=== PATIENT | female | born 1935 | race Asian ===

== ENCOUNTER 2020-03-12 16:49 | Inpatient (IN) | payer MEDICARE ==
[~2020-03-12] VITALS: Ht 152.4 cm; Wt 51.5 kg
--- NOTE | 2020-03-12 17:25 | Emergency Room Report ---
History of Present Illness General Chief Complaint: Flu Like Symptoms Source: Patient, EMS Present Illness HPI Disclaimer: Please note that this report is being documented using DRAGON technology. This can lead to erroneous entry secondary to incorrect interpretation by the dictating instrument. HPI: 84-year-old primarily Romanian speaking female presents for evaluation of myalgias, fevers and shortness of breath. EMS acting as financial officer. Patient reports yesterday she began to feel diffuse aches and pains in her joints and muscles, fatigue, decreased appetite, nonproductive cough and low-grade fevers. She felt more short of breath today called EMS. is hospitalized with COVID-19 pneumonia at [facility]. She tested negative by outpatient testing 2 days ago but then became symptomatic. Did not take any medication prior to arrival. EMS found her saturating 90% on room air but improved with supplemen kasey oxygen. PMH: Hypertension PSH: Reviewed Allergies: NKDA Social Hx: Reviewed Allergies: Coded Allergies: No Known Allergies (Unverified , 03/12/20) COVID-19 Screening Contact w/high risk pt: No Experienced COVID-19 symptoms?: Yes COVID-19 Testing performed [employer]: Yes COVID-19 Screening: Negative COVID-19 COVID-19 Testing Source: 3 days ago Nursing Documentation-PMH Past Medical History: No History, Except For Hx Hypertension: Yes Review of Systems All Other Systems: negative except mentioned in HPI Physical Exam Vital Signs Date Time Temp Pulse Resp B/P (MAP) Pulse Ox O2 Delivery O2 Flow Rate FiO2 03/12/20 16:45 99.3 108 16 143/80 (101) 99 Nasal Cannula 4.0 General: Awake and alert, appears fatigued HEENT: NC/AT. EOMI. Cardiovascular: Tachycardic Resp: Nasal cannula. Normal work of breathing. Occasional cough. No wheezing. Abdomen: Abdomen is soft, nondistended. Nontender Skin: Intact. No abrasions, laceration or rash over the exposed skin MSK: Normal tone and bulk. Moving all extremities. No obvious deformity. Neuro: Awake and alert. Mentating appropriately. Procedures Critical Care Time Critical Care Time Total critical care time: Approximately 45 minutes Due to a high probability of clinically significant, life threatening deterioration, the patient required the highest level of preparedness to int ervene emergently and I personally spent this critical care time directly and personally managing the patient. This critical care time included obtaining a history, examining the patient, pulse oximetry, ordering and reviewing studies, ordering treatments, evaluating response to treatment and updating management plan as needed, frequent reassessment and discussion with other providers as well as arranging for ultimate disposition. This critical to care time was performed to assess and manage the high probability of life-threatening deterioration that could result in multiorgan failure. This critical care time is separate from the separately billable procedures and treating other patients. Medical Decision Making Diagnostic Impression: Primary Impression: Pneumonia Additional Impressions: Hypoxia Elevated troponin COVID-19 Leukopenia Elevated d-dimer ER Course 84-year-old female presents for evaluation of flulike symptoms 2 days duration. Differential includes not limited to influenza, COVID-19 infection, pneumonia, bronchitis, electrolyte abnormality, dehydration, sepsis among others. Labs show leukopenia with a white cell count of 2.3. There is a neutrophil predominance. Lymphocytes are also low. Patient tested positive for COVID-19 and has bilateral patchy infiltrates consistent with Covid pneumonia. Treated with ceftriaxone and azithromycin. Received Decadron. Will admit for further treatment. Admitted to panel physician, Dr. Bruce. Laboratory Tests Test 03/12/20 18:25 White Blood Count 2.3 K/UL (4.8-10.8) L Red Blood Count 4.06 M/UL (4.20-5.40) L Hemoglobin 13.1 G/DL (12.0-16.0) Hematocrit 36.9 % (37.0-47.0) L Mean Corpuscular Volume 91 FL (80-99) Mean Corpuscular Hemoglobin 32.2 PG (27.0-31.0) H Mean Corpuscular Hemoglobin Concent 35.5 G/DL (32.0-36.0) Red Cell Distribution Width 13.4 % (11.6-14.8) Platelet Count 85 K/UL (150-450) L Mean Platelet Volume 9.1 FL (6.5-10.1) Neutrophils (%) (Auto) % (45.0-75.0) Lymphocytes (%) (Auto) % (20.0-45.0) Monocytes (%) (Auto) % (1.0-10.0) Eosinophils (%) (Auto) % (0.0-3.0) Basophils (%) (Auto) % (0.0-2.0) Differential Total Cells Counted 100 Neutrophils % (Manual) 79 % (45-75) H Lymphocytes % (Manual) 13 % (20-45) L Monocytes % (Manual) 3 % (1-10) Eosinophils % (Manual) 0 % (0-3) Basophils % (Manual) 0 % (0-2) Band Neutrophils 5 % (0-8) Platelet Estimate Decreased L Platelet Morphology Normal Red Blood Cell Morphology Normal Prothrombin Time 10.7 SEC (9.30-11.50) Prothrombin Time INR 1.0 (0.9-1.1) Activated Partial Thromboplast Time 34 SEC (23-33) H D-Dimer 1.01 mg/L FEU (0.00-0.49) H Urine Color Pale yellow Urine Appearance Slightly cloudy Urine pH 6 (4.5-8.0) Urine Specific [place] 1.015 (1.005-1.035) Urine Protein 3+ (NEGATIVE) H Urine Glucose (UA) Negative (NEGATIVE) Urine Ketones 3+ (NEGATIVE) H Urine Blood 5+ (NEGATIVE) H Urine Nitrite Negative (NEGATIVE) Urine Bilirubin Negative (NEGATIVE) Urine Urobilinogen Normal MG/DL (0.0-1.0) Urine Leukocyte Esterase Negative (NEGATIVE) Urine RBC 30-40 /HPF (0 - 2) H Urine WBC 0 /HPF (0 - 2) Urine Squamous Epithelial Cells Moderate /LPF (NONE/OCC) H Urine Bacteria Few /HPF (NONE) Arterial Blood pH 7.487 (7.350-7.450) Arterial Blood Partial Pressure CO2 30.0 mmHg (35.0-45.0) L Arterial Blood Partial Pressure O2 205.6 mmHg (75.0-100.0) H Arterial Blood HCO3 22.2 mmol/L (22.0-26.0) Arterial Blood Oxygen Saturation 99.1 % (95-100) Arterial Blood Base Excess -0.2 (-2-2) Richie Test Positive Sodium Level 134 MMOL/L (136-145) L Potassium Level 3.4 MMOL/L (3.5-5.1) L Chloride Level 101 MMOL/L (98-107) Carbon Dioxide Level 24 MMOL/L (21-32) Anion Gap 9 mmol/L (5-15) Blood Urea Nitrogen 21 mg/dL (7-18) H Creatinine 1.0 MG/DL (0.55-1.30) Estimated Glomerular Filtration Rate 52.8 mL/min (>60) Glucose Level 97 MG/DL (74-106) Lactic Acid Level 1.00 mmol/L (0.4-2.0) Calcium Level 7.8 MG/DL (8.5-10.1) L Phosphorus Level 1.8 MG/DL (2.5-4.9) L Magnesium Level 1.9 MG/DL (1.8-2.4) Ferritin 765 NG/ML (8-388) H Total Bilirubin 0.4 MG/DL (0.2-1.0) Aspartate Amino Transferase (AST) 70 U/L (15-37) H Alanine Aminotransferase (ALT) 33 U/L (12-78) Alkaline Phosphatase 51 U/L (46-116) Lactate Dehydrogenase 432 U/L (81-234) H Total Creatine Kinase 232 U/L (26-308) Creatine Kinase MB 1.1 NG/ML (0.0-3.6) Creatine Kinase MB Relative Index 0.4 Troponin I 0.073 ng/mL (0.000-0.056) C-Reactive Protein, Quantitative 6.5 mg/dL (0.00-0.90) H Pro-B-Type Natriuretic Peptide Pending Total Protein 6.5 G/DL (6.4-8.2) Albumin 3.0 G/DL (3.4-5.0) L Globulin 3.5 g/dL Albumin/Globulin Ratio 0.9 (1.0-2.7) L Lipase 631 U/L (73-393) H Microbiology Date/Time Source Procedure Growth Status 03/12/20 18:25 Nasal Nares - Final Complete 03/12/20 18:25 Nasal Nares - Final Complete 03/12/20 18:25 Nasopharynx SARS-CoV-2 RdRp Gene Assay - Final Complete EKG Diagnostic Results When was troponin ordered?: Mar 12, 2020 EKG Time: 18:35 Rate: normal Rhythm: NSR ST Segments: no acute changes Other Impression Sinus rhythm, right axis deviation, QTC 426 ms, no obvious ST segment elevation. Low voltage EKG Rhythm Strip Diag. Results Rhythm Strip Time: 18:35 EP Interpretation: yes Rate: 70s Rhythm: NSR, no PVC's, no ectopy Chest X-Ray Diagnostic Results Chest X-Ray Diagnostic Results : Chest X-Ray Ordered: Yes # of Views/Limited/Complete: 1 View Indication: Shortness of Breath EP Interpretation: Yes Interpretation: no effusion, no pneumothorax, other - Bilateral hazy opacities consistent with pneumonia Impression: Other - Bilateral pneumonia Electronically Signed by: Electronically signed by Dr. Juarez Uriarte MD Last Vital Signs Date Time Temp Pulse Resp B/P (MAP) Pulse Ox O2 Delivery O2 Flow Rate FiO2 03/12/20 16:45 99.3 108 16 143/80 (101) 99 Nasal Cannula 4.0 Disposition: ADMITTED INPATIENT Condition: Serious Juarez Uriarte MD Mar 12, 2020 17:25
[2020-03-12] MEDS ORDERED: Azithromycin 500 MG in NS 275 ML IVPB ONE (17:30)
[2020-03-12] MEDS ORDERED: dexAMETHasone 10mg/ml Inj IV ONE (17:30)
[2020-03-12] MEDS ORDERED: cefTRIAXone 1 GM in NS 55 ML IV ONE (17:30)
[2020-03-12 19:02] VITALS: BP 124/81
--- NOTE | 2020-03-12 19:15 | Diagnostic Imaging Report ---
ADDENDUM - Added by Kashmir Sherwood MD on 03/12/2020 7:15 PM (-08:00) EXAM: XR Chest, 1 View CLINICAL HISTORY: SOB TECHNIQUE: Frontal view of the chest. COMPARISON: No relevant prior studies available. FINDINGS: Lungs: Patchy left lower lobe opacity. Slightly increased opacity in the right upper lobe. Pleural space: No acute findings Heart: Mild cardiomegaly. Bones/joints: No acute findings. IMPRESSION: Bilateral lung opacities, correlate with infectious process. EXAM: XR Chest, 1 View CLINICAL HISTORY: SOB TECHNIQUE: Frontal view of the chest. COMPARISON: No relevant prior studies available. FINDINGS: Lungs: Patchy left lower lobe opacity. Slightly increased opacity in the right upper lobe. Pleural space: No acute findings Heart: No cardiomegaly. Bones/joints: No acute findings.
[2020-03-12 19:32] LABS: APPEARANCE,URINE SLIGHTLY CLOUDY; BILIRUBIN, URINE NEGATIVE (NEGATIVE); COLOR,URINE PALE YELLOW; GLUCOSE, URINE (UA) NEGATIVE (NEGATIVE); KETONES,URINE 3+ (NEGATIVE); LEUKOCYTE ESTERASE ,URINE NEGATIVE (NEGATIVE); NITRITE,URINE NEGATIVE (NEGATIVE); PH,URINE 6 (4.5-8.0); PROTEIN,URINE 3+ (NEGATIVE); UROBILINOGEN,URINE NORMAL MG/DL (0.0-1.0)
[2020-03-12 19:40] LABS: HEMATOCRIT 36.9 % (37.0-47.0); HEMOGLOBIN 13.1 G/DL (12.0-16.0); MEAN CORPUSCULAR VOLUME 91 FL (80-99); PLATELET COUNT 85 K/UL (150-450); RED BLOOD COUNT 4.06 M/UL (4.20-5.40); RED CELL DISTRIBUTION WIDTH 13.4 % (11.6-14.8); WHITE BLOOD COUNT 2.3 K/UL (4.8-10.8)
[2020-03-12 19:41] LABS: CALCIUM 7.8 MG/DL (8.5-10.1); POTASSIUM 3.4 MMOL/L (3.5-5.1)
[2020-03-12 19:56] LABS: ALBUMIN/GLOBULIN RATIO 0.9 (1.0-2.7); BILIRUBIN,TOTAL 0.4 MG/DL (0.2-1.0); CKMB 1.1 NG/ML (0.0-3.6); PHOSPHORUS 1.8 MG/DL (2.5-4.9)
[2020-03-12 21:05] VITALS: BP 124/76
--- NOTE | 2020-03-12 21:39 | Infectious Diseases Prog Note ---
Assessment/Plan Problems: (1) Suspected COVID-19 virus infection Assessment & Plan: Withe positive rapid test and high inflammatory markers , will send PCR test to confirm, start Remdisvir iv for 5 days and decadrone for 10 days , keep in enhanced droplets isolation . monitor inflammatory markers, check D dimer (2) Exposure to COVID-19 virus Assessment & Plan: most leikey from her , keep in isolation, obtain PCR test to confirm , highly likely infected with COVID 19 (3) Pneumonia due to COVID-19 virus Assessment & Plan: Will start Remdisvir with decadron , droplets isolation, aspiration precaution , sputum culture if she produces any (4) Acute respiratory failure due to COVID-19 Assessment & Plan: with hypoxemia , sating 90% on room air , continue high flow oxygen , attempt prone position if needed , remdisvir with decadron for now . monitor CXR and ABG Subjective Allergies: Coded Allergies: No Known Allergies (Unverified , 03/12/20) Objective Last 24 Hour Vital Signs Date Time Temp Pulse Resp B/P (MAP) Pulse Ox O2 Delivery O2 Flow Rate FiO2 03/12/20 21:05 99.3 67 29 124/76 96 Nasal Cannula 4.0 03/12/20 19:02 86 31 Nasal Cannula 4.0 03/12/20 19:02 99.3 86 16 124/81 100 Nasal Cannula 4.0 03/12/20 16:45 99.3 108 16 143/80 (101) 99 Nasal Cannula 4.0 Height (Feet): 5 Weight (Pounds): 105 Microbiology Date/Time Source Procedure Growth Status 03/12/20 18:25 Nasal Nares - Final Complete 03/12/20 18:25 Nasal Nares - Final Complete 03/12/20 18:25 Nasopharynx SARS-CoV-2 RdRp Gene Assay - Final Complete Laboratory Tests Test 03/12/20 18:25 White Blood Count 2.3 K/UL (4.8-10.8) L Red Blood Count 4.06 M/UL (4.20-5.40) L Hemoglobin 13.1 G/DL (12.0-16.0) Hematocrit 36.9 % (37.0-47.0) L Mean Corpuscular Volume 91 FL (80-99) Mean Corpuscular Hemoglobin 32.2 PG (27.0-31.0) H Mean Corpuscular Hemoglobin Concent 35.5 G/DL (32.0-36.0) Red Cell Distribution Width 13.4 % (11.6-14.8) Platelet Count 85 K/UL (150-450) L Mean Platelet Volume 9.1 FL (6.5-10.1) Neutrophils (%) (Auto) % (45.0-75.0) Lymphocytes (%) (Auto) % (20.0-45.0) Monocytes (%) (Auto) % (1.0-10.0) Eosinophils (%) (Auto) % (0.0-3.0) Basophils (%) (Auto) % (0.0-2.0) Differential Total Cells Counted 100 Neutrophils % (Manual) 79 % (45-75) H Lymphocytes % (Manual) 13 % (20-45) L Monocytes % (Manual) 3 % (1-10) Eosinophils % (Manual) 0 % (0-3) Basophils % (Manual) 0 % (0-2) Band Neutrophils 5 % (0-8) Platelet Estimate Decreased L Platelet Morphology Normal Red Blood Cell Morphology Normal Prothrombin Time 10.7 SEC (9.30-11.50) Prothromb Time International Ratio 1.0 (0.9-1.1) Activated Partial Thromboplast Time 34 SEC (23-33) H D-Dimer 1.01 mg/L FEU (0.00-0.49) H Urine Color Pale yellow Urine Appearance Slightly cloudy Urine pH 6 (4.5-8.0) Urine Specific [place] 1.015 (1.005-1.035) Urine Protein 3+ (NEGATIVE) H Urine Glucose (UA) Negative (NEGATIVE) Urine Ketones 3+ (NEGATIVE) H Urine Blood 5+ (NEGATIVE) H Urine Nitrite Negative (NEGATIVE) Urine Bilirubin Negative (NEGATIVE) Urine Urobilinogen Normal MG/DL (0.0-1.0) Urine Leukocyte Esterase Negative (NEGATIVE) Urine RBC 30-40 /HPF (0 - 2) H Urine WBC 0 /HPF (0 - 2) Urine Squamous Epithelial Cells Moderate /LPF (NONE/OCC) H Urine Bacteria Few /HPF (NONE) Arterial Blood pH 7.487 (7.350-7.450) Arterial Blood Partial Pressure CO2 30.0 mmHg (35.0-45.0) L Arterial Blood Partial Pressure O2 205.6 mmHg (75.0-100.0) H Arterial Blood HCO3 22.2 mmol/L (22.0-26.0) Arterial Blood Oxygen Saturation 99.1 % (95-100) Arterial Blood Base Excess -0.2 (-2-2) Richie Test Positive Sodium Level 134 MMOL/L (136-145) L Potassium Level 3.4 MMOL/L (3.5-5.1) L Chloride Level 101 MMOL/L (98-107) Carbon Dioxide Level 24 MMOL/L (21-32) Anion Gap 9 mmol/L (5-15) Blood Urea Nitrogen 21 mg/dL (7-18) H Creatinine 1.0 MG/DL (0.55-1.30) Estimat Glomerular Filtration Rate 52.8 mL/min (>60) Glucose Level 97 MG/DL (74-106) Lactic Acid Level 1.00 mmol/L (0.4-2.0) Calcium Level 7.8 MG/DL (8.5-10.1) L Phosphorus Level 1.8 MG/DL (2.5-4.9) L Magnesium Level 1.9 MG/DL (1.8-2.4) Ferritin 765 NG/ML (8-388) H Total Bilirubin 0.4 MG/DL (0.2-1.0) Aspartate Amino Transf (AST/SGOT) 70 U/L (15-37) H Alanine Aminotransferase (ALT/SGPT) 33 U/L (12-78) Alkaline Phosphatase 51 U/L (46-116) Lactate Dehydrogenase 432 U/L (81-234) H Total Creatine Kinase 232 U/L (26-308) Creatine Kinase MB 1.1 NG/ML (0.0-3.6) Creatine Kinase MB Relative Index 0.4 Troponin I 0.073 ng/mL (0.000-0.056) C-Reactive Protein, Quantitative 6.5 mg/dL (0.00-0.90) H Pro-B-Type Natriuretic Peptide Pending Total Protein 6.5 G/DL (6.4-8.2) Albumin 3.0 G/DL (3.4-5.0) L Globulin 3.5 g/dL Albumin/Globulin Ratio 0.9 (1.0-2.7) L Lipase 631 U/L (73-393) H Juice Moreno M.D. Mar 12, 2020 21:39
[2020-03-12 23:00] VITALS: BP 119/72
[2020-03-12] MEDS ORDERED: Enoxaparin 40mg Inj SUBQ ONE (23:00)
[2020-03-12] MEDS ORDERED: LORazepam Inj 2mg/ml 1ml IV PRN (23:45)
[2020-03-12] MEDS ORDERED: Zolpidem 5mg tab ORAL PRN (23:45)
[2020-03-12] MEDS ORDERED: Miralax 17gm pkt ORAL PRN (23:45)
[2020-03-13] VITALS (8 sets, daily range): BP systolic 112–137; BP diastolic 61–76
[2020-03-13] MEDS ORDERED: NS w/KCl 20mEq 1000ml 1,000 ML IV SCH (00:45)
[2020-03-13] MEDS ORDERED: Enoxaparin 40mg Inj SUBQ ONE (03:35)
[2020-03-13 06:41] LABS: HEMATOCRIT 39.7 % (37.0-47.0); HEMOGLOBIN 13.7 G/DL (12.0-16.0); MEAN CORPUSCULAR VOLUME 94 FL (80-99); PLATELET COUNT 91 K/UL (150-450); RED BLOOD COUNT 4.21 M/UL (4.20-5.40); RED CELL DISTRIBUTION WIDTH 12.6 % (11.6-14.8)
[2020-03-13 06:46] LABS: WHITE BLOOD COUNT 1.4 K/UL (4.8-10.8)
[2020-03-13 07:53] LABS: ALBUMIN 2.4 G/DL (3.4-5.0); ALBUMIN/GLOBULIN RATIO 0.7 (1.0-2.7); BILIRUBIN,TOTAL 0.3 MG/DL (0.2-1.0); CALCIUM 7.1 MG/DL (8.5-10.1); CREATININE 0.9 MG/DL (0.55-1.30); POTASSIUM 5.2 MMOL/L (3.5-5.1)
--- NOTE | 2020-03-13 07:55 | History & Physical ---
History and Physical History & Physicial Patient is seen and examined in the ER. Full Dictation completed Alison Bruce MD Mar 13, 2020 07:55
--- NOTE | 2020-03-13 07:58 | General Progress Note ---
Subjective Allergies: Coded Allergies: No Known Allergies (Unverified , 03/12/20) Objective Last 24 Hour Vital Signs Date Time Temp Pulse Resp B/P (MAP) Pulse Ox O2 Delivery O2 Flow Rate FiO2 03/13/20 06:21 98.8 56 20 126/76 100 Nasal Cannula 3.0 03/13/20 03:49 98.8 64 20 112/76 100 Nasal Cannula 3.0 03/13/20 02:09 99.0 67 24 116/70 100 Nasal Cannula 3.0 03/12/20 23:00 99.0 69 26 119/72 100 Nasal Cannula 3.0 03/12/20 21:05 99.3 67 29 124/76 96 Nasal Cannula 4.0 03/12/20 19:02 86 31 Nasal Cannula 4.0 03/12/20 19:02 99.3 86 16 124/81 100 Nasal Cannula 4.0 03/12/20 16:45 99.3 108 16 143/80 (101) 99 Nasal Cannula 4.0 Laboratory Tests 03/12/20 18:25: White Blood Count 2.3L, Red Blood Count 4.06L, Hemoglobin 13.1, Hematocrit 36.9L , Mean Corpuscular Volume 91, Mean Corpuscular Hemoglobin 32.2H, Mean Corpuscular Hemoglobin Concent 35.5, Red Cell Distribution Width 13.4, Platelet Count 85L, Mean Platelet Volume 9.1, Neutrophils (%) (Auto) , Lymphocytes (%) (Auto) , Monocytes (%) (Auto) , Eosinophils (%) (Auto) , Basophils (%) (Auto) , Differential Total Cells Counted 100, Neutrophils % (Manual) 79H, Lymphocytes % (Manual) 13L, Monocytes % (Manual) 3, Eosinophils % (Manual) 0, Basophils % (Manual) 0, Band Neutrophils 5, Platelet Estimate DecreasedL, Platelet Morphology Normal, Red Blood Cell Morphology Normal, Prothrombin Time 10.7, Prothromb Time International Ratio 1.0, Activated Partial Thromboplast Time 34H, D-Dimer 1.01H, Urine Color Pale yellow, Urine Appearance Slightly cloudy, Urine pH 6, Urine Specific [place] 1.015, Urine Protein 3+H, Urine Glucose (UA) Negative, Urine Ketones 3+H, Urine Blood 5+H, Urine Nitrite Negative, Urine Bilirubin Negative, Urine Urobilinogen Normal, Urine Leukocyte Esterase Negative, Urine RBC 30-40H, Urine WBC 0, Urine Squamous Epithelial Cells ModerateH, Urine Bacteria Few, Arterial Blood pH 7.487H, Arterial Blood Partial Pressure CO2 30.0L, Arterial Blood Partial Pressure O2 205.6H, Arterial Blood HCO3 22.2, Arterial Blood Oxygen Saturation 99.1, Arterial Blood Base Excess - 0.2, Richie Test Positive, Sodium Level 134L, Potassium Level 3.4L, Chloride Level 101, Carbon Dioxide Level 24, Anion Gap 9, Blood Urea Nitrogen 21H, Creatinine 1.0, Estimat Glomerular Filtration Rate 52.8, Glucose Level 97, Lactic Acid Level 1.00, Calcium Level 7.8L, Phosphorus Level 1.8L, Magnesium Level 1.9, Ferritin 765H, Total Bilirubin 0.4, Aspartate Amino Transf (AST/SGOT) 70H, Alanine Aminotransferase (ALT/SGPT) 33, Alkaline Phosphatase 51, Lactate Dehydrogenase 432H, Total Creatine Kinase 232, Creatine Kinase MB 1.1, Creatine Kinase MB Relative Index 0.4, Troponin I 0.073H, C-Reactive Protein, Quantitative 6.5H, Pro-B-Type Natriuretic Peptide [Pending], Total Protein 6.5, Albumin 3.0L, Globulin 3.5, Albumin/Globulin Ratio 0.9L, Lipase 631H 03/13/20 05:35: White Blood Count 1.4*L, Red Blood Count 4.21, Hemoglobin 13.7, Hematocrit 39.7, Mean Corpuscular Volume 94, Mean Corpuscular Hemoglobin 32.5H, Mean Corpuscular Hemoglobin Concent 34.5, Red Cell Distribution Width 12.6, Platelet Count 91L, Mean Platelet Volume 8.3, Neutrophils (%) (Auto) , Lymphocytes (%) (Auto) , Monocytes (%) (Auto) , Eosinophils (%) (Auto) , Basophils (%) (Auto) , Neutrophils % (Manual) [Pending], Lymphocytes % (Manual) [Pending], Platelet Estimate [Pending], Platelet Morphology [Pending], D-Dimer 0.75H 03/13/20 07:17: Sodium Level [Pending], Potassium Level [Pending], Chloride Level [Pending], Carbon Dioxide Level [Pending], Blood Urea Nitrogen [Pending], Creatinine [Pendi ng], Estimat Glomerular Filtration Rate [Pending], Glucose Level [Pending], Calcium Level [Pending], Total Bilirubin [Pending], Aspartate Amino Transf (AST/SGOT) [Pending], Alanine Aminotransferase (ALT/SGPT) [Pending], Alkaline Phosphatase [Pending], Total Protein [Pending], Albumin [Pending], Globulin [Pending] Height (Feet): 5 Weight (Pounds): 105 Assessment/Plan Assessment/Plan: Full Dictation completed. A/p: 1- Sepsis 2- COVID - Pneumonia 3- ARF 4- Acute Leukopenia Plan: current antibiotic Hem consulted pending cultures Alison Bruce MD Mar 13, 2020 07:58
[2020-03-13] MEDS ORDERED: Loading Dose:Remdesivir 200mg/NS 210ml IV SCH ×2 (11:00)
--- NOTE | 2020-03-13 15:30 | History and Physical Report ---
DATE OF ADMISSION: 03/12/2020 SOURCE OF INFORMATION: Patient and EMR. HISTORY OF PRESENT ILLNESS: Patient is an 84-year-old female who presented with diffuse weakness and cough and shortness of breath. Patient has been exposed to the family who reportedly most of them have been diagnosed with COVID. At the time of evaluation of patient in the ER, patient is in mild shortness of breath. Denies any chest pain. Denies any nausea or vomitus. Denies any blood in the stool. FAMILY HISTORY: Reviewed noncontributory. ALLERGIES: NKDA. REVIEW OF SYSTEMS: All 12 elements of review of systems reviewed. Pertinent positive and negative as above. MEDICATIONS: Current hospital medications including azithromycin, ceftriaxone, dexamethasone. PAST MEDICAL AND SURGICAL HISTORY: Unknown. SOCIAL HISTORY: Patient denies history of illicit drug abuse, smoking, or alcohol abuse. Remainder cannot be obtained. PHYSICAL EXAMINATION: VITAL SIGNS: Blood pressure of 140/80, temperature 98.2, pulse ox of 99% on 4 liters of oxygen, pulse rate of 110, respiratory rate 20. HEAD AND NECK: Atraumatic and normocephalic. CHEST: Diffuse bronchial breathing sounds. HEART: S1, S2. Regular rate and rhythm. ABDOMEN: Soft. No organomegaly. MUSCULOSKELETAL: No gross lateralized motor deficit. NEUROLOGY: Patient is awake, alert, oriented x3. Chest x-ray dated 03/12/2020 shows bilateral lung opacities. LABORATORY DATA: Labs dated 03/12/2020 shows WBC 2.3, hemoglobin of 13.1, platelet count of 85. Sodium 134, potassium 3.4, BUN 21, creatinine 1. AST of 70. Troponin of 0.07. BNP and C-reactive protein of 6.5. Lipase of 631. ASSESSMENT AND PLAN: 1. COVID positive pneumonia. 2. Acute renal failure. 3. Leukopenia. 4. Thrombocytopenia. 5. Abnormal LFT. 6. Abnormal troponin levels. 7. GI and DVT prophylaxes. PLAN OF CARE: Continue with isolation. Start empiric antibiotic treatment pending cultures. Infectious Disease, Pulmonary Critical Care, Nephrology have been consulted as well as hospital receptionist. The time of this dictation does not reflect the actual encounter on 03/12/2020. Alison Bruce M.D. DR: NHUNG JOB#: [id number] CC:
[2020-03-13] MEDS: cefTRIAXone 1 GM in D5W 55 ML IVPB SCH (17:36)
[2020-03-13] MEDS: Azithromycin 500 MG in D5W 275 ML IV SCH (18:50)
--- NOTE | 2020-03-13 19:15 | Consultation ---
DATE OF ADMISSION: 03/12/2020 CONSULTING PHYSICIAN: SULLY Gordon ATTENDING PHYSICIAN: Alison Bruce MD REASON FOR CONSULTATION: Flu-like symptoms, COVID-19 pneumonia. HISTORY OF PRESENT ILLNESS: This is an 84-year-old primarily Thai-speaking female with history of hypertension, who presented to the ED for evaluation of myalgias, fevers, and shortness of breath. Patient reported 1-day history of diffuse aches and pains in her joints and muscles, fatigue, decreased appetite, nonproductive cough, and low-grade fevers. Her is hospitalized with COVID-19 pneumonia at [facility]. Patient tested positive for COVID-19 test. Patient was saturating 90% on room air, but improved with supplemental oxygen. Chest x-ray showed bilateral lung opacities. Initial laboratory tests showed leukopenia, troponin 0.073, CRP 6.5, albumin 3.0. ABG showed respiratory alkalosis. Patient was seen in the ER, awaiting placement for admission for further treatment. Patient received ceftriaxone and azithromycin and Decadron in the ER. PAST MEDICAL HISTORY: Hypertension. MEDICATIONS: No home medications reported. ALLERGIES: No known allergies. FAMILY HISTORY: Noncontributory. PERSONAL AND SOCIAL HISTORY: Lives at home with . REVIEW OF SYSTEMS: HEENT: Reports headache. CHEST AND LUNGS: Denies any chest discomfort or hemoptysis. CARDIOVASCULAR: Denies any exertional chest pain, pressure, palpitation, orthopnea. GASTROINTESTINAL: Denies vomiting, abdominal pain, or oily or foul-smelling stools. No constipation or hematochezia. GENITOURINARY: Denies any frequency, urgency, dysuria, hematuria, flank pain. NEUROLOGICAL: Denies seizure activity, dizziness, or fainting episodes. PHYSICAL EXAMINATION: VITAL SIGNS: Blood pressure 126/76, heart rate 56, respiratory rate 20, weight 47 kg, height 152 cm. GENERAL: Appears fatigued, anxious. HEENT: Head exam reveals that the head is normocephalic, atraumatic without deformity or unusual swelling. Pupils are PERRLA. There is no nystagmus, lid lag, or exophthalmos. Vision is normal. CHEST AND LUNGS: On nasal cannula. Normal work of breathing. Occasional cough. No wheezing. CARDIOVASCULAR: Reveals normal S1, S2 without murmurs, rubs, or clicks. ABDOMEN: Soft with no tenderness or organomegaly. RECTAL: Deferred. MUSCULOSKELETAL: There is no tenderness to palpation. Range of motion is normal. NEUROLOGICAL: Cranial nerves II through XII are intact. LABORATORY DATA: Laboratory testing shows WBC 1.4, platelets 91. Chemistries show potassium 5.2, BUN 21, calcium 7.1, AST 67, total protein 5.9, albumin 2.4. ABG shows pH 7.487, pCO2 30.0, pO2 205.6. Urinalysis shows 3+ protein, 3+ ketones, 5+ blood. IMPRESSION: 1. COVID-19 pneumonia with hypoxia. - On remdesivir and Decadron per Dr. Moreno. - On ceftriaxone and azithromycin per Dr. Bruce. - Currently saturating well on low-flow oxygen. - Continue supplemental oxygen. - Monitor chest x-ray. 2. Leukopenia. 3. Elevated D-dimer. 4. Respiratory alkalosis. We will follow carefully. The care for this patient was discussed with my supervising physician. Time spent for this case was approximately 31 minutes. Agustín Marin M.D. SULLY [place] DR: ARTIE JOB#: [id number] CC: USMAN
--- NOTE | 2020-03-13 19:58 | Infectious Diseases Prog Note ---
Assessment/Plan Problems: (1) Suspected COVID-19 virus infection Assessment & Plan: Withe positive rapid test and high inflammatory markers , await PCR test to confirm, continue Remdisvir iv for 5 days and decadrone for 10 days , keep in enhanced droplets isolation . monitor inflammatory markers, check D dimer (2) Exposure to COVID-19 virus Assessment & Plan: most likely from her , keep in isolation, monitor PCR test to confirm , highly likely infected with COVID 19 (3) Pneumonia due to COVID-19 virus Assessment & Plan: continue Remdisvir with decadron , droplets isolation, aspiration precaution , sputum culture if she produces any (4) Acute respiratory failure due to COVID-19 Assessment & Plan: with hypoxemia , sating 90% on room air , continue high flow oxygen , attempt prone position if needed , remdisvir with decadron for now . monitor CXR and ABG Subjective ROS Limited/Unobtainable: Yes Allergies: Coded Allergies: No Known Allergies (Unverified , 03/12/20) she is lethargic , minimally responsive, on low flow oxygen, afebrile Objective Last 24 Hour Vital Signs Date Time Temp Pulse Resp B/P (MAP) Pulse Ox O2 Delivery O2 Flow Rate FiO2 03/13/20 19:27 98.8 68 20 137/61 97 Nasal Cannula 3.0 03/13/20 17:15 98.8 60 19 136/66 99 Nasal Cannula 3.0 03/13/20 13:42 98.8 64 17 130/61 97 Nasal Cannula 3.0 03/13/20 11:10 98.8 57 18 119/70 99 Nasal Cannula 3.0 03/13/20 09:20 98.8 58 21 121/74 97 Nasal Cannula 3.0 03/13/20 06:21 98.8 56 20 126/76 100 Nasal Cannula 3.0 03/13/20 03:49 98.8 64 20 112/76 100 Nasal Cannula 3.0 03/13/20 02:09 99.0 67 24 116/70 100 Nasal Cannula 3.0 03/12/20 23:00 99.0 69 26 119/72 100 Nasal Cannula 3.0 03/12/20 21:05 99.3 67 29 124/76 96 Nasal Cannula 4.0 Height (Feet): 5 Weight (Pounds): 105 General Appearance: WD/WN, no acute distress HEENT: normocephalic, atraumatic, anicteric, mucous membranes moist, PERRL Respiratory/Chest: chest wall non-tender, no respiratory distress, no accessory muscle use, decreased breath sounds, crackles/rales Cardiovascular: normal peripheral pulses, normal rate, regular rhythm, no gallop/murmur, no JVD Abdomen: normal bowel sounds, soft, non tender, no organomegaly, non distended, no mass, no scars Genitourinary: normal external genitalia Extremities: no cyanosis, no clubbing Skin: no rash, no lesions 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, alert, responsive Lymphatic: no neck adenopathy, no groin adenopathy Musculoskeletal: normal muscle bulk, no effusion Microbiology Date/Time Source Procedure Growth Status 03/12/20 18:25 Nasal Nares - Final Complete 03/12/20 18:25 Nasal Nares - Final Complete 03/12/20 18:25 Nasopharynx SARS-CoV-2 RdRp Gene Assay - Final Complete Laboratory Tests Test 03/13/20 05:35 03/13/20 07:17 White Blood Count 1.4 K/UL (4.8-10.8) *L Red Blood Count 4.21 M/UL (4.20-5.40) Hemoglobin 13.7 G/DL (12.0-16.0) Hematocrit 39.7 % (37.0-47.0) Mean Corpuscular Volume 94 FL (80-99) Mean Corpuscular Hemoglobin 32.5 PG (27.0-31.0) H Mean Corpuscular Hemoglobin Concent 34.5 G/DL (32.0-36.0) Red Cell Distribution Width 12.6 % (11.6-14.8) Platelet Count 91 K/UL (150-450) L Mean Platelet Volume 8.3 FL (6.5-10.1) Neutrophils (%) (Auto) % (45.0-75.0) Lymphocytes (%) (Auto) % (20.0-45.0) Monocytes (%) (Auto) % (1.0-10.0) Eosinophils (%) (Auto) % (0.0-3.0) Basophils (%) (Auto) % (0.0-2.0) Differential Total Cells Counted 100 Neutrophils % (Manual) 67 % (45-75) Lymphocytes % (Manual) 28 % (20-45) Monocytes % (Manual) 5 % (1-10) Eosinophils % (Manual) 0 % (0-3) Basophils % (Manual) 0 % (0-2) Band Neutrophils 0 % (0-8) Platelet Estimate Decreased L Platelet Morphology Normal Red Blood Cell Morphology Normal D-Dimer 0.75 mg/L FEU (0.00-0.49) H Sodium Level 137 MMOL/L (136-145) Potassium Level 5.2 MMOL/L (3.5-5.1) #H Chloride Level 106 MMOL/L (98-107) Carbon Dioxide Level 26 MMOL/L (21-32) Anion Gap 5 mmol/L (5-15) Blood Urea Nitrogen 21 mg/dL (7-18) H Creatinine 0.9 MG/DL (0.55-1.30) Estimat Glomerular Filtration Rate 59.7 mL/min (>60) Glucose Level 117 MG/DL (74-106) H Calcium Level 7.1 MG/DL (8.5-10.1) L Total Bilirubin 0.3 MG/DL (0.2-1.0) Aspartate Amino Transf (AST/SGOT) 67 U/L (15-37) H Alanine Aminotransferase (ALT/SGPT) 35 U/L (12-78) Alkaline Phosphatase 49 U/L (46-116) Total Protein 5.9 G/DL (6.4-8.2) L Albumin 2.4 G/DL (3.4-5.0) L Globulin 3.5 g/dL Albumin/Globulin Ratio 0.7 (1.0-2.7) L Current Medications Medications (Trade) Dose Ordered Sig/Marcello Route PRN Reason Start Time Stop Time Status Last Admin Dose Admin Azithromycin 500 mg/Dextrose 275 ml @ 275 mls/hr Q24H IV 03/13/20 17:30 03/18/20 17:29 03/13/20 18:50 Ceftriaxone Sodium 1 gm/ Dextrose 55 ml @ 110 mls/hr Q24H IVPB 03/13/20 17:30 03/20/20 17:29 03/13/20 17:36 Dexamethasone Sodium Phosphate (Decadron 4mg/ml vial) 6 mg DAILY IVP 03/13/20 09:00 03/17/20 23:23 03/13/20 09:02 Famotidine (Pepcid) 20 mg DAILY ORAL 03/13/20 09:00 06/11/20 08:59 03/13/20 09:03 Lorazepam (Ativan 2mg/ml 1ml) 0.5 mg Q4H PRN IV For Anxiety 03/12/20 23:45 03/19/20 23:44 Ondansetron HCl (Zofran) 4 mg Q6H PRN IVP Nausea & Vomiting 03/12/20 23:45 04/11/20 23:44 Polyethylene Glycol (Miralax) 17 gm DAILYPRN PRN ORAL Constipation 03/12/20 23:45 04/11/20 23:44 Potassium Chloride/Sodium Chloride 1,000 ml @ 50 mls/hr Q20H IV 03/13/20 00:45 04/12/20 00:44 03/13/20 03:39 Remdesivir 100 mg/ Sodium Chloride 250 ml @ 250 mls/hr Q24H IV 03/14/20 11:00 03/17/20 10:59 Remdesivir 200 mg/ Sodium Chloride 250 ml @ 125 mls/hr ONCE IV 03/13/20 11:00 03/14/20 10:59 03/13/20 11:14 Zolpidem Tartrate (Ambien) 5 mg HSPRN PRN ORAL Insomnia 03/12/20 23:45 03/19/20 23:44 Juice Moreno M.D. Mar 13, 2020 19:58
--- NOTE | 2020-03-13 20:15 | Consultation ---
DATE OF CONSULTATION: 03/12/2020 INFECTIOUS DISEASE CONSULTATION CONSULTING PHYSICIAN: Juice Moreno MD. REFERRING PHYSICIAN: Alison Bruce MD. REASON FOR CONSULTATION: Suspected COVID-19 infection due to exposure with pneumonia and acute respiratory failure. Recommendation for antimicrobial treatment. HISTORY OF PRESENT ILLNESS: The patient is an 84-year-old [place]ian female with past medical history of hypertension, presented to [facility] emergency room with fever, shortness of breath and generalized body ache for the last couple of days. The patient reported generalized body ache and pains in her joint and muscles with fatigue and decreased appetite for the last couple of days. She also developed cough with low-grade fever. Her shortness of breath has been progressive today, so she was brought into the emergency room via paramedics. Since her recently tested positive for COVID-19 with pneumonia and he was hospitalized at [facility]. The patient's saturation was found to be low 90% on room air when paramedics arrived, but improved later with oxygen supplement. Her vitals in the ER showed low-grade fever of 99.3 with pulse of 108 and saturation of 99% on 4 liters. The patient had extensive workup in the ED revealed neutropenia with white count of 2.3, hemoglobin of 13.1, and elevated lymphocyte ratio. Her D-dimer was mildly elevated. Chest x-ray in the emergency room showed patchy infiltration on both sides concerning for pneumonia. Her rapid test screening for COVID-19 came back positive, so Infectious Disease consultation was requested for further evaluation and antimicrobial treatment. REVIEW OF SYSTEMS: Unable to obtain, the patient is a poor historian and cannot provide good history at this time. Most details were obtained from medical records. PAST MEDICAL HISTORY: Significant for hypertension. SOCIAL HISTORY: The patient is retired, lives with at home. Denied using any drugs, tobacco, or alcohol. PAST SURGICAL HISTORY: Not on record. ALLERGIES: She has no known drug allergies. MEDICATIONS: The patient was given Zithromax with ceftriaxone and one dose of dexamethasone in the ER. PHYSICAL EXAMINATION: VITAL SIGNS: Temperature 99.3, pulse 86, respirations 16, blood pressure 124/81. Saturation 100% on 4 L nasal cannula. GENERAL: An elderly female, lying in bed, lethargic, awake and alert, Lithuanian speaker mainly. HEENT: Normocephalic and atraumatic. Pupils are reactive to light equally. Dry oral mucosa. No exudate or thrush. NECK: Supple. No lymphadenopathy. CARDIOVASCULAR: She is tachycardic. S1 and S2 normal. No murmur LUNGS: She had mild rhonchi. Normal breathing efforts. No wheezing. ABDOMEN: Soft, nontender, nondistended. Normal bowel sounds. No hepatosplenomegaly or ascites. EXTREMITIES: No edema or cyanosis. No clubbing. SKIN: No rash. No hives. No ulceration. NEUROLOGIC: Awake and alert with no focal deficits. LABORATORY DATA: Showed white count of 2.3, hemoglobin of 13.1, platelet count of 85,000. BUN of 21, creatinine of 1. Lactic acid of 1. Ferritin of 765. ALT of 53. LDH of 432 and C-reactive protein of 6.5 with lipase of 631. Urinalysis was negative for UTI. Microbiology - screening for COVID-19 with rapid test came back positive. IMAGING: Chest x-ray in ED showed bilateral lung opacities suspicious for infectious process. ASSESSMENT AND RECOMMENDATION: 1. Suspected COVID-19 virus infection with positive rapid test and high inflammatory markers. We will send PCR test to confirm, start remdesivir IV for five days and Decadron IV for 10 days. Keep in enhanced droplet isolation. Monitor inflammatory markers including D-dimer. 2. Exposure to COVID-19 virus, most likely from her . Keep in isolation. Obtain PCR to confirm. Highly likely infected with COVID-19. 3. Pneumonia suspect due to COVID-19 viral infection. We will start the patient on remdesivir with Decadron. Keep droplet and enhanced isolation with aspiration precautions. Sputum culture if she produces any. 4. Acute respiratory failure with hypoxemia due to COVID-19. Continue high-flow oxygen. Attempt prone position if needed. We will start remdesivir with Decadron for now. Monitor chest x-ray and ABG. Thank you for the consult. ID will continue to follow. Juice Moreno M.D. DR: PATEL JOB#: [id number] CC:
[2020-03-14] VITALS: BP 124/76
[2020-03-14 04:00] VITALS: BP 125/68
[2020-03-14 07:16] LABS: ANION GAP 9 mmol/L (5-15); BLOOD UREA NITROGEN 29 mg/dL (7-18); CALCIUM 7.9 MG/DL (8.5-10.1); CARBON DIOXIDE 23 MMOL/L (21-32); CHLORIDE 106 MMOL/L (98-107); CREATININE 0.8 MG/DL (0.55-1.30); POTASSIUM 4.1 MMOL/L (3.5-5.1); SODIUM 138 MMOL/L (136-145)
[2020-03-14 07:20] LABS: ALANINE AMINOTRANSFERASE 46 U/L (12-78); ALBUMIN 2.7 G/DL (3.4-5.0); ALBUMIN/GLOBULIN RATIO 0.7 (1.0-2.7); ALKALINE PHOSPHATASE 51 U/L (46-116); ASPARTATE AMINO TRANSFERASE 81 U/L (15-37); BILIRUBIN,TOTAL 0.3 MG/DL (0.2-1.0)
[2020-03-14 08:00] VITALS: BP 118/83
[2020-03-14 08:03] LABS: BASOPHILS % (AUTO) 0.2 % (0.0-2.0); EOSINOPHILS % (AUTO) 0.1 % (0.0-3.0); HEMATOCRIT 43.7 % (37.0-47.0); HEMOGLOBIN 14.6 G/DL (12.0-16.0); LYMPHOCYTES % (AUTO) 12.6 % (20.0-45.0); MEAN CORPUSCULAR VOLUME 97 FL (80-99); MONOCYTES % (AUTO) 5.3 % (1.0-10.0); NEUTROPHILS % (AUTO) 81.8 % (45.0-75.0); PLATELET COUNT 108 K/UL (150-450); RED BLOOD COUNT 4.53 M/UL (4.20-5.40); RED CELL DISTRIBUTION WIDTH 12.9 % (11.6-14.8); WHITE BLOOD COUNT 4.3 K/UL (4.8-10.8)
--- NOTE | 2020-03-14 09:36 | General Progress Note ---
Subjective Allergies: Coded Allergies: No Known Allergies (Unverified , 03/12/20) Objective Last 24 Hour Vital Signs Date Time Temp Pulse Resp B/P (MAP) Pulse Ox O2 Delivery O2 Flow Rate FiO2 03/14/20 04:00 96.9 54 18 125/68 (87) 100 03/14/20 04:00 43 03/14/20 00:00 97.6 74 18 124/76 (92) 95 03/14/20 00:00 74 03/13/20 22:41 Nasal Cannula 3.0 03/13/20 21:00 98.2 95 20 132/69 98 Nasal Cannula 3.0 03/13/20 19:27 98.8 68 20 137/61 97 Nasal Cannula 3.0 03/13/20 17:15 98.8 60 19 136/66 99 Nasal Cannula 3.0 03/13/20 13:42 98.8 64 17 130/61 97 Nasal Cannula 3.0 03/13/20 11:10 98.8 57 18 119/70 99 Nasal Cannula 3.0 Laboratory Tests 03/14/20 04:00: White Blood Count 4.3#L, Red Blood Count 4.53, Hemoglobin 14.6, Hematocrit 43.7, Mean Corpuscular Volume 97, Mean Corpuscular Hemoglobin 32.3H, Mean Corpuscular Hemoglobin Concent 33.4, Red Cell Distribution Width 12.9, Platelet Count 108L, Mean Platelet Volume 8.3, Neutrophils (%) (Auto) 81.8H, Lymphocytes (%) (Auto) 12.6L, Monocytes (%) (Auto) 5.3, Eosinophils (%) (Auto) 0.1, Basophils (%) (Auto) 0.2, Sodium Level 138, Potassium Level 4.1, Chloride Level 106, Carbon Dioxide Level 23, Anion Gap 9, Blood Urea Nitrogen 29H, Creatinine 0.8, Estimat Glomerular Filtration Rate > 60, Glucose Level 116H, Calcium Level 7.9L, Total Bilirubin 0.3, Direct Bilirubin < 0.1, Aspartate Amino Transf (AST/SGOT) 81H, Alanine Aminotransferase (ALT/SGPT) 46, Alkaline Phosphatase 51, Total Protein 6.4, Albumin 2.7L, Globulin 3.7, Albumin/Globulin Ratio 0.7L Height (Feet): 5 Height (Inches): 0.00 Weight (Pounds): 105 Assessment/Plan Assessment/Plan: S, O: seems comfortable, PHYSICAL EXAMINATION:HEAD AND NECK: Atraumatic and normocephalic. CHEST: Diffuse bronchial breathing sounds. HEART: S1, S2. Regular rate and rhythm. ABDOMEN: Soft. No organomegaly. MUSCULOSKELETAL: No gross lateralized motor deficit. NEUROLOGY: Patient is awake, alert, oriented x3. Meds: reviewed and reconciled ASSESSMENT AND PLAN: 1. COVID positive pneumonia. 2. Acute renal failure. 3. Leukopenia. 4. Thrombocytopenia. 5. Abnormal LFT. 6. Abnormal troponin levels. 7. GI and DVT prophylaxes. PLAN OF CARE: Current management. interval improvement in PLt and wbc counts Alison Bruce MD Mar 14, 2020 09:36
[2020-03-14] MEDS ORDERED: dexAMETHasone 10mg/ml Inj IV SCH (11:00)
[2020-03-14] MEDS: Maintenance Dose:Remdesivir 100mg/NS 230ml x 4 Doses IV SCH ×2 (11:10)
[2020-03-14 12:00] VITALS: BP 128/88
--- NOTE | 2020-03-14 14:39 | Infectious Diseases Prog Note ---
Assessment/Plan Problems: (1) Suspected COVID-19 virus infection Assessment & Plan: With positive rapid test and high inflammatory markers , await PCR test to confirm, continue Remdisvir iv for 5 days and decadrone for 10 days , keep in enhanced droplets isolation . monitor inflammatory markers (2) Exposure to COVID-19 virus Assessment & Plan: most likely from her , keep in isolation, monitor PCR test to confirm , highly likely infected with COVID 19 (3) Pneumonia due to COVID-19 virus Assessment & Plan: continue Remdisvir with decadron , droplets isolation, aspiration precaution , sputum culture if she produces any (4) Acute respiratory failure due to COVID-19 Assessment & Plan: with hypoxemia , sating 90% on room air , continue high flow oxygen , attempt prone position if needed , remdisvir with decadron for now . monitor CXR and ABG Subjective ROS Limited/Unobtainable: Yes Allergies: Coded Allergies: No Known Allergies (Unverified , 03/12/20) she is more awake and responsive, satting well on low flow oxygen, afebrile, no shortness of breath and no diarrhea Objective Last 24 Hour Vital Signs Date Time Temp Pulse Resp B/P (MAP) Pulse Ox O2 Delivery O2 Flow Rate FiO2 03/14/20 12:00 69 03/14/20 12:00 97.6 77 18 128/88 (101) 97 03/14/20 09:00 Nasal Cannula 3.0 03/14/20 08:00 59 03/14/20 08:00 98.4 71 18 118/83 (95) 100 03/14/20 04:00 96.9 54 18 125/68 (87) 100 03/14/20 04:00 43 03/14/20 00:00 97.6 74 18 124/76 (92) 95 03/14/20 00:00 74 03/13/20 22:41 Nasal Cannula 3.0 03/13/20 21:00 98.2 95 20 132/69 98 Nasal Cannula 3.0 03/13/20 19:27 98.8 68 20 137/61 97 Nasal Cannula 3.0 03/13/20 17:15 98.8 60 19 136/66 99 Nasal Cannula 3.0 Height (Feet): 5 Height (Inches): 0.00 Weight (Pounds): 105 General Appearance: WD/WN, no acute distress HEENT: normocephalic, atraumatic, anicteric, mucous membranes moist, PERRL Respiratory/Chest: chest wall non-tender, no respiratory distress, no accessory muscle use, decreased breath sounds, crackles/rales Cardiovascular: normal peripheral pulses, normal rate, regular rhythm, no gallop/murmur, no JVD Abdomen: normal bowel sounds, soft, non tender, no organomegaly, non distended, no mass, no scars Genitourinary: normal external genitalia Extremities: no cyanosis, no clubbing Skin: no rash, no lesions, no ulcers 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, 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, responsive Lymphatic: no neck adenopathy, no groin adenopathy Musculoskeletal: normal muscle bulk, no effusion Microbiology Date/Time Source Procedure Growth Status 03/12/20 18:25 Nasal Nares - Final Complete 03/12/20 18:25 Nasal Nares - Final Complete 03/12/20 18:25 Nasopharynx SARS-CoV-2 RdRp Gene Assay - Final Complete 03/12/20 18:25 Blood Blood Culture - Preliminary NO GROWTH AFTER 24 HOURS Resulted 03/12/20 18:10 Blood Blood Culture - Preliminary NO GROWTH AFTER 24 HOURS Resulted Laboratory Tests Test 03/14/20 04:00 White Blood Count 4.3 K/UL (4.8-10.8) #L Red Blood Count 4.53 M/UL (4.20-5.40) Hemoglobin 14.6 G/DL (12.0-16.0) Hematocrit 43.7 % (37.0-47.0) Mean Corpuscular Volume 97 FL (80-99) Mean Corpuscular Hemoglobin 32.3 PG (27.0-31.0) H Mean Corpuscular Hemoglobin Concent 33.4 G/DL (32.0-36.0) Red Cell Distribution Width 12.9 % (11.6-14.8) Platelet Count 108 K/UL (150-450) L Mean Platelet Volume 8.3 FL (6.5-10.1) Neutrophils (%) (Auto) 81.8 % (45.0-75.0) H Lymphocytes (%) (Auto) 12.6 % (20.0-45.0) L Monocytes (%) (Auto) 5.3 % (1.0-10.0) Eosinophils (%) (Auto) 0.1 % (0.0-3.0) Basophils (%) (Auto) 0.2 % (0.0-2.0) Sodium Level 138 MMOL/L (136-145) Potassium Level 4.1 MMOL/L (3.5-5.1) Chloride Level 106 MMOL/L (98-107) Carbon Dioxide Level 23 MMOL/L (21-32) Anion Gap 9 mmol/L (5-15) Blood Urea Nitrogen 29 mg/dL (7-18) H Creatinine 0.8 MG/DL (0.55-1.30) Estimat Glomerular Filtration Rate > 60 mL/min (>60) Glucose Level 116 MG/DL (74-106) H Calcium Level 7.9 MG/DL (8.5-10.1) L Total Bilirubin 0.3 MG/DL (0.2-1.0) Direct Bilirubin < 0.1 MG/DL (0.0-0.3) Aspartate Amino Transf (AST/SGOT) 81 U/L (15-37) H Alanine Aminotransferase (ALT/SGPT) 46 U/L (12-78) Alkaline Phosphatase 51 U/L (46-116) Total Protein 6.4 G/DL (6.4-8.2) Albumin 2.7 G/DL (3.4-5.0) L Globulin 3.7 g/dL Albumin/Globulin Ratio 0.7 (1.0-2.7) L Hepatitis A IgM Antibody Pending Hepatitis B Surface Antigen Pending Hepatitis B Core IgM Antibody Pending Hepatitis C Antibody Pending Current Medications Medications (Trade) Dose Ordered Sig/Marcello Route PRN Reason Start Time Stop Time Status Last Admin Dose Admin Azithromycin 500 mg/Dextrose 275 ml @ 275 mls/hr Q24H IV 03/13/20 17:30 03/18/20 17:29 03/13/20 18:50 Ceftriaxone Sodium 1 gm/ Dextrose 55 ml @ 110 mls/hr Q24H IVPB 03/13/20 17:30 03/20/20 17:29 03/13/20 17:36 Dexamethasone Sodium Phosphate (Decadron 4mg/ml vial) 6 mg DAILY IVP 03/13/20 09:00 03/21/20 23:59 03/14/20 09:16 Famotidine (Pepcid) 20 mg DAILY ORAL 03/13/20 09:00 06/11/20 08:59 03/14/20 09:16 Lorazepam (Ativan 2mg/ml 1ml) 0.5 mg Q4H PRN IV For Anxiety 03/12/20 23:45 03/19/20 23:44 Ondansetron HCl (Zofran) 4 mg Q6H PRN IVP Nausea & Vomiting 03/12/20 23:45 04/11/20 23:44 Polyethylene Glycol (Miralax) 17 gm DAILYPRN PRN ORAL Constipation 03/12/20 23:45 04/11/20 23:44 Remdesivir 100 mg/ Sodium Chloride 250 ml @ 250 mls/hr Q24H IV 03/14/20 11:00 03/17/20 10:59 03/14/20 11:10 Sodium Chloride 1,000 ml @ 50 mls/hr Q20H IV 03/13/20 22:45 04/12/20 22:44 03/13/20 22:51 Zolpidem Tartrate (Ambien) 5 mg HSPRN PRN ORAL Insomnia 03/12/20 23:45 03/19/20 23:44 Juice Moreno M.D. Mar 14, 2020 14:39
[2020-03-14 16:00] VITALS: BP 123/72
--- NOTE | 2020-03-14 17:30 | Pulmonology Progress Note ---
Subjective ROS Limited/Unobtainable: Yes Interval Events: None new Allergies: Coded Allergies: No Known Allergies (Unverified , 03/12/20) Objective Last 24 Hour Vital Signs Date Time Temp Pulse Resp B/P (MAP) Pulse Ox O2 Delivery O2 Flow Rate FiO2 03/14/20 12:00 69 03/14/20 12:00 97.6 77 18 128/88 (101) 97 03/14/20 09:00 Nasal Cannula 3.0 03/14/20 08:00 59 03/14/20 08:00 98.4 71 18 118/83 (95) 100 03/14/20 04:00 96.9 54 18 125/68 (87) 100 03/14/20 04:00 43 03/14/20 00:00 97.6 74 18 124/76 (92) 95 03/14/20 00:00 74 03/13/20 22:41 Nasal Cannula 3.0 03/13/20 21:00 98.2 95 20 132/69 98 Nasal Cannula 3.0 03/13/20 19:27 98.8 68 20 137/61 97 Nasal Cannula 3.0 General Appearance: no acute distress HEENT: normocephalic Respiratory: chest wall non-tender, lungs clear Cardiovascular: normal peripheral pulses Abdomen: normal bowel sounds Extremities: no cyanosis Microbiology Date/Time Source Procedure Growth Status 03/12/20 18:25 Nasal Nares - Final Complete 03/12/20 18:25 Nasal Nares - Final Complete 03/12/20 18:25 Nasopharynx SARS-CoV-2 RdRp Gene Assay - Final Complete 03/12/20 18:25 Blood Blood Culture - Preliminary NO GROWTH AFTER 24 HOURS Resulted 03/12/20 18:10 Blood Blood Culture - Preliminary NO GROWTH AFTER 24 HOURS Resulted Laboratory Tests 03/14/20 04:00: White Blood Count 4.3#L, Red Blood Count 4.53, Hemoglobin 14.6, Hematocrit 43.7, Mean Corpuscular Volume 97, Mean Corpuscular Hemoglobin 32.3H, Mean Corpuscular Hemoglobin Concent 33.4, Red Cell Distribution Width 12.9, Platelet Count 108L, Mean Platelet Volume 8.3, Neutrophils (%) (Auto) 81.8H, Lymphocytes (%) (Auto) 12.6L, Monocytes (%) (Auto) 5.3, Eosinophils (%) (Auto) 0.1, Basophils (%) (Auto) 0.2, Sodium Level 138, Potassium Level 4.1, Chloride Level 106, Carbon Dioxide Level 23, Anion Gap 9, Blood Urea Nitrogen 29H, Creatinine 0.8, Estimat Glomerular Filtration Rate > 60, Glucose Level 116H, Calcium Level 7.9L, Total Bilirubin 0.3, Direct Bilirubin < 0.1, Aspartate Amino Transf (AST/SGOT) 81H, Alanine Aminotransferase (ALT/SGPT) 46, Alkaline Phosphatase 51, Total Protein 6.4, Albumin 2.7L, Globulin 3.7, Albumin/Globulin Ratio 0.7L, Hepatitis A IgM Antibody [Pending], Hepatitis B Surface Antigen [Pending], Hepatitis B Core IgM Antibody [Pending], Hepatitis C Antibody [Pending], HIV (1&2) Antibody Rapid Negative Current Medications Medications (Trade) Dose Ordered Sig/Marcello Route PRN Reason Start Time Stop Time Status Last Admin Dose Admin Azithromycin 500 mg/Dextrose 275 ml @ 275 mls/hr Q24H IV 03/13/20 17:30 03/18/20 17:29 03/13/20 18:50 Ceftriaxone Sodium 1 gm/ Dextrose 55 ml @ 110 mls/hr Q24H IVPB 03/13/20 17:30 03/20/20 17:29 03/13/20 17:36 Dexamethasone Sodium Phosphate (Decadron 4mg/ml vial) 6 mg DAILY IVP 03/13/20 09:00 03/21/20 23:59 03/14/20 09:16 Famotidine (Pepcid) 20 mg DAILY ORAL 03/13/20 09:00 06/11/20 08:59 03/14/20 09:16 Lorazepam (Ativan 2mg/ml 1ml) 0.5 mg Q4H PRN IV For Anxiety 03/12/20 23:45 03/19/20 23:44 Ondansetron HCl (Zofran) 4 mg Q6H PRN IVP Nausea & Vomiting 03/12/20 23:45 04/11/20 23:44 Polyethylene Glycol (Miralax) 17 gm DAILYPRN PRN ORAL Constipation 03/12/20 23:45 04/11/20 23:44 Remdesivir 100 mg/ Sodium Chloride 250 ml @ 250 mls/hr Q24H IV 03/14/20 11:00 03/17/20 10:59 03/14/20 11:10 Sodium Chloride 1,000 ml @ 50 mls/hr Q20H IV 03/13/20 22:45 04/12/20 22:44 03/13/20 22:51 Zolpidem Tartrate (Ambien) 5 mg HSPRN PRN ORAL Insomnia 03/12/20 23:45 03/19/20 23:44 Assessment/Plan Assessment/Plan IMPRESSION: 1. COVID-19 pneumonia with hypoxia. - On remdesivir and Decadron per ID - continue ceftriaxone and azithromycin - Currently saturating well on low-flow oxygen. - Continue supplemental oxygen. 2. Leukopenia. 3. Elevated D-dimer. 4. Respiratory alkalosis. Agustín Marin MD Mar 14, 2020 17:30
[2020-03-14] MEDS: Azithromycin 500 MG in D5W 275 ML IV SCH (17:39)
--- NOTE | 2020-03-14 18:29 | Diagnostic Imaging Report ---
Indication: Abdominal pain Technique: Pillai-scale and duplex images of the upper abdomen were obtained Comparison: none Findings: Gallbladder is unremarkable, without stones, wall thickening, nor pericholecystic fluid. Sonographic Cruz's sign is negative. Common bile duct measures 6 mm in diameter. No intrahepatic biliary ductal dilatation. Liver demonstrates diffusely increased echogenicity, consistent with diffuse hepatocellular disease, most likely fatty change. Portal vein and hepatic veins are patent. Pancreas is unremarkable except for slight ectasia of the main pancreatic duct. Spleen is unremarkable. Left kidney measures 8.7 cm in length. Right kidney measures 8.4 cm length. Both kidneys demonstrate normal echogenicity. There is no hydronephrosis. Right kidney demonstrates a parapelvic cyst. Left kidney demonstrates a small cortical cyst . Non-aneurysmal abdominal aorta . 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 Nonspecific mild ectasia of the pancreatic duct Incidental finding bilateral renal cysts
--- NOTE | 2020-03-14 18:32 | Diagnostic Imaging Report ---
Indication: Bilateral leg pain Technique: Grayscale and duplex images of the bilateral lower extremity veins Comparison: None Findings: Bilaterally, grayscale and duplex images demonstrate no evidence of intraluminal thrombus. Normal phasic Doppler waveforms, demonstrating normal augmentation response and no evidence of valvular insufficiency. Greater saphenous vein(s) and tibial veins are patent. Normal compressibility. Impression: Negative for evidence of lower extremity deep venous thrombosis bilaterally
[2020-03-14] MEDS: cefTRIAXone 1 GM in D5W 55 ML IVPB SCH (18:38)
--- NOTE | 2020-03-14 19:05 | Consultation ---
History of Present Illness General Chief Complaint: Flu Like Symptoms Referring physician: Dr. Bruce Reason for Consultation: Bradycardia, CHF Present Illness HPI 84-year-old French female with history of hypertension, admitted through the ER with respiratory distress, myalgias, fever, and shortness of breath. Patient reported 1-day history of diffuse aches and pains in her joints and muscles, fatigue, decreased appetite, nonproductive cough, and fever. Found to be COVID-19 positive, her is currently hospitalized with COVID-19 pneumonia at [facility]. No prior CA or PCI. Pt has been bradycardic. Chest x-ray showed bilateral lung opacities. Allergies: Coded Allergies: No Known Allergies (Unverified , 03/12/20) Patient History Limited by: language barrier History Provided By: Patient, Medical Record Healthcare decision maker Resuscitation status Advanced Directive on File Review of Systems Constitutional: Reports: weakness Eye: Reports: no symptoms Respiratory: Reports: shortness of breath Cardiovascular: Reports: no symptoms Skin: Reports: no symptoms All Other Systems: negative except mentioned in HPI Physical Exam Last 24 Hour Vital Signs Date Time Temp Pulse Resp B/P (MAP) Pulse Ox O2 Delivery O2 Flow Rate FiO2 03/14/20 16:00 64 03/14/20 16:00 97.2 54 18 123/72 (89) 100 03/14/20 12:00 69 03/14/20 12:00 97.6 77 18 128/88 (101) 97 03/14/20 09:00 Nasal Cannula 3.0 03/14/20 08:00 59 03/14/20 08:00 98.4 71 18 118/83 (95) 100 03/14/20 04:00 96.9 54 18 125/68 (87) 100 03/14/20 04:00 43 03/14/20 00:00 97.6 74 18 124/76 (92) 95 03/14/20 00:00 74 03/13/20 22:41 Nasal Cannula 3.0 03/13/20 21:00 98.2 95 20 132/69 98 Nasal Cannula 3.0 03/13/20 19:27 98.8 68 20 137/61 97 Nasal Cannula 3.0 Laboratory Tests Test 03/14/20 04:00 White Blood Count 4.3 K/UL (4.8-10.8) #L Red Blood Count 4.53 M/UL (4.20-5.40) Hemoglobin 14.6 G/DL (12.0-16.0) Hematocrit 43.7 % (37.0-47.0) Mean Corpuscular Volume 97 FL (80-99) Mean Corpuscular Hemoglobin 32.3 PG (27.0-31.0) H Mean Corpuscular Hemoglobin Concent 33.4 G/DL (32.0-36.0) Red Cell Distribution Width 12.9 % (11.6-14.8) Platelet Count 108 K/UL (150-450) L Mean Platelet Volume 8.3 FL (6.5-10.1) Neutrophils (%) (Auto) 81.8 % (45.0-75.0) H Lymphocytes (%) (Auto) 12.6 % (20.0-45.0) L Monocytes (%) (Auto) 5.3 % (1.0-10.0) Eosinophils (%) (Auto) 0.1 % (0.0-3.0) Basophils (%) (Auto) 0.2 % (0.0-2.0) Sodium Level 138 MMOL/L (136-145) Potassium Level 4.1 MMOL/L (3.5-5.1) Chloride Level 106 MMOL/L (98-107) Carbon Dioxide Level 23 MMOL/L (21-32) Anion Gap 9 mmol/L (5-15) Blood Urea Nitrogen 29 mg/dL (7-18) H Creatinine 0.8 MG/DL (0.55-1.30) Estimat Glomerular Filtration Rate > 60 mL/min (>60) Glucose Level 116 MG/DL (74-106) H Calcium Level 7.9 MG/DL (8.5-10.1) L Total Bilirubin 0.3 MG/DL (0.2-1.0) Direct Bilirubin < 0.1 MG/DL (0.0-0.3) Aspartate Amino Transf (AST/SGOT) 81 U/L (15-37) H Alanine Aminotransferase (ALT/SGPT) 46 U/L (12-78) Alkaline Phosphatase 51 U/L (46-116) Total Protein 6.4 G/DL (6.4-8.2) Albumin 2.7 G/DL (3.4-5.0) L Globulin 3.7 g/dL Albumin/Globulin Ratio 0.7 (1.0-2.7) L Hepatitis A IgM Antibody Pending Hepatitis B Surface Antigen Pending Hepatitis B Core IgM Antibody Pending Hepatitis C Antibody Pending HIV (1&2) Antibody Rapid Negative (NEGATIVE) Height (Feet): 5 Height (Inches): 0.00 Weight (Pounds): 105 Medications Current Medications Medications (Trade) Dose Ordered Sig/Marcello Route PRN Reason Start Time Stop Time Status Last Admin Dose Admin Azithromycin 500 mg/Dextrose 275 ml @ 275 mls/hr Q24H IV 03/13/20 17:30 03/18/20 17:29 03/14/20 17:39 Ceftriaxone Sodium 1 gm/ Dextrose 55 ml @ 110 mls/hr Q24H IVPB 03/13/20 17:30 03/20/20 17:29 03/14/20 18:38 Dexamethasone Sodium Phosphate (Decadron 4mg/ml vial) 6 mg DAILY IVP 03/13/20 09:00 03/21/20 23:59 03/14/20 09:16 Famotidine (Pepcid) 20 mg DAILY ORAL 03/13/20 09:00 06/11/20 08:59 03/14/20 09:16 Lorazepam (Ativan 2mg/ml 1ml) 0.5 mg Q4H PRN IV For Anxiety 03/12/20 23:45 03/19/20 23:44 Ondansetron HCl (Zofran) 4 mg Q6H PRN IVP Nausea & Vomiting 03/12/20 23:45 04/11/20 23:44 Polyethylene Glycol (Miralax) 17 gm DAILYPRN PRN ORAL Constipation 03/12/20 23:45 04/11/20 23:44 Remdesivir 100 mg/ Sodium Chloride 250 ml @ 250 mls/hr Q24H IV 03/14/20 11:00 03/17/20 10:59 03/14/20 11:10 Sodium Chloride 1,000 ml @ 50 mls/hr Q20H IV 03/13/20 22:45 04/12/20 22:44 03/14/20 18:39 Zolpidem Tartrate (Ambien) 5 mg HSPRN PRN ORAL Insomnia 03/12/20 23:45 03/19/20 23:44 Assessment/Plan Assessment/Plan: 1. COVID-19 viral PNA antiviral tx per ID 2. Respiratory failure, on supplemental O2 3. HTN 4. Bradycardia Bradycardic with rate in low 50's, hold Bb or Ca channel raj. SBP in normal territory. Echo pending. Further recs to follow. Radha Guzman PA-C Mar 14, 2020 19:05
[2020-03-14 20:00] VITALS: BP 119/72
[2020-03-15] VITALS: BP 103/63
[2020-03-15 04:00] VITALS: BP 114/54
[2020-03-15 05:21] LABS: HEMOGLOBIN 14.5 G/DL (12.0-16.0); MEAN CORPUSCULAR VOLUME 94 FL (80-99); PLATELET COUNT 144 K/UL (150-450); RED BLOOD COUNT 4.46 M/UL (4.20-5.40); RED CELL DISTRIBUTION WIDTH 12.8 % (11.6-14.8); WHITE BLOOD COUNT 2.5 K/UL (4.8-10.8)
[2020-03-15 06:06] LABS: ALANINE AMINOTRANSFERASE 48 U/L (12-78); ALBUMIN 2.7 G/DL (3.4-5.0); ALBUMIN/GLOBULIN RATIO 0.7 (1.0-2.7); ALKALINE PHOSPHATASE 51 U/L (46-116); ANION GAP 8 mmol/L (5-15); ASPARTATE AMINO TRANSFERASE 66 U/L (15-37); BILIRUBIN,DIRECT < 0.1 MG/DL (0.0-0.3); BILIRUBIN,TOTAL 0.4 MG/DL (0.2-1.0); BLOOD UREA NITROGEN 26 mg/dL (7-18); CALCIUM 7.7 MG/DL (8.5-10.1); CARBON DIOXIDE 24 MMOL/L (21-32); CHLORIDE 108 MMOL/L (98-107); CREATININE 0.9 MG/DL (0.55-1.30); POTASSIUM 3.9 MMOL/L (3.5-5.1); SODIUM 140 MMOL/L (136-145)
--- NOTE | 2020-03-15 06:31 | Consultation ---
History of Present Illness General Chief Complaint: Flu Like Symptoms Referring physician: Dr. Bruce Reason for Consultation: Bradycardia, CHF Present Illness Allergies: Coded Allergies: No Known Allergies (Unverified , 03/12/20) Patient History Healthcare decision maker Resuscitation status Advanced Directive on File Physical Exam Last 24 Hour Vital Signs Date Time Temp Pulse Resp B/P (MAP) Pulse Ox O2 Delivery O2 Flow Rate FiO2 03/15/20 00:00 57 03/15/20 00:00 64 03/15/20 00:00 97.1 59 19 103/63 (76) 100 03/14/20 21:00 Nasal Cannula 3.0 03/14/20 20:13 98 Nasal Cannula 3.0 32 03/14/20 20:00 97.3 64 18 119/72 (88) 100 03/14/20 20:00 64 03/14/20 16:00 64 03/14/20 16:00 97.2 54 18 123/72 (89) 100 03/14/20 12:00 69 03/14/20 12:00 97.6 77 18 128/88 (101) 97 03/14/20 09:00 Nasal Cannula 3.0 03/14/20 08:00 59 03/14/20 08:00 98.4 71 18 118/83 (95) 100 Intake and Output 03/14/20 03/15/20 18:59 06:59 Intake Total 800 ml 50 ml Balance 800 ml 50 ml Intake Oral 150 ml IV Total 650 ml 50 ml # Voids 3 Laboratory Tests Test 03/15/20 04:00 White Blood Count 2.5 K/UL (4.8-10.8) L Red Blood Count 4.46 M/UL (4.20-5.40) Hemoglobin 14.5 G/DL (12.0-16.0) Hematocrit 42.0 % (37.0-47.0) Mean Corpuscular Volume 94 FL (80-99) Mean Corpuscular Hemoglobin 32.6 PG (27.0-31.0) H Mean Corpuscular Hemoglobin Concent 34.6 G/DL (32.0-36.0) Red Cell Distribution Width 12.8 % (11.6-14.8) Platelet Count 144 K/UL (150-450) L Mean Platelet Volume 9.3 FL (6.5-10.1) Neutrophils (%) (Auto) % (45.0-75.0) Lymphocytes (%) (Auto) % (20.0-45.0) Monocytes (%) (Auto) % (1.0-10.0) Eosinophils (%) (Auto) % (0.0-3.0) Basophils (%) (Auto) % (0.0-2.0) Neutrophils % (Manual) Pending Lymphocytes % (Manual) Pending Platelet Estimate Pending Platelet Morphology Pending Sodium Level 140 MMOL/L (136-145) Potassium Level 3.9 MMOL/L (3.5-5.1) Chloride Level 108 MMOL/L (98-107) H Carbon Dioxide Level 24 MMOL/L (21-32) Anion Gap 8 mmol/L (5-15) Blood Urea Nitrogen 26 mg/dL (7-18) H Creatinine 0.9 MG/DL (0.55-1.30) Estimat Glomerular Filtration Rate 59.7 mL/min (>60) Glucose Level 111 MG/DL (74-106) H Calcium Level 7.7 MG/DL (8.5-10.1) L Total Bilirubin 0.4 MG/DL (0.2-1.0) Direct Bilirubin < 0.1 MG/DL (0.0-0.3) Aspartate Amino Transf (AST/SGOT) 66 U/L (15-37) H Alanine Aminotransferase (ALT/SGPT) 48 U/L (12-78) Alkaline Phosphatase 51 U/L (46-116) Total Protein 6.4 G/DL (6.4-8.2) Albumin 2.7 G/DL (3.4-5.0) L Globulin 3.7 g/dL Albumin/Globulin Ratio 0.7 (1.0-2.7) L Height (Feet): 5 Height (Inches): 0.00 Weight (Pounds): 105 Medications Current Medications Medications (Trade) Dose Ordered Sig/Marcello Route PRN Reason Start Time Stop Time Status Last Admin Dose Admin Azithromycin 500 mg/Dextrose 275 ml @ 275 mls/hr Q24H IV 03/13/20 17:30 03/18/20 17:29 03/14/20 17:39 Ceftriaxone Sodium 1 gm/ Dextrose 55 ml @ 110 mls/hr Q24H IVPB 03/13/20 17:30 03/20/20 17:29 03/14/20 18:38 Dexamethasone Sodium Phosphate (Decadron 4mg/ml vial) 6 mg DAILY IVP 03/13/20 09:00 03/21/20 23:59 03/14/20 09:16 Famotidine (Pepcid) 20 mg DAILY ORAL 03/13/20 09:00 06/11/20 08:59 03/14/20 09:16 Lorazepam (Ativan 2mg/ml 1ml) 0.5 mg Q4H PRN IV For Anxiety 03/12/20 23:45 03/19/20 23:44 Ondansetron HCl (Zofran) 4 mg Q6H PRN IVP Nausea & Vomiting 03/12/20 23:45 04/11/20 23:44 Polyethylene Glycol (Miralax) 17 gm DAILYPRN PRN ORAL Constipation 03/12/20 23:45 04/11/20 23:44 Remdesivir 100 mg/ Sodium Chloride 250 ml @ 250 mls/hr Q24H IV 03/14/20 11:00 03/17/20 10:59 03/14/20 11:10 Sodium Chloride 1,000 ml @ 50 mls/hr Q20H IV 03/13/20 22:45 04/12/20 22:44 03/14/20 18:39 Zolpidem Tartrate (Ambien) 5 mg HSPRN PRN ORAL Insomnia 03/12/20 23:45 03/19/20 23:44 Assessment/Plan Assessment/Plan: Hematology consultation STEFANO MD: Oral Bruce DOS: 03/15/2020 RFC: Leukopenia, anemia. HPI 84-year-old Yak[place] female with history of hypertension, admitted through the ER with respiratory distress, myalgias, fever, and shortness of breath. Patient reported 1-day history of diffuse aches and pains in her joints and muscles, fatigue, decreased appetite, nonproductive cough, and fever. Found to be COVID- 19 positive, her is currently hospitalized with COVID-19 pneumonia at [facility]. No prior [place] or PCI. Pt has been bradycardic. Chest x-ray showed bilateral lung opacities. Counts are low and heme consulted. Coded Allergies: No Known Allergies (Unverified , 03/12/20) Patient History Limited by: language barrier History Provided By: Patient, Medical Record Healthcare decision maker PMH: Hypertension PSH: Reviewed Allergies: NKDA Social Hx: Reviewed Allergies: Coded Allergies: No Known Allergies (Unverified , 03/12/20) COVID-19 Screening Contact w/high risk pt: No Experienced COVID-19 symptoms?: Yes COVID-19 Testing performed [employer]OR PNEUMATIC: Yes COVID-19 Screening: Negative COVID-19 COVID-19 Testing Source: 3 days ago Nursing Documentation-PMH Past Medical History: No History, Except For Hx Hypertension: Yes Review of Systems Constitutional: Reports: weakness Eye: Reports: no symptoms Respiratory: Reports: shortness of breath Cardiovascular: Reports: no symptoms Skin: Reports: no symptoms All Other Systems: negative except mentioned in HPI Physical Exam Gen: Nad Pulm: ctab, no cwr CV: rrr, no mgr Abd: soft, nt, nd Ext: no cce Labs: Ua Urinalysis shows 3+ protein, 3+ ketones, 5+ blood. Imaging: reviewed IMPRESSION: 1. Thrombocytopenia is very likely related to COVID-19 pneumonia++++++. --> On remdesivir and Decadron per Dr. Moreno. --> On ceftriaxone and azithromycin per Dr. Bruce. --> Currently saturating well on low-flow oxygen. --> per pulm and id recs --> hep and hiv is neg --> us abd shows fatty liver disease] 2. Leukopenia. --> smear is noted 3. Elevated D-dimer. --> duplex lower legs neg 4. Respiratory alkalosis. --> per pulm 5. Dvt ppx lovenox sq Appreciate consultation and Omar Hoskins RN, MD Mar 15, 2020 06:31
[2020-03-15 08:00] VITALS: BP 115/69
[2020-03-15] MEDS: Enoxaparin 30mg Inj SUBQ SCH (09:00)
--- NOTE | 2020-03-15 10:56 | Pulmonology Progress Note ---
Subjective ROS Limited/Unobtainable: Yes Interval Events: None new Constitutional: Reports: no symptoms HEENT: Repors: no symptoms Respiratory: Reports: no symptoms Cardiovascular: Reports: no symptoms Gastrointestinal/Abdominal: Reports: no symptoms Allergies: Coded Allergies: No Known Allergies (Unverified , 03/12/20) Objective Last 24 Hour Vital Signs Date Time Temp Pulse Resp B/P (MAP) Pulse Ox O2 Delivery O2 Flow Rate FiO2 03/15/20 09:33 97 Nasal Cannula 3.0 32 03/15/20 08:00 98.6 68 20 115/69 (84) 95 03/15/20 04:00 97.1 58 19 114/54 (74) 97 03/15/20 04:00 51 03/15/20 00:00 57 03/15/20 00:00 64 03/15/20 00:00 97.1 59 19 103/63 (76) 100 03/14/20 21:00 Nasal Cannula 3.0 03/14/20 20:13 98 Nasal Cannula 3.0 32 03/14/20 20:00 97.3 64 18 119/72 (88) 100 03/14/20 20:00 64 03/14/20 16:00 64 03/14/20 16:00 97.2 54 18 123/72 (89) 100 03/14/20 12:00 69 03/14/20 12:00 97.6 77 18 128/88 (101) 97 Intake and Output 03/14/20 03/15/20 19:00 07:00 Intake Total 800 ml Balance 800 ml Intake Oral 150 ml IV Total 650 ml # Voids 3 3 Objective 03/15 PT eval at the time of exam General Appearance: no acute distress HEENT: normocephalic Respiratory: chest wall non-tender, lungs clear Cardiovascular: normal peripheral pulses Abdomen: normal bowel sounds Extremities: no cyanosis Microbiology Date/Time Source Procedure Growth Status 03/12/20 18:25 Nasal Nares - Final Complete 03/12/20 18:25 Nasal Nares - Final Complete 03/12/20 18:25 Nasopharynx SARS-CoV-2 RdRp Gene Assay - Final Complete 03/12/20 18:25 Blood Blood Culture - Preliminary NO GROWTH AFTER 48 HOURS Resulted 03/12/20 18:10 Blood Blood Culture - Preliminary NO GROWTH AFTER 48 HOURS Resulted Laboratory Tests 03/15/20 04:00: White Blood Count 2.5L, Red Blood Count 4.46, Hemoglobin 14.5, Hematocrit 42.0, Mean Corpuscular Volume 94, Mean Corpuscular Hemoglobin 32.6H, Mean Corpuscular Hemoglobin Concent 34.6, Red Cell Distribution Width 12.8, Platelet Count 144L, Mean Platelet Volume 9.3, Neutrophils (%) (Auto) , Lymphocytes (%) (Auto) , Monocytes (%) (Auto) , Eosinophils (%) (Auto) , Basophils (%) (Auto) , Differential Total Cells Counted 100, Neutrophils % (Manual) 69, Lymphocytes % (Manual) 25, Monocytes % (Manual) 6, Eosinophils % (Manual) 0, Basophils % (Manual) 0, Band Neutrophils 0, Platelet Estimate DecreasedL, Platelet Morphology Normal, Red Blood Cell Morphology Normal, Sodium Level 140, Potassium Level 3.9, Chloride Level 108H, Carbon Dioxide Level 24, Anion Gap 8, Blood Urea Nitrogen 26H, Creatinine 0.9, Estimat Glomerular Filtration Rate 59.7, Glucose Level 111H, Calcium Level 7.7L, Total Bilirubin 0.4, Direct Bilirubin < 0.1, Aspartate Amino Transf (AST/SGOT) 66H, Alanine Aminotransferase (ALT/SGPT) 48, Alkaline Phosphatase 51, Total Protein 6.4, Albumin 2.7L, Globulin 3.7, Albumin/Globulin Ratio 0.7L Current Medications Medications (Trade) Dose Ordered Sig/Marcello Route PRN Reason Start Time Stop Time Status Last Admin Dose Admin Azithromycin 500 mg/Dextrose 275 ml @ 275 mls/hr Q24H IV 03/13/20 17:30 03/18/20 17:29 03/14/20 17:39 Ceftriaxone Sodium 1 gm/ Dextrose 55 ml @ 110 mls/hr Q24H IVPB 03/13/20 17:30 03/20/20 17:29 03/14/20 18:38 Dexamethasone Sodium Phosphate (Decadron 4mg/ml vial) 6 mg DAILY IVP 03/13/20 09:00 03/21/20 23:59 03/15/20 09:45 Enoxaparin Sodium (Lovenox) 30 mg DAILY SUBQ 03/15/20 09:00 06/13/20 08:59 Famotidine (Pepcid) 20 mg DAILY ORAL 03/13/20 09:00 06/11/20 08:59 03/15/20 09:45 Lorazepam (Ativan 2mg/ml 1ml) 0.5 mg Q4H PRN IV For Anxiety 03/12/20 23:45 03/19/20 23:44 Ondansetron HCl (Zofran) 4 mg Q6H PRN IVP Nausea & Vomiting 03/12/20 23:45 04/11/20 23:44 Polyethylene Glycol (Miralax) 17 gm DAILYPRN PRN ORAL Constipation 03/12/20 23:45 04/11/20 23:44 Remdesivir 100 mg/ Sodium Chloride 250 ml @ 250 mls/hr Q24H IV 03/14/20 11:00 03/17/20 10:59 03/14/20 11:10 Sodium Chloride 1,000 ml @ 50 mls/hr Q20H IV 03/13/20 22:45 04/12/20 22:44 03/14/20 18:39 Zolpidem Tartrate (Ambien) 5 mg HSPRN PRN ORAL Insomnia 03/12/20 23:45 03/19/20 23:44 Assessment/Plan Assessment/Plan 1. COVID-19 pneumonia with hypoxia. - On remdesivir and Decadron per ID - continue ceftriaxone and azithromycin - Currently saturating well on low-flow oxygen. (3L/min) - Continue supplemental oxygen. 2. Leukopenia. 3. Elevated D-dimer. - venous duplex US LE- neg - on Lovenox 4. Respiratory alkalosis. - monitor ABG The care of this patient was discussed with my supervising physician Time spent for this encounter was approximately 31 minutes Tan Garcia Mar 15, 2020 10:56 Agustín Marin MD Mar 15, 2020 15:06
[2020-03-15] MEDS ORDERED: Maintenance Dose:Remdesivir 100mg/NS 230ml x 4 Doses IV SCH ×2 (11:00)
[2020-03-15] MEDS: Maintenance Dose:Remdesivir 100mg/NS 230ml x 4 Doses IV SCH ×2 (11:00)
--- NOTE | 2020-03-15 11:03 | General Progress Note ---
Subjective Allergies: Coded Allergies: No Known Allergies (Unverified , 03/12/20) Objective Last 24 Hour Vital Signs Date Time Temp Pulse Resp B/P (MAP) Pulse Ox O2 Delivery O2 Flow Rate FiO2 03/15/20 09:33 97 Nasal Cannula 3.0 32 03/15/20 08:00 98.6 68 20 115/69 (84) 95 03/15/20 04:00 97.1 58 19 114/54 (74) 97 03/15/20 04:00 51 03/15/20 00:00 57 03/15/20 00:00 64 03/15/20 00:00 97.1 59 19 103/63 (76) 100 03/14/20 21:00 Nasal Cannula 3.0 03/14/20 20:13 98 Nasal Cannula 3.0 32 03/14/20 20:00 97.3 64 18 119/72 (88) 100 03/14/20 20:00 64 03/14/20 16:00 64 03/14/20 16:00 97.2 54 18 123/72 (89) 100 03/14/20 12:00 69 03/14/20 12:00 97.6 77 18 128/88 (101) 97 Intake and Output 0 03/14/20 03/15/20 19:00 07:00 Intake Total 800 ml Balance 800 ml Intake Oral 150 ml IV Total 650 ml # Voids 3 3 Laboratory Tests 03/15/20 04:00: White Blood Count 2.5L, Red Blood Count 4.46, Hemoglobin 14.5, Hematocrit 42.0, Mean Corpuscular Volume 94, Mean Corpuscular Hemoglobin 32.6H, Mean Corpuscular Hemoglobin Concent 34.6, Red Cell Distribution Width 12.8, Platelet Count 144L, Mean Platelet Volume 9.3, Neutrophils (%) (Auto) , Lymphocytes (%) (Auto) , Monocytes (%) (Auto) , Eosinophils (%) (Auto) , Basophils (%) (Auto) , Diffe rential Total Cells Counted 100, Neutrophils % (Manual) 69, Lymphocytes % (Manual) 25, Monocytes % (Manual) 6, Eosinophils % (Manual) 0, Basophils % (Manual) 0, Band Neutrophils 0, Platelet Estimate DecreasedL, Platelet Morphology Normal, Red Blood Cell Morphology Normal, Sodium Level 140, Potassium Level 3.9, Chloride Level 108H, Carbon Dioxide Level 24, Anion Gap 8, Blood Urea Nitrogen 26H, Creatinine 0.9, Estimat Glomerular Filtration Rate 59.7, Glucose Level 111H, Calcium Level 7.7L, Total Bilirubin 0.4, Direct Bilirubin < 0.1, Aspartate Amino Transf (AST/SGOT) 66H, Alanine Aminotransferase (ALT/SGPT) 48, Alkaline Phosphatase 51, Total Protein 6.4, Albumin 2.7L, Globulin 3.7, Albumin/Globulin Ratio 0.7L Height (Feet): 5 Height (Inches): 0.00 Weight (Pounds): 105 Assessment/Plan Assessment/Plan: S, O: seems comfortable, PHYSICAL EXAMINATION:HEAD AND NECK: Atraumatic and normocephalic. CHEST: Diffuse bronchial breathing sounds. HEART: S1, S2. Regular rate and rhythm. ABDOMEN: Soft. No organomegaly. MUSCULOSKELETAL: No gross lateralized motor deficit. NEUROLOGY: Patient is awake, alert, oriented x3. Meds: reviewed and reconciled ASSESSMENT AND PLAN: 1. COVID positive pneumonia. 2. Acute renal failure. 3. Leukopenia. 4. Thrombocytopenia. 5. Abnormal LFT. 6. Abnormal troponin levels. 7. GI and DVT prophylaxes. PLAN OF CARE: Current management. interval improvement in wbc counts Notes from [facility] Alison Lyle MD Mar 15, 2020 11:03
[2020-03-15 12:00] VITALS: BP 118/77
[2020-03-15 16:00] VITALS: BP 120/67
--- NOTE | 2020-03-15 16:19 | Infectious Diseases Prog Note ---
Assessment/Plan Problems: (1) Suspected COVID-19 virus infection Assessment & Plan: With positive rapid test and high inflammatory markers , await PCR test to confirm, continue Remdisvir iv for 5 days and decadrone for 10 days , keep in enhanced droplets isolation . monitor inflammatory markers (2) Exposure to COVID-19 virus Assessment & Plan: most likely from her , keep in isolation, monitor PCR test to confirm , highly likely infected with COVID 19 (3) Pneumonia due to COVID-19 virus Assessment & Plan: continue Remdisvir with decadron , droplets isolation, aspiration precaution , sputum culture if she produces any (4) Acute respiratory failure due to COVID-19 Assessment & Plan: with hypoxemia , sating 90% on room air , continue high flow oxygen , attempt prone position if needed , remdisvir with decadron for now . monitor CXR and ABG Subjective Constitutional: Reports: no symptoms HEENT: Reports: no symptoms Respiratory: Reports: no symptoms Breasts: Reports: no symptoms Cardiovascular: Reports: no symptoms Gastrointestinal/Abdominal: Reports: no symptoms Genitourinary: Reports: no symptoms Neurologic: Reports: no symptoms Psychiatric: Reports: no symptoms Skin: Reports: no symptoms Endocrine: Reports: no symptoms Hematologic: Reports: no symptoms Musculoskeletal: Reports: no symptoms Allergies: Coded Allergies: No Known Allergies (Unverified , 03/12/20) she is more awake and responsive, satting well on low flow oxygen, afebrile, no shortness of breath and no diarrhea Objective Last 24 Hour Vital Signs Date Time Temp Pulse Resp B/P (MAP) Pulse Ox O2 Delivery O2 Flow Rate FiO2 03/15/20 12:00 97.7 59 18 118/77 (91) 98 03/15/20 09:33 97 Nasal Cannula 3.0 32 03/15/20 09:00 Nasal Cannula 3.0 03/15/20 08:00 98.6 68 20 115/69 (84) 95 03/15/20 08:00 51 03/15/20 04:00 97.1 58 19 114/54 (74) 97 03/15/20 04:00 51 03/15/20 00:00 57 03/15/20 00:00 64 03/15/20 00:00 97.1 59 19 103/63 (76) 100 03/14/20 21:00 Nasal Cannula 3.0 03/14/20 20:13 98 Nasal Cannula 3.0 32 03/14/20 20:00 97.3 64 18 119/72 (88) 100 03/14/20 20:00 64 Height (Feet): 5 Height (Inches): 0.00 Weight (Pounds): 105 General Appearance: WD/WN, no acute distress HEENT: normocephalic, atraumatic, anicteric, mucous membranes moist, PERRL Respiratory/Chest: chest wall non-tender, normal breath sounds, no respiratory distress, no accessory muscle use, decreased breath sounds Cardiovascular: normal peripheral pulses, normal rate, regular rhythm, no gallop/murmur, no JVD Abdomen: normal bowel sounds, soft, non tender, no organomegaly, non distended, no mass, no scars Genitourinary: normal external genitalia Extremities: no cyanosis, no clubbing Skin: no rash, no lesions, no ulcers 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, alert, responsive Lymphatic: no neck adenopathy, no groin adenopathy Musculoskeletal: normal muscle bulk, no effusion Microbiology Date/Time Source Procedure Growth Status 03/12/20 18:25 Nasal Nares - Final Complete 03/12/20 18:25 Nasal Nares - Final Complete 03/12/20 18:25 Nasopharynx SARS-CoV-2 RdRp Gene Assay - Final Complete 03/12/20 18:25 Blood Blood Culture - Preliminary NO GROWTH AFTER 48 HOURS Resulted 03/12/20 18:10 Blood Blood Culture - Preliminary NO GROWTH AFTER 48 HOURS Resulted Laboratory Tests Test 03/15/20 04:00 White Blood Count 2.5 K/UL (4.8-10.8) L Red Blood Count 4.46 M/UL (4.20-5.40) Hemoglobin 14.5 G/DL (12.0-16.0) Hematocrit 42.0 % (37.0-47.0) Mean Corpuscular Volume 94 FL (80-99) Mean Corpuscular Hemoglobin 32.6 PG (27.0-31.0) H Mean Corpuscular Hemoglobin Concent 34.6 G/DL (32.0-36.0) Red Cell Distribution Width 12.8 % (11.6-14.8) Platelet Count 144 K/UL (150-450) L Mean Platelet Volume 9.3 FL (6.5-10.1) Neutrophils (%) (Auto) % (45.0-75.0) Lymphocytes (%) (Auto) % (20.0-45.0) Monocytes (%) (Auto) % (1.0-10.0) Eosinophils (%) (Auto) % (0.0-3.0) Basophils (%) (Auto) % (0.0-2.0) Differential Total Cells Counted 100 Neutrophils % (Manual) 69 % (45-75) Lymphocytes % (Manual) 25 % (20-45) Monocytes % (Manual) 6 % (1-10) Eosinophils % (Manual) 0 % (0-3) Basophils % (Manual) 0 % (0-2) Band Neutrophils 0 % (0-8) Platelet Estimate Decreased L Platelet Morphology Normal Red Blood Cell Morphology Normal Sodium Level 140 MMOL/L (136-145) Potassium Level 3.9 MMOL/L (3.5-5.1) Chloride Level 108 MMOL/L (98-107) H Carbon Dioxide Level 24 MMOL/L (21-32) Anion Gap 8 mmol/L (5-15) Blood Urea Nitrogen 26 mg/dL (7-18) H Creatinine 0.9 MG/DL (0.55-1.30) Estimat Glomerular Filtration Rate 59.7 mL/min (>60) Glucose Level 111 MG/DL (74-106) H Calcium Level 7.7 MG/DL (8.5-10.1) L Total Bilirubin 0.4 MG/DL (0.2-1.0) Direct Bilirubin < 0.1 MG/DL (0.0-0.3) Aspartate Amino Transf (AST/SGOT) 66 U/L (15-37) H Alanine Aminotransferase (ALT/SGPT) 48 U/L (12-78) Alkaline Phosphatase 51 U/L (46-116) Total Protein 6.4 G/DL (6.4-8.2) Albumin 2.7 G/DL (3.4-5.0) L Globulin 3.7 g/dL Albumin/Globulin Ratio 0.7 (1.0-2.7) L Current Medications Medications (Trade) Dose Ordered Sig/Marcello Route PRN Reason Start Time Stop Time Status Last Admin Dose Admin Azithromycin 500 mg/Dextrose 275 ml @ 275 mls/hr Q24H IV 12/20/20 17:30 03/18/20 17:29 03/14/20 17:39 Ceftriaxone Sodium 1 gm/ Dextrose 55 ml @ 110 mls/hr Q24H IVPB 03/13/20 17:30 03/20/20 17:29 03/14/20 18:38 Dexamethasone Sodium Phosphate (Decadron 4mg/ml vial) 6 mg DAILY IVP 03/13/20 09:00 03/21/20 23:59 03/15/20 09:45 Enoxaparin Sodium (Lovenox) 30 mg DAILY SUBQ 03/15/20 09:00 06/13/20 08:59 Famotidine (Pepcid) 20 mg DAILY ORAL 03/13/20 09:00 06/11/20 08:59 03/15/20 09:45 Lorazepam (Ativan 2mg/ml 1ml) 0.5 mg Q4H PRN IV For Anxiety 03/12/20 23:45 03/19/20 23:44 Ondansetron HCl (Zofran) 4 mg Q6H PRN IVP Nausea & Vomiting 03/12/20 23:45 04/11/20 23:44 Polyethylene Glycol (Miralax) 17 gm DAILYPRN PRN ORAL Constipation 03/12/20 23:45 04/11/20 23:44 Remdesivir 100 mg/ Sodium Chloride 250 ml @ 250 mls/hr Q24H IV 03/14/20 11:00 03/17/20 10:59 03/15/20 11:00 Sodium Chloride 1,000 ml @ 50 mls/hr Q20H IV 03/13/20 22:45 04/12/20 22:44 03/15/20 15:04 Zolpidem Tartrate (Ambien) 5 mg HSPRN PRN ORAL Insomnia 03/12/20 23:45 03/19/20 23:44 Juice Moreno M.D. Mar 15, 2020 16:19
--- NOTE | 2020-03-15 17:21 | Cardiology Progress Note ---
Assessment/Plan Status: stable Status Narrative Assessment/Plan 1. COVID-19 viral PNA 2. SOB/ZAPIEN 3. HTN 4. Sinus bradycardia 5. CHF - echo pending 6. Troponin leak - 0.07 denies chest pain Tx for viral PNA per ID. Echo pending, repeat troponin. HR improved today. Subjective ROS Limited/Unobtainable: No Cardiovascular: Reports: no symptoms Respiratory: Reports: shortness of breath Gastrointestinal/Abdominal: Reports: poor appetite Genitourinary: Reports: no symptoms Subjective Flu like symptoms, resting comfortably Objective Last 24 Hour Vital Signs Date Time Temp Pulse Resp B/P (MAP) Pulse Ox O2 Delivery O2 Flow Rate FiO2 03/15/20 12:00 97.7 59 18 118/77 (91) 98 03/15/20 09:33 97 Nasal Cannula 3.0 32 03/15/20 09:00 Nasal Cannula 3.0 03/15/20 08:00 98.6 68 20 115/69 (84) 95 03/15/20 08:00 51 03/15/20 04:00 97.1 58 19 114/54 (74) 97 03/15/20 04:00 51 03/15/20 00:00 57 03/15/20 00:00 64 03/15/20 00:00 97.1 59 19 103/63 (76) 100 03/14/20 21:00 Nasal Cannula 3.0 03/14/20 20:13 98 Nasal Cannula 3.0 32 03/14/20 20:00 97.3 64 18 119/72 (88) 100 03/14/20 20:00 64 General Appearance: no apparent distress EENT: PERRL/EOMI Neck: no JVD 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 Intake and Output 03/14/20 03/15/20 19:00 07:00 Intake Total 800 ml Balance 800 ml Intake Oral 150 ml IV Total 650 ml # Voids 3 3 Laboratory Tests Test 03/15/20 04:00 White Blood Count 2.5 K/UL (4.8-10.8) L Red Blood Count 4.46 M/UL (4.20-5.40) Hemoglobin 14.5 G/DL (12.0-16.0) Hematocrit 42.0 % (37.0-47.0) Mean Corpuscular Volume 94 FL (80-99) Mean Corpuscular Hemoglobin 32.6 PG (27.0-31.0) H Mean Corpuscular Hemoglobin Concent 34.6 G/DL (32.0-36.0) Red Cell Distribution Width 12.8 % (11.6-14.8) Platelet Count 144 K/UL (150-450) L Mean Platelet Volume 9.3 FL (6.5-10.1) Neutrophils (%) (Auto) % (45.0-75.0) Lymphocytes (%) (Auto) % (20.0-45.0) Monocytes (%) (Auto) % (1.0-10.0) Eosinophils (%) (Auto) % (0.0-3.0) Basophils (%) (Auto) % (0.0-2.0) Differential Total Cells Counted 100 Neutrophils % (Manual) 69 % (45-75) Lymphocytes % (Manual) 25 % (20-45) Monocytes % (Manual) 6 % (1-10) Eosinophils % (Manual) 0 % (0-3) Basophils % (Manual) 0 % (0-2) Band Neutrophils 0 % (0-8) Platelet Estimate Decreased L Platelet Morphology Normal Red Blood Cell Morphology Normal Sodium Level 140 MMOL/L (136-145) Potassium Level 3.9 MMOL/L (3.5-5.1) Chloride Level 108 MMOL/L (98-107) H Carbon Dioxide Level 24 MMOL/L (21-32) Anion Gap 8 mmol/L (5-15) Blood Urea Nitrogen 26 mg/dL (7-18) H Creatinine 0.9 MG/DL (0.55-1.30) Estimat Glomerular Filtration Rate 59.7 mL/min (>60) Glucose Level 111 MG/DL (74-106) H Calcium Level 7.7 MG/DL (8.5-10.1) L Total Bilirubin 0.4 MG/DL (0.2-1.0) Direct Bilirubin < 0.1 MG/DL (0.0-0.3) Aspartate Amino Transf (AST/SGOT) 66 U/L (15-37) H Alanine Aminotransferase (ALT/SGPT) 48 U/L (12-78) Alkaline Phosphatase 51 U/L (46-116) Total Protein 6.4 G/DL (6.4-8.2) Albumin 2.7 G/DL (3.4-5.0) L Globulin 3.7 g/dL Albumin/Globulin Ratio 0.7 (1.0-2.7) L Microbiology Date/Time Source Procedure Growth Status 03/12/20 18:25 Nasal Nares - Final Complete 03/12/20 18:25 Nasal Nares - Final Complete 03/12/20 18:25 Nasopharynx SARS-CoV-2 RdRp Gene Assay - Final Complete 03/12/20 18:25 Blood Blood Culture - Preliminary NO GROWTH AFTER 48 HOURS Resulted 03/12/20 18:10 Blood Blood Culture - Preliminary NO GROWTH AFTER 48 HOURS Resulted Radha Guzman PA-C Mar 15, 2020 17:21
[2020-03-15] MEDS: Azithromycin 500 MG in D5W 275 ML IV SCH (17:27)
[2020-03-15] MEDS: cefTRIAXone 1 GM in D5W 55 ML IVPB SCH (17:32)
[2020-03-15 20:00] VITALS: BP 111/74
[2020-03-16] VITALS: BP_SYST 124; BP_DIAS 69; BP_DIAS 89
[2020-03-16 04:00] VITALS: BP 113/76
--- NOTE | 2020-03-16 06:28 | Hematology/Onc Progress Note ---
Assessment/Plan Assessment/Plan Imaging: reviewed IMPRESSION: 1. Thrombocytopenia is very likely related to COVID-19 pneumonia++++++. --> On remdesivir and Decadron per Dr. Moreno. --> On ceftriaxone and azithromycin per Dr. Bruce. --> Currently saturating well on low-flow oxygen. --> per pulm and id recs --> hep and hiv is neg --> us abd shows fatty liver disease] 2. Leukopenia. --> smear is noted 3. Elevated D-dimer. --> duplex lower legs neg 4. Respiratory alkalosis. --> per pulm 5. Dvt ppx lovenox sq Appreciate consultation and dw RN Subjective Constitutional: Denies: no symptoms, chills, fever, malaise, weakness, other HEENT: Denies: no symptoms, eye pain, blurred vision, tearing, double vision, ear pain, ear discharge, nose pain, nose congestion, throat pain, throat swelling, mouth pain, mouth swelling, other Cardiovascular: Denies: no symptoms, chest pain, edema, irregular heart rate, lightheadedness, palpitations, syncope, other Gastrointestinal/Abdominal: Denies: no symptoms, abdomen distended, abdominal pain, black stools, tarry stools, blood in stool, constipated, diarrhea, difficulty swallowing, nausea, poor appetite, poor fluid intake, rectal bleeding, vomiting, other Genitourinary: Denies: no symptoms, burning, discharge, frequency, flank pain, hematuria, incontinence, pain, urgency, other Neurologic/Psychiatric: Denies: no symptoms, anxiety, depressed, emotional problems, headache, numbness, paresthesia, pre-existing deficit, seizure, tingling, tremors, weakness, other Endocrine: Denies: no symptoms, excessive sweating, flushing, intolerance to cold, intolerance to heat, increased hunger, increased thirst, increased urine, unexplained weight gain, unexplained weight loss, other Hematologic/Lymphatic: Denies: no symptoms, anemia, easy bleeding, easy bruising, adenopathy, other Allergies: Coded Allergies: No Known Allergies (Unverified , 03/12/20) Subjective 03/16 asymptomatic, on 2lnc, no bleeding, meds noted Objective Objective Current Medications Medications (Trade) Dose Ordered Sig/Marcello Route PRN Reason Start Time Stop Time Status Last Admin Dose Admin Azithromycin 500 mg/Dextrose 275 ml @ 275 mls/hr Q24H IV 03/13/20 17:30 03/18/20 17:29 03/15/20 17:27 Ceftriaxone Sodium 1 gm/ Dextrose 55 ml @ 110 mls/hr Q24H IVPB 03/13/20 17:30 03/20/20 17:29 03/15/20 17:32 Dexamethasone Sodium Phosphate (Decadron 4mg/ml vial) 6 mg DAILY IVP 03/13/20 09:00 03/21/20 23:59 03/15/20 09:45 Enoxaparin Sodium (Lovenox) 30 mg DAILY SUBQ 03/15/20 09:00 06/13/20 08:59 Famotidine (Pepcid) 20 mg DAILY ORAL 03/13/20 09:00 06/11/20 08:59 03/15/20 09:45 Lorazepam (Ativan 2mg/ml 1ml) 0.5 mg Q4H PRN IV For Anxiety 03/12/20 23:45 03/19/20 23:44 Ondansetron HCl (Zofran) 4 mg Q6H PRN IVP Nausea & Vomiting 03/12/20 23:45 04/11/20 23:44 Polyethylene Glycol (Miralax) 17 gm DAILYPRN PRN ORAL Constipation 03/12/20 23:45 04/11/20 23:44 Remdesivir 100 mg/ Sodium Chloride 250 ml @ 250 mls/hr Q24H IV 03/14/20 11:00 03/17/20 10:59 03/15/20 11:00 Sodium Chloride 1,000 ml @ 50 mls/hr Q20H IV 03/13/20 22:45 04/12/20 22:44 03/15/20 15:04 Zolpidem Tartrate (Ambien) 5 mg HSPRN PRN ORAL Insomnia 03/12/20 23:45 03/19/20 23:44 Last 24 Hour Vital Signs Date Time Temp Pulse Resp B/P (MAP) Pulse Ox O2 Delivery O2 Flow Rate FiO2 03/16/20 04:00 97.4 54 17 113/76 (88) 97 03/16/20 04:00 44 03/16/20 00:00 47 03/16/20 00:00 98.1 52 17 124/89 (101) 97 03/15/20 21:00 Nasal Cannula 3.0 03/15/20 20:00 48 03/15/20 20:00 97.1 75 19 111/74 (86) 98 03/15/20 20:00 96 Nasal Cannula 3.0 32 03/15/20 16:00 96.8 69 19 120/67 (84) 96 03/15/20 16:00 52 03/15/20 12:00 97.7 59 18 118/77 (91) 98 03/15/20 09:33 97 Nasal Cannula 3.0 32 03/15/20 09:00 Nasal Cannula 3.0 03/15/20 08:00 98.6 68 20 115/69 (84) 95 03/15/20 08:00 51 03/15/20 04:00 97.1 58 19 114/54 (74) 97 03/15/20 04:00 51 03/15/20 00:00 57 03/15/20 00:00 64 03/15/20 00:00 97.1 59 19 103/63 (76) 100 03/14/20 21:00 Nasal Cannula 3.0 03/14/20 20:13 98 Nasal Cannula 3.0 32 03/14/20 20:00 97.3 64 18 119/72 (88) 100 03/14/20 20:00 64 03/14/20 16:00 64 03/14/20 16:00 97.2 54 18 123/72 (89) 100 03/14/20 12:00 69 03/14/20 12:00 97.6 77 18 128/88 (101) 97 03/14/20 09:00 Nasal Cannula 3.0 03/14/20 08:00 59 03/14/20 08:00 98.4 71 18 118/83 (95) 100 Intake and Output 03/15/20 03/16/20 19:00 07:00 Intake Total 160 ml Balance 160 ml Intake Oral 160 ml # Voids 3 3 # Bowel Movements 1 2 Labs Test 03/13/20 07:17 03/14/20 04:00 03/15/20 04:00 03/15/20 18:30 Sodium Level 137 MMOL/L (136-145) 138 MMOL/L (136-145) 140 MMOL/L (136-145) Potassium Level 5.2 MMOL/L (3.5-5.1) 4.1 MMOL/L (3.5-5.1) 3.9 MMOL/L (3.5-5.1) Chloride Level 106 MMOL/L (98-107) 106 MMOL/L (98-107) 108 MMOL/L (98-107) Carbon Dioxide Level 26 MMOL/L (21-32) 23 MMOL/L (21-32) 24 MMOL/L (21-32) Anion Gap 5 mmol/L (5-15) 9 mmol/L (5-15) 8 mmol/L (5-15) Blood Urea Nitrogen 21 mg/dL (7-18) 29 mg/dL (7-18) 26 mg/dL (7-18) Creatinine 0.9 MG/DL (0.55-1.30) 0.8 MG/DL (0.55-1.30) 0.9 MG/DL (0.55-1.30) Estimat Glomerular Filtration Rate 59.7 mL/min (>60) > 60 mL/min (>60) 59.7 mL/min (>60) Glucose Level 117 MG/DL (74-106) 116 MG/DL (74-106) 111 MG/DL (74-106) Calcium Level 7.1 MG/DL (8.5-10.1) 7.9 MG/DL (8.5-10.1) 7.7 MG/DL (8.5-10.1) Total Bilirubin 0.3 MG/DL (0.2-1.0) 0.3 MG/DL (0.2-1.0) 0.4 MG/DL (0.2-1.0) Aspartate Amino Transf (AST/SGOT) 67 U/L (15-37) 81 U/L (15-37) 66 U/L (15-37) Alanine Aminotransferase (ALT/SGPT) 35 U/L (12-78) 46 U/L (12-78) 48 U/L (12-78) Alkaline Phosphatase 49 U/L (46-116) 51 U/L (46-116) 51 U/L (46-116) Total Protein 5.9 G/DL (6.4-8.2) 6.4 G/DL (6.4-8.2) 6.4 G/DL (6.4-8.2) Albumin 2.4 G/DL (3.4-5.0) 2.7 G/DL (3.4-5.0) 2.7 G/DL (3.4-5.0) Globulin 3.5 g/dL 3.7 g/dL 3.7 g/dL Albumin/Globulin Ratio 0.7 (1.0-2.7) 0.7 (1.0-2.7) 0.7 (1.0-2.7) White Blood Count 4.3 K/UL (4.8-10.8) 2.5 K/UL (4.8-10.8) Red Blood Count 4.53 M/UL (4.20-5.40) 4.46 M/UL (4.20-5.40) Hemoglobin 14.6 G/DL (12.0-16.0) 14.5 G/DL (12.0-16.0) Hematocrit 43.7 % (37.0-47.0) 42.0 % (37.0-47.0) Mean Corpuscular Volume 97 FL (80-99) 94 FL (80-99) Mean Corpuscular Hemoglobin 32.3 PG (27.0-31.0) 32.6 PG (27.0-31.0) Mean Corpuscular Hemoglobin Concent 33.4 G/DL (32.0-36.0) 34.6 G/DL (32.0-36.0) Red Cell Distribution Width 12.9 % (11.6-14.8) 12.8 % (11.6-14.8) Platelet Count 108 K/UL (150-450) 144 K/UL (150-450) Mean Platelet Volume 8.3 FL (6.5-10.1) 9.3 FL (6.5-10.1) Neutrophils (%) (Auto) 81.8 % (45.0-75.0) % (45.0-75.0) Lymphocytes (%) (Auto) 12.6 % (20.0-45.0) % (20.0-45.0) Monocytes (%) (Auto) 5.3 % (1.0-10.0) % (1.0-10.0) Eosinophils (%) (Auto) 0.1 % (0.0-3.0) % (0.0-3.0) Basophils (%) (Auto) 0.2 % (0.0-2.0) % (0.0-2.0) Direct Bilirubin < 0.1 MG/DL (0.0-0.3) < 0.1 MG/DL (0.0-0.3) Hepatitis A IgM Antibody Negative (Negative) Hepatitis B Surface Antigen Negative (Negative) Hepatitis B Core IgM Antibody Negative (Negative) Hepatitis C Antibody <0.1 s/co ratio HIV (1&2) Antibody Rapid Negative (NEGATIVE) Differential Total Cells Counted 100 Neutrophils % (Manual) 69 % (45-75) Lymphocytes % (Manual) 25 % (20-45) Monocytes % (Manual) 6 % (1-10) Eosinophils % (Manual) 0 % (0-3) Basophils % (Manual) 0 % (0-2) Band Neutrophils 0 % (0-8) Platelet Estimate Decreased Platelet Morphology Normal Red Blood Cell Morphology Normal Troponin I 0.040 ng/mL (0.000-0.056) Height (Feet): 5 Height (Inches): 0.00 Weight (Pounds): 105 Objective Physical Exam Gen: Nad Pulm: ctab, no cwr CV: rrr, no mgr Abd: soft, nt, nd Ext: no cce Omar Lynch MD Mar 16, 2020 06:28
[2020-03-16 07:05] LABS: HEMOGLOBIN 14.3 G/DL (12.0-16.0); MEAN CORPUSCULAR VOLUME 95 FL (80-99); PLATELET COUNT 147 K/UL (150-450); RED BLOOD COUNT 4.32 M/UL (4.20-5.40); RED CELL DISTRIBUTION WIDTH 13.1 % (11.6-14.8); WHITE BLOOD COUNT 2.4 K/UL (4.8-10.8)
[2020-03-16 07:35] LABS: ALBUMIN 2.6 G/DL (3.4-5.0); ALBUMIN/GLOBULIN RATIO 0.8 (1.0-2.7); BILIRUBIN,DIRECT 0.1 MG/DL (0.0-0.3); BILIRUBIN,TOTAL 0.4 MG/DL (0.2-1.0); CALCIUM 7.6 MG/DL (8.5-10.1); CREATININE 0.9 MG/DL (0.55-1.30); POTASSIUM 3.5 MMOL/L (3.5-5.1)
[2020-03-16 08:00] VITALS: BP 126/84
[2020-03-16] MEDS: Enoxaparin 30mg Inj SUBQ SCH (08:53)
[2020-03-16] MEDS: Maintenance Dose:Remdesivir 100mg/NS 230ml x 4 Doses IV SCH ×2 (11:17)
--- NOTE | 2020-03-16 11:55 | Pulmonology Progress Note ---
Subjective ROS Limited/Unobtainable: No Interval Events: None new Constitutional: Reports: no symptoms HEENT: Repors: no symptoms Respiratory: Reports: no symptoms Cardiovascular: Reports: no symptoms Gastrointestinal/Abdominal: Reports: no symptoms Psychiatric: Reports: no symptoms Skin: Reports: no symptoms Musculoskeletal: Reports: no symptoms Allergies: Coded Allergies: No Known Allergies (Unverified , 03/12/20) Objective Last 24 Hour Vital Signs Date Time Temp Pulse Resp B/P (MAP) Pulse Ox O2 Delivery O2 Flow Rate FiO2 03/16/20 09:00 Nasal Cannula 3.0 03/16/20 08:00 96.8 80 20 126/84 (98) 96 03/16/20 04:00 97.4 54 17 113/76 (88) 97 03/16/20 04:00 44 03/16/20 00:00 47 03/16/20 00:00 98.1 52 17 124/89 (101) 97 03/15/20 21:00 Nasal Cannula 3.0 03/15/20 20:00 48 03/15/20 20:00 97.1 75 19 111/74 (86) 98 03/15/20 20:00 96 Nasal Cannula 3.0 32 03/15/20 16:00 96.8 69 19 120/67 (84) 96 03/15/20 16:00 52 03/15/20 12:00 97.7 59 18 118/77 (91) 98 Intake and Output 03/15/20 03/16/20 19:00 07:00 Intake Total 160 ml Balance 160 ml Intake Oral 160 ml # Voids 3 3 # Bowel Movements 1 2 Objective 03/16 2D echo at the time of exam; NAD 03/15 PT eval at the time of exam General Appearance: no acute distress HEENT: normocephalic Respiratory: chest wall non-tender, lungs clear Cardiovascular: normal peripheral pulses Abdomen: normal bowel sounds Extremities: no cyanosis Laboratory Tests 03/15/20 18:30: Troponin I 0.040 03/16/20 06:15: White Blood Count 2.4L, Red Blood Count 4.32, Hemoglobin 14.3, Hematocrit 41.0, Mean Corpuscular Volume 95, Mean Corpuscular Hemoglobin 33.0H, Mean Corpuscular Hemoglobin Concent 34.8, Red Cell Distribution Width 13.1, Platelet Count 147L, Mean Platelet Volume 8.7, Neutrophils (%) (Auto) , Lymphocytes (%) (Auto) , Monocytes (%) (Auto) , Eosinophils (%) (Auto) , Basophils (%) (Auto) , Differential Total Cells Counted 100, Neutrophils % (Manual) 70, Lymphocytes % (Manual) 17L, Monocytes % (Manual) 12H, Eosinophils % (Manual) 1, Basophils % (Manual) 0, Band Neutrophils 0, Platelet Estimate DecreasedL, Platelet Morphology Normal, Red Blood Cell Morphology Normal, Sodium Level 141, Potassium Level 3.5, Chloride Level 108H, Carbon Dioxide Level 25, Anion Gap 8, Blood Urea Nitrogen 23H, Creatinine 0.9, Estimat Glomerular Filtration Rate 59.7, Glucose Level 101, Calcium Level 7.6L, Total Bilirubin 0.4, Direct Bilirubin 0.1, Aspartate Amino Transf (AST/SGOT) 46H, Alanine Aminotransferase (ALT/SGPT) 37, Alkaline Phosphatase 46, Total Protein 5.9L, Albumin 2.6L, Globulin 3.3, Albumin/Globulin Ratio 0.8L Current Medications Medications (Trade) Dose Ordered Sig/Marcello Route PRN Reason Start Time Stop Time Status Last Admin Dose Admin Azithromycin 500 mg/Dextrose 275 ml @ 275 mls/hr Q24H IV 03/13/20 17:30 03/18/20 17:29 03/15/20 17:27 Ceftriaxone Sodium 1 gm/ Dextrose 55 ml @ 110 mls/hr Q24H IVPB 03/13/20 17:30 03/20/20 17:29 03/15/20 17:32 Dexamethasone Sodium Phosphate (Decadron 4mg/ml vial) 6 mg DAILY IVP 03/13/20 09:00 03/21/20 23:59 03/16/20 08:18 Enoxaparin Sodium (Lovenox) 30 mg DAILY SUBQ 03/15/20 09:00 06/13/20 08:59 03/16/20 08:53 Famotidine (Pepcid) 20 mg DAILY ORAL 03/13/20 09:00 06/11/20 08:59 03/16/20 08:18 Lorazepam (Ativan 2mg/ml 1ml) 0.5 mg Q4H PRN IV For Anxiety 03/12/20 23:45 03/19/20 23:44 Ondansetron HCl (Zofran) 4 mg Q6H PRN IVP Nausea & Vomiting 03/12/20 23:45 04/11/20 23:44 Polyethylene Glycol (Miralax) 17 gm DAILYPRN PRN ORAL Constipation 03/12/20 23:45 04/11/20 23:44 Remdesivir 100 mg/ Sodium Chloride 250 ml @ 250 mls/hr Q24H IV 03/14/20 11:00 03/17/20 10:59 03/16/20 11:17 Sodium Chloride 1,000 ml @ 50 mls/hr Q20H IV 03/13/20 22:45 04/12/20 22:44 03/16/20 11:18 Zolpidem Tartrate (Ambien) 5 mg HSPRN PRN ORAL Insomnia 03/12/20 23:45 03/19/20 23:44 Assessment/Plan Assessment/Plan 1. COVID-19 pneumonia with hypoxia. - On remdesivir and Decadron per ID - continue ceftriaxone and azithromycin - Currently saturating well on low-flow oxygen. (2L/min) - Continue supplemental oxygen. 2. Leukopenia. 3. Elevated D-dimer. - venous duplex US LE- neg - on Lovenox 4. Respiratory alkalosis. 5. CHF - 2D echo result pending The care of this patient was discussed with my supervising physician Time spent for this encounter was approximately 31 minutes Tan Garcia Mar 16, 2020 11:55 Agustín Marin MD Mar 17, 2020 13:41
[2020-03-16 12:00] VITALS: BP 128/61
--- NOTE | 2020-03-16 14:36 | Cardiology Progress Note ---
Assessment/Plan Status Narrative Assessment/Plan 1. COVID-19 viral PNA 2. SOB/ZAPIEN 3. HTN 4. Sinus bradycardia 5. CHF - echo pending 6. Troponin leak - 0.07 top 0.04 denies chest pain Tx for viral PNA per ID. Echo done today, result pending. repeat troponin negative. SR, HR in the 50's asymptomatic. Subjective ROS Limited/Unobtainable: No Cardiovascular: Reports: no symptoms Respiratory: Reports: shortness of breath Gastrointestinal/Abdominal: Reports: poor appetite Genitourinary: Reports: no symptoms Subjective Flu like symptoms, resting comfortably Objective Last 24 Hour Vital Signs Date Time Temp Pulse Resp B/P (MAP) Pulse Ox O2 Delivery O2 Flow Rate FiO2 03/16/20 13:15 97 Nasal Cannula 3.0 32 03/16/20 12:00 96.7 71 20 128/61 (83) 97 03/16/20 09:00 Nasal Cannula 3.0 03/16/20 08:00 96.8 80 20 126/84 (98) 96 03/16/20 08:00 48 03/16/20 04:00 97.4 54 17 113/76 (88) 97 03/16/20 04:00 44 03/16/20 00:00 47 03/16/20 00:00 98.1 52 17 124/89 (101) 97 03/15/20 21:00 Nasal Cannula 3.0 03/15/20 20:00 48 03/15/20 20:00 97.1 75 19 111/74 (86) 98 03/15/20 20:00 96 Nasal Cannula 3.0 32 03/15/20 16:00 96.8 69 19 120/67 (84) 96 03/15/20 16:00 52 General Appearance: no apparent distress EENT: PERRL/EOMI Neck: no JVD Respiratory/Chest: no respiratory distress Abdomen: non tender Intake and Output 03/15/20 03/16/20 19:00 07:00 Intake Total 160 ml Balance 160 ml Intake Oral 160 ml # Voids 3 3 # Bowel Movements 1 2 Laboratory Tests Test 03/15/20 18:30 03/16/20 06:15 Troponin I 0.040 ng/mL (0.000-0.056) White Blood Count 2.4 K/UL (4.8-10.8) L Red Blood Count 4.32 M/UL (4.20-5.40) Hemoglobin 14.3 G/DL (12.0-16.0) Hematocrit 41.0 % (37.0-47.0) Mean Corpuscular Volume 95 FL (80-99) Mean Corpuscular Hemoglobin 33.0 PG (27.0-31.0) H Mean Corpuscular Hemoglobin Concent 34.8 G/DL (32.0-36.0) Red Cell Distribution Width 13.1 % (11.6-14.8) Platelet Count 147 K/UL (150-450) L Mean Platelet Volume 8.7 FL (6.5-10.1) Neutrophils (%) (Auto) % (45.0-75.0) Lymphocytes (%) (Auto) % (20.0-45.0) Monocytes (%) (Auto) % (1.0-10.0) Eosinophils (%) (Auto) % (0.0-3.0) Basophils (%) (Auto) % (0.0-2.0) Differential Total Cells Counted 100 Neutrophils % (Manual) 70 % (45-75) Lymphocytes % (Manual) 17 % (20-45) L Monocytes % (Manual) 12 % (1-10) H Eosinophils % (Manual) 1 % (0-3) Basophils % (Manual) 0 % (0-2) Band Neutrophils 0 % (0-8) Platelet Estimate Decreased L Platelet Morphology Normal Red Blood Cell Morphology Normal Sodium Level 141 MMOL/L (136-145) Potassium Level 3.5 MMOL/L (3.5-5.1) Chloride Level 108 MMOL/L (98-107) H Carbon Dioxide Level 25 MMOL/L (21-32) Anion Gap 8 mmol/L (5-15) Blood Urea Nitrogen 23 mg/dL (7-18) H Creatinine 0.9 MG/DL (0.55-1.30) Estimat Glomerular Filtration Rate 59.7 mL/min (>60) Glucose Level 101 MG/DL (74-106) Calcium Level 7.6 MG/DL (8.5-10.1) L Total Bilirubin 0.4 MG/DL (0.2-1.0) Direct Bilirubin 0.1 MG/DL (0.0-0.3) Aspartate Amino Transf (AST/SGOT) 46 U/L (15-37) H Alanine Aminotransferase (ALT/SGPT) 37 U/L (12-78) Alkaline Phosphatase 46 U/L (46-116) Total Protein 5.9 G/DL (6.4-8.2) L Albumin 2.6 G/DL (3.4-5.0) L Globulin 3.3 g/dL Albumin/Globulin Ratio 0.8 (1.0-2.7) L Radha Guzman PA-C Mar 16, 2020 14:36
--- NOTE | 2020-03-16 15:08 | Infectious Diseases Prog Note ---
Assessment/Plan Problems: (1) Suspected COVID-19 virus infection Assessment & Plan: With positive rapid test and high inflammatory markers , await PCR test to confirm, continue Remdisvir iv for 5 days and decadrone for 10 days , keep in enhanced droplets isolation . monitor inflammatory markers (2) Exposure to COVID-19 virus Assessment & Plan: most likely from her , keep in isolation, monitor PCR test to confirm , highly likely infected with COVID 19 (3) Pneumonia due to COVID-19 virus Assessment & Plan: continue Remdisvir with decadron , droplets isolation, aspiration precaution , sputum culture if she produces any (4) Acute respiratory failure due to COVID-19 Assessment & Plan: with hypoxemia , sating 90% on room air , continue high flow oxygen , attempt prone position if needed , remdisvir with decadron for now . monitor CXR and ABG Subjective Constitutional: Reports: no symptoms HEENT: Reports: no symptoms Respiratory: Reports: no symptoms Breasts: Reports: no symptoms Cardiovascular: Reports: no symptoms Gastrointestinal/Abdominal: Reports: no symptoms Genitourinary: Reports: no symptoms Neurologic: Reports: no symptoms Psychiatric: Reports: no symptoms Skin: Reports: no symptoms Endocrine: Reports: no symptoms Hematologic: Reports: no symptoms Musculoskeletal: Reports: no symptoms Allergies: Coded Allergies: No Known Allergies (Unverified , 03/12/20) she is more awake and responsive, satting well on low flow oxygen, afebrile, no shortness of breath and no diarrhea Objective Last 24 Hour Vital Signs Date Time Temp Pulse Resp B/P (MAP) Pulse Ox O2 Delivery O2 Flow Rate FiO2 03/16/20 13:15 97 Nasal Cannula 3.0 32 03/16/20 12:00 96.7 71 20 128/61 (83) 97 03/16/20 12:00 53 03/16/20 09:00 Nasal Cannula 3.0 03/16/20 08:00 96.8 80 20 126/84 (98) 96 03/16/20 08:00 48 03/16/20 04:00 97.4 54 17 113/76 (88) 97 03/16/20 04:00 44 03/16/20 00:00 47 03/16/20 00:00 98.1 52 17 124/89 (101) 97 03/15/20 21:00 Nasal Cannula 3.0 03/15/20 20:00 48 03/15/20 20:00 97.1 75 19 111/74 (86) 98 03/15/20 20:00 96 Nasal Cannula 3.0 32 03/15/20 16:00 96.8 69 19 120/67 (84) 96 03/15/20 16:00 52 Height (Feet): 5 Height (Inches): 0.00 Weight (Pounds): 105 General Appearance: WD/WN, no acute distress HEENT: normocephalic, atraumatic, anicteric, mucous membranes moist, PERRL Respiratory/Chest: chest wall non-tender, no respiratory distress, no accessory muscle use, decreased breath sounds Cardiovascular: normal peripheral pulses, normal rate, regular rhythm, no gallop/murmur, no JVD Abdomen: normal bowel sounds, soft, non tender, no organomegaly, non distended, no mass Genitourinary: normal external genitalia Extremities: no cyanosis, no clubbing Skin: no rash, no lesions 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, 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, responsive Lymphatic: no neck adenopathy, no groin adenopathy Musculoskeletal: normal muscle bulk, no effusion Laboratory Tests Test 03/15/20 18:30 03/16/20 06:15 Troponin I 0.040 ng/mL (0.000-0.056) White Blood Count 2.4 K/UL (4.8-10.8) L Red Blood Count 4.32 M/UL (4.20-5.40) Hemoglobin 14.3 G/DL (12.0-16.0) Hematocrit 41.0 % (37.0-47.0) Mean Corpuscular Volume 95 FL (80-99) Mean Corpuscular Hemoglobin 33.0 PG (27.0-31.0) H Mean Corpuscular Hemoglobin Concent 34.8 G/DL (32.0-36.0) Red Cell Distribution Width 13.1 % (11.6-14.8) Platelet Count 147 K/UL (150-450) L Mean Platelet Volume 8.7 FL (6.5-10.1) Neutrophils (%) (Auto) % (45.0-75.0) Lymphocytes (%) (Auto) % (20.0-45.0) Monocytes (%) (Auto) % (1.0-10.0) Eosinophils (%) (Auto) % (0.0-3.0) Basophils (%) (Auto) % (0.0-2.0) Differential Total Cells Counted 100 Neutrophils % (Manual) 70 % (45-75) Lymphocytes % (Manual) 17 % (20-45) L Monocytes % (Manual) 12 % (1-10) H Eosinophils % (Manual) 1 % (0-3) Basophils % (Manual) 0 % (0-2) Band Neutrophils 0 % (0-8) Platelet Estimate Decreased L Platelet Morphology Normal Red Blood Cell Morphology Normal Sodium Level 141 MMOL/L (136-145) Potassium Level 3.5 MMOL/L (3.5-5.1) Chloride Level 108 MMOL/L (98-107) H Carbon Dioxide Level 25 MMOL/L (21-32) Anion Gap 8 mmol/L (5-15) Blood Urea Nitrogen 23 mg/dL (7-18) H Creatinine 0.9 MG/DL (0.55-1.30) Estimat Glomerular Filtration Rate 59.7 mL/min (>60) Glucose Level 101 MG/DL (74-106) Calcium Level 7.6 MG/DL (8.5-10.1) L Total Bilirubin 0.4 MG/DL (0.2-1.0) Direct Bilirubin 0.1 MG/DL (0.0-0.3) Aspartate Amino Transf (AST/SGOT) 46 U/L (15-37) H Alanine Aminotransferase (ALT/SGPT) 37 U/L (12-78) Alkaline Phosphatase 46 U/L (46-116) Total Protein 5.9 G/DL (6.4-8.2) L Albumin 2.6 G/DL (3.4-5.0) L Globulin 3.3 g/dL Albumin/Globulin Ratio 0.8 (1.0-2.7) L Current Medications Medications (Trade) Dose Ordered Sig/Marcello Route PRN Reason Start Time Stop Time Status Last Admin Dose Admin Azithromycin 500 mg/Dextrose 275 ml @ 275 mls/hr Q24H IV 03/13/20 17:30 03/18/20 17:29 03/15/20 17:27 Ceftriaxone Sodium 1 gm/ Dextrose 55 ml @ 110 mls/hr Q24H IVPB 03/13/20 17:30 03/20/20 17:29 03/15/20 17:32 Dexamethasone Sodium Phosphate (Decadron 4mg/ml vial) 6 mg DAILY IVP 03/13/20 09:00 03/21/20 23:59 03/16/20 08:18 Enoxaparin Sodium (Lovenox) 30 mg DAILY SUBQ 03/15/20 09:00 06/13/20 08:59 03/16/20 08:53 Famotidine (Pepcid) 20 mg DAILY ORAL 03/13/20 09:00 06/11/20 08:59 03/16/20 08:18 Lorazepam (Ativan 2mg/ml 1ml) 0.5 mg Q4H PRN IV For Anxiety 03/12/20 23:45 03/19/20 23:44 Ondansetron HCl (Zofran) 4 mg Q6H PRN IVP Nausea & Vomiting 03/12/20 23:45 04/11/20 23:44 Polyethylene Glycol (Miralax) 17 gm DAILYPRN PRN ORAL Constipation 03/12/20 23:45 04/11/20 23:44 Remdesivir 100 mg/ Sodium Chloride 250 ml @ 250 mls/hr Q24H IV 03/14/20 11:00 03/17/20 10:59 03/16/20 11:17 Sodium Chloride 1,000 ml @ 50 mls/hr Q20H IV 03/13/20 22:45 04/12/20 22:44 03/16/20 11:18 Zolpidem Tartrate (Ambien) 5 mg HSPRN PRN ORAL Insomnia 03/12/20 23:45 03/19/20 23:44 Juice Moreno M.D. Mar 16, 2020 15:08
--- NOTE | 2020-03-16 15:28 | General Progress Note ---
Subjective Allergies: Coded Allergies: No Known Allergies (Unverified , 03/12/20) Objective Last 24 Hour Vital Signs Date Time Temp Pulse Resp B/P (MAP) Pulse Ox O2 Delivery O2 Flow Rate FiO2 03/16/20 13:15 97 Nasal Cannula 3.0 32 03/16/20 12:00 96.7 71 20 128/61 (83) 97 03/16/20 12:00 53 03/16/20 09:00 Nasal Cannula 3.0 03/16/20 08:00 96.8 80 20 126/84 (98) 96 03/16/20 08:00 48 03/16/20 04:00 97.4 54 17 113/76 (88) 97 03/16/20 04:00 44 03/16/20 00:00 47 03/16/20 00:00 98.1 52 17 124/89 (101) 97 03/15/20 21:00 Nasal Cannula 3.0 03/15/20 20:00 48 03/15/20 20:00 97.1 75 19 111/74 (86) 98 03/15/20 20:00 96 Nasal Cannula 3.0 32 03/15/20 16:00 96.8 69 19 120/67 (84) 96 03/15/20 16:00 52 Intake and Output 03/15/20 03/16/20 19:00 07:00 Intake Total 160 ml Balance 160 ml Intake Oral 160 ml # Voids 3 3 # Bowel Movements 1 2 Laboratory Tests 03/15/20 18:30: Troponin I 0.040 03/16/20 06:15: White Blood Count 2.4L, Red Blood Count 4.32, Hemoglobin 14.3, Hematocrit 41.0, Mean Corpuscular Volume 95, Mean Corpuscular Hemoglobin 33.0H, Mean Corpuscular Hemoglobin Concent 34.8, Red Cell Distribution Width 13.1, Platelet Count 147L, Mean Platelet Volume 8.7, Neutrophils (%) (Auto) , Lymphocytes (%) (Auto) , Monocytes (%) (Auto) , Eosinophils (%) (Auto) , Basophils (%) (Auto) , Differential Total Cells Counted 100, Neutrophils % (Manual) 70, Lymphocytes % (Manual) 17L, Monocytes % (Manual) 12H, Eosinophils % (Manual) 1, Basophils % (Manual) 0, Band Neutrophils 0, Platelet Estimate DecreasedL, Platelet M orphology Normal, Red Blood Cell Morphology Normal, Sodium Level 141, Potassium Level 3.5, Chloride Level 108H, Carbon Dioxide Level 25, Anion Gap 8, Blood Urea Nitrogen 23H, Creatinine 0.9, Estimat Glomerular Filtration Rate 59.7, Glucose Level 101, Calcium Level 7.6L, Total Bilirubin 0.4, Direct Bilirubin 0.1, Aspartate Amino Transf (AST/SGOT) 46H, Alanine Aminotransferase (ALT/SGPT) 37, Alkaline Phosphatase 46, Total Protein 5.9L, Albumin 2.6L, Globulin 3.3, Albumin/Globulin Ratio 0.8L Height (Feet): 5 Height (Inches): 0.00 Weight (Pounds): 105 Assessment/Plan Status: stable Assessment/Plan: S, O: seems comfortable, PHYSICAL EXAMINATION:HEAD AND NECK: Atraumatic and normocephalic. CHEST: Diffuse bronchial breathing sounds. HEART: S1, S2. Regular rate and rhythm. ABDOMEN: Soft. No organomegaly. MUSCULOSKELETAL: No gross lateralized motor deficit. NEUROLOGY: Patient is awake, alert, oriented x3. Meds: reviewed and reconciled ASSESSMENT AND PLAN: 1. COVID positive pneumonia. 2. Acute renal failure. 3. Leukopenia. 4. Thrombocytopenia. 5. Abnormal LFT. 6. Abnormal troponin levels. 7. GI and DVT prophylaxes. PLAN OF CARE: Current management. interval improvement in wbc counts Notes from Hem is reveiwed I called and left a for the daughter on Mar 15 Alison Bruce MD Mar 16, 2020 15:28
[2020-03-16 16:00] VITALS: BP 131/71
[2020-03-16] MEDS: Azithromycin 500 MG in D5W 275 ML IV SCH (17:08)
[2020-03-16] MEDS: cefTRIAXone 1 GM in D5W 55 ML IVPB SCH (17:20)
[2020-03-16 20:00] VITALS: BP 128/72
[2020-03-17] VITALS: BP 144/84
[2020-03-17 04:00] VITALS: BP 124/81
--- NOTE | 2020-03-17 06:25 | Hematology/Onc Progress Note ---
Assessment/Plan Assessment/Plan 1. Thrombocytopenia is very likely related to COVID-19 pneumonia++++++. --> On remdesivir and Decadron per Dr. Moreno. --> On ceftriaxone and azithromycin per Dr. Bruce. --> Currently saturating well on low-flow oxygen. --> per pulm and id recs --> hep and hiv is neg --> us abd shows fatty liver disease] --> plt 147 2. Leukopenia. --> smear is noted 3. Elevated D-dimer. --> duplex lower legs neg 4. Respiratory alkalosis. --> per pulm 5. Dvt ppx lovenox sq Appreciate consultation and waldemar RN Subjective HEENT: Denies: no symptoms, eye pain, blurred vision, tearing, double vision, ear pain, ear discharge, nose pain, nose congestion, throat pain, throat swelling, mouth pain, mouth swelling, other Cardiovascular: Denies: no symptoms, chest pain, edema, irregular heart rate, lightheadedness, palpitations, syncope, other Respiratory: Denies: no symptoms, cough, shortness of breath, SOB with excertion, SOB at rest, sputum, wheezing, other Gastrointestinal/Abdominal: Denies: no symptoms, abdomen distended, abdominal pain, black stools, tarry stools, blood in stool, constipated, diarrhea, difficulty swallowing, nausea, poor appetite, poor fluid intake, rectal bleeding, vomiting, other Genitourinary: Denies: no symptoms, burning, discharge, frequency, flank pain, hematuria, incontinence, pain, urgency, other Neurologic/Psychiatric: Denies: no symptoms, anxiety, depressed, emotional problems, headache, numbness, paresthesia, pre-existing deficit, seizure, tingling, tremors, weakness, other Endocrine: Denies: no symptoms, excessive sweating, flushing, intolerance to cold, intolerance to heat, increased hunger, increased thirst, increased urine, unexplained weight gain, unexplained weight loss, other Hematologic/Lymphatic: Denies: no symptoms, anemia, easy bleeding, easy bruis ing, adenopathy, other Allergies: Coded Allergies: No Known Allergies (Unverified , 03/12/20) Subjective 03/16 asymptomatic, on 2lnc, no bleeding, meds noted 03/17 on 2lnc, no bleeding, wbc 2.4, labs reviewed, meds noted Objective Objective Current Medications Medications (Trade) Dose Ordered Sig/Marcello Route PRN Reason Start Time Stop Time Status Last Admin Dose Admin Azithromycin 500 mg/Dextrose 275 ml @ 275 mls/hr Q24H IV 03/13/20 17:30 03/18/20 17:29 03/16/20 17:08 Ceftriaxone Sodium 1 gm/ Dextrose 55 ml @ 110 mls/hr Q24H IVPB 03/13/20 17:30 03/20/20 17:29 03/16/20 17:20 Dexamethasone Sodium Phosphate (Decadron 4mg/ml vial) 6 mg DAILY IVP 03/13/20 09:00 03/21/20 23:59 03/16/20 08:18 Enoxaparin Sodium (Lovenox) 30 mg DAILY SUBQ 03/15/20 09:00 06/13/20 08:59 03/16/20 08:53 Famotidine (Pepcid) 20 mg DAILY ORAL 03/13/20 09:00 06/11/20 08:59 03/16/20 08:18 Lorazepam (Ativan 2mg/ml 1ml) 0.5 mg Q4H PRN IV For Anxiety 03/12/20 23:45 03/19/20 23:44 Ondansetron HCl (Zofran) 4 mg Q6H PRN IVP Nausea & Vomiting 03/12/20 23:45 04/11/20 23:44 Polyethylene Glycol (Miralax) 17 gm DAILYPRN PRN ORAL Constipation 03/12/20 23:45 04/11/20 23:44 Remdesivir 100 mg/ Sodium Chloride 250 ml @ 250 mls/hr Q24H IV 03/14/20 11:00 03/17/20 10:59 03/16/20 11:17 Sodium Chloride 1,000 ml @ 50 mls/hr Q20H IV 03/13/20 22:45 04/12/20 22:44 03/17/20 05:43 Zolpidem Tartrate (Ambien) 5 mg HSPRN PRN ORAL Insomnia 03/12/20 23:45 03/19/20 23:44 Last 24 Hour Vital Signs Date Time Temp Pulse Resp B/P (MAP) Pulse Ox O2 Delivery O2 Flow Rate FiO2 03/17/20 04:00 53 03/17/20 00:00 98.1 54 18 144/84 (104) 96 03/17/20 00:00 47 03/16/20 21:00 Nasal Cannula 3.0 03/16/20 20:15 99 Nasal Cannula 3.0 32 03/16/20 20:00 98.3 54 17 128/72 (90) 99 03/16/20 20:00 51 03/16/20 16:00 54 03/16/20 16:00 97.7 80 21 131/71 (91) 98 03/16/20 13:15 97 Nasal Cannula 3.0 32 03/16/20 12:00 96.7 71 20 128/61 (83) 97 03/16/20 12:00 53 03/16/20 09:00 Nasal Cannula 3.0 03/16/20 08:00 96.8 80 20 126/84 (98) 96 03/16/20 08:00 48 03/16/20 04:00 97.4 54 17 113/76 (88) 97 03/16/20 04:00 44 03/16/20 00:00 47 03/16/20 00:00 98.1 52 17 124/89 (101) 97 03/15/20 21:00 Nasal Cannula 3.0 03/15/20 20:00 48 03/15/20 20:00 97.1 75 19 111/74 (86) 98 03/15/20 20:00 96 Nasal Cannula 3.0 32 03/15/20 16:00 96.8 69 19 120/67 (84) 96 03/15/20 16:00 52 03/15/20 12:00 97.7 59 18 118/77 (91) 98 03/15/20 09:33 97 Nasal Cannula 3.0 32 03/15/20 09:00 Nasal Cannula 3.0 03/15/20 08:00 98.6 68 20 115/69 (84) 95 03/15/20 08:00 51 Intake and Output 03/16/20 03/17/20 19:00 07:00 Intake Total 120 ml 240 ml Balance 120 ml 240 ml Intake Oral 120 ml 240 ml # Voids 3 3 # Bowel Movements 1 1 Labs Test 03/15/20 04:00 03/15/20 18:30 03/16/20 06:15 White Blood Count 2.5 K/UL (4.8-10.8) 2.4 K/UL (4.8-10.8) Red Blood Count 4.46 M/UL (4.20-5.40) 4.32 M/UL (4.20-5.40) Hemoglobin 14.5 G/DL (12.0-16.0) 14.3 G/DL (12.0-16.0) Hematocrit 42.0 % (37.0-47.0) 41.0 % (37.0-47.0) Mean Corpuscular Volume 94 FL (80-99) 95 FL (80-99) Mean Corpuscular Hemoglobin 32.6 PG (27.0-31.0) 33.0 PG (27.0-31.0) Mean Corpuscular Hemoglobin Concent 34.6 G/DL (32.0-36.0) 34.8 G/DL (32.0-36.0) Red Cell Distribution Width 12.8 % (11.6-14.8) 13.1 % (11.6-14.8) Platelet Count 144 K/UL (150-450) 147 K/UL (150-450) Mean Platelet Volume 9.3 FL (6.5-10.1) 8.7 FL (6.5-10.1) Neutrophils (%) (Auto) % (45.0-75.0) % (45.0-75.0) Lymphocytes (%) (Auto) % (20.0-45.0) % (20.0-45.0) Monocytes (%) (Auto) % (1.0-10.0) % (1.0-10.0) Eosinophils (%) (Auto) % (0.0-3.0) % (0.0-3.0) Basophils (%) (Auto) % (0.0-2.0) % (0.0-2.0) Differential Total Cells Counted 100 100 Neutrophils % (Manual) 69 % (45-75) 70 % (45-75) Lymphocytes % (Manual) 25 % (20-45) 17 % (20-45) Monocytes % (Manual) 6 % (1-10) 12 % (1-10) Eosinophils % (Manual) 0 % (0-3) 1 % (0-3) Basophils % (Manual) 0 % (0-2) 0 % (0-2) Band Neutrophils 0 % (0-8) 0 % (0-8) Other Cell Type Pathologist review Platelet Estimate Decreased Decreased Platelet Morphology Normal Normal Red Blood Cell Morphology Normal Normal Sodium Level 140 MMOL/L (136-145) 141 MMOL/L (136-145) Potassium Level 3.9 MMOL/L (3.5-5.1) 3.5 MMOL/L (3.5-5.1) Chloride Level 108 MMOL/L (98-107) 108 MMOL/L (98-107) Carbon Dioxide Level 24 MMOL/L (21-32) 25 MMOL/L (21-32) Anion Gap 8 mmol/L (5-15) 8 mmol/L (5-15) Blood Urea Nitrogen 26 mg/dL (7-18) 23 mg/dL (7-18) Creatinine 0.9 MG/DL (0.55-1.30) 0.9 MG/DL (0.55-1.30) Estimat Glomerular Filtration Rate 59.7 mL/min (>60) 59.7 mL/min (>60) Glucose Level 111 MG/DL (74-106) 101 MG/DL (74-106) Calcium Level 7.7 MG/DL (8.5-10.1) 7.6 MG/DL (8.5-10.1) Total Bilirubin 0.4 MG/DL (0.2-1.0) 0.4 MG/DL (0.2-1.0) Direct Bilirubin < 0.1 MG/DL (0.0-0.3) 0.1 MG/DL (0.0-0.3) Aspartate Amino Transf (AST/SGOT) 66 U/L (15-37) 46 U/L (15-37) Alanine Aminotransferase (ALT/SGPT) 48 U/L (12-78) 37 U/L (12-78) Alkaline Phosphatase 51 U/L (46-116) 46 U/L (46-116) Total Protein 6.4 G/DL (6.4-8.2) 5.9 G/DL (6.4-8.2) Albumin 2.7 G/DL (3.4-5.0) 2.6 G/DL (3.4-5.0) Globulin 3.7 g/dL 3.3 g/dL Albumin/Globulin Ratio 0.7 (1.0-2.7) 0.8 (1.0-2.7) Troponin I 0.040 ng/mL (0.000-0.056) Height (Feet): 5 Height (Inches): 0.00 Weight (Pounds): 105 Objective Physical Exam Gen: Nad Pulm: ctab, no cwr CV: rrr, no mgr Abd: soft, nt, nd Ext: no cce Omar Lynch MD Mar 17, 2020 06:25
[2020-03-17 07:43] LABS: ALBUMIN 2.7 G/DL (3.4-5.0); ALBUMIN/GLOBULIN RATIO 0.8 (1.0-2.7); BILIRUBIN,DIRECT 0.2 MG/DL (0.0-0.3); BILIRUBIN,TOTAL 0.5 MG/DL (0.2-1.0); CALCIUM 7.7 MG/DL (8.5-10.1); CREATININE 0.9 MG/DL (0.55-1.30); POTASSIUM 3.3 MMOL/L (3.5-5.1)
[2020-03-17 08:00] VITALS: BP 132/69
[2020-03-17 08:20] LABS: BASOPHILS % (AUTO) 0.5 % (0.0-2.0); EOSINOPHILS % (AUTO) 0.1 % (0.0-3.0); HEMATOCRIT 38.9 % (37.0-47.0); HEMOGLOBIN 14.1 G/DL (12.0-16.0); MEAN CORPUSCULAR VOLUME 90 FL (80-99); MONOCYTES % (AUTO) 6.5 % (1.0-10.0); NEUTROPHILS % (AUTO) 78.8 % (45.0-75.0); PLATELET COUNT 177 K/UL (150-450); RED BLOOD COUNT 4.33 M/UL (4.20-5.40); RED CELL DISTRIBUTION WIDTH 14.6 % (11.6-14.8); WHITE BLOOD COUNT 5.3 K/UL (4.8-10.8)
[2020-03-17] MEDS: Enoxaparin 30mg Inj SUBQ SCH (08:23)
--- NOTE | 2020-03-17 11:54 | General Progress Note ---
Subjective Allergies: Coded Allergies: No Known Allergies (Unverified , 03/12/20) Objective Last 24 Hour Vital Signs Date Time Temp Pulse Resp B/P (MAP) Pulse Ox O2 Delivery O2 Flow Rate FiO2 03/17/20 09:00 Nasal Cannula 3.0 03/17/20 08:00 57 03/17/20 08:00 98.1 91 18 132/69 (90) 97 03/17/20 04:00 53 03/17/20 04:00 98.2 57 17 124/81 (95) 97 03/17/20 00:00 98.1 54 18 144/84 (104) 96 03/17/20 00:00 47 03/16/20 21:00 Nasal Cannula 3.0 03/16/20 20:15 99 Nasal Cannula 3.0 32 03/16/20 20:00 98.3 54 17 128/72 (90) 99 03/16/20 20:00 51 03/16/20 16:00 54 03/16/20 16:00 97.7 80 21 131/71 (91) 98 03/16/20 13:15 97 Nasal Cannula 3.0 32 03/16/20 12:00 96.7 71 20 128/61 (83) 97 03/16/20 12:00 53 Intake and Output 03/16/20 03/17/20 19:00 07:00 Intake Total 120 ml 240 ml Balance 120 ml 240 ml Intake Oral 120 ml 240 ml # Voids 3 3 # Bowel Movements 1 1 Laboratory Tests 03/17/20 06:25: White Blood Count 5.3#, Red Blood Count 4.33, Hemoglobin 14.1, Hematocrit 38.9, Mean Corpuscular Volume 90, Mean Corpuscular Hemoglobin 32.7H, Mean Corpuscular Hemoglobin Concent 36.3H, Red Cell Distribution Width 14.6, Platelet Count 177, Mean Platelet Volume 9.1, Neutrophils (%) (Auto) 78.8H, Lymphocytes (%) (Auto) 14.0L, Monocytes (%) (Auto) 6.5, Eosinophils (%) (Auto) 0.1, Basophils (%) (Auto) 0.5, Sodium Level 138, Potassium Level 3.3L, Chloride Level 104, Carbon Dioxide Level 25, Anion Gap 9, Blood Urea Nitrogen 19H, Creatinine 0.9, Estimat Glomerular Filtration Rate 59.7, Glucose Level 92, Calcium Level 7.7L, Total Bilirubin 0.5, Direct Bilirubin 0.2, Aspartate Amino Transf (AST/SGOT) 43H, Alanine Aminotransferase (ALT/SGPT) 36, Alkaline Phosphatase 51, Total Protein 5.9L, Albumin 2.7L, Globulin 3.2, Albumin/Globulin Ratio 0.8L Height (Feet): 5 Height (Inches): 0.00 Weight (Pounds): 105 Assessment/Plan Status: stable Assessment/Plan: S, O: seems comfortable, PHYSICAL EXAMINATION:HEAD AND NECK: Atraumatic and normocephalic. CHEST: Diffuse bronchial breathing sounds. HEART: S1, S2. Regular rate and rhythm. ABDOMEN: Soft. No organomegaly. MUSCULOSKELETAL: No gross lateralized motor deficit. NEUROLOGY: Patient is awake, alert, oriented x3. Meds: reviewed and reconciled ASSESSMENT AND PLAN: 1. COVID positive pneumonia. 2. Acute renal failure. 3. Leukopenia. 4. Thrombocytopenia. 5. Abnormal LFT. 6. Abnormal troponin levels. 7. GI and DVT prophylaxes. PLAN OF CARE: Current management. interval improvement in wbc counts Notes from Hem is reviewed I called and left a VM for the daughter on Mar 15 Alison Bruce MD Mar 17, 2020 11:54
[2020-03-17 12:00] VITALS: BP 132/70
[2020-03-17] MEDS ORDERED: Maintenance Dose:Remdesivir 100mg/NS 230ml x 4 Doses IV SCH ×2 (12:00)
--- NOTE | 2020-03-17 12:28 | Pulmonology Progress Note ---
Subjective ROS Limited/Unobtainable: No Interval Events: None new Constitutional: Reports: no symptoms HEENT: Repors: no symptoms Respiratory: Reports: no symptoms Cardiovascular: Reports: no symptoms Gastrointestinal/Abdominal: Reports: no symptoms Psychiatric: Reports: no symptoms Skin: Reports: no symptoms Musculoskeletal: Reports: no symptoms Allergies: Coded Allergies: No Known Allergies (Unverified , 03/12/20) Objective Last 24 Hour Vital Signs Date Time Temp Pulse Resp B/P (MAP) Pulse Ox O2 Delivery O2 Flow Rate FiO2 03/17/20 09:00 Nasal Cannula 3.0 03/17/20 08:00 57 03/17/20 08:00 98.1 91 18 132/69 (90) 97 03/17/20 04:00 53 03/17/20 04:00 98.2 57 17 124/81 (95) 97 03/17/20 00:00 98.1 54 18 144/84 (104) 96 03/17/20 00:00 47 03/16/20 21:00 Nasal Cannula 3.0 03/16/20 20:15 99 Nasal Cannula 3.0 32 03/16/20 20:00 98.3 54 17 128/72 (90) 99 03/16/20 20:00 51 03/16/20 16:00 54 03/16/20 16:00 97.7 80 21 131/71 (91) 98 03/16/20 13:15 97 Nasal Cannula 3.0 32 Intake and Output 03/16/20 03/17/20 19:00 07:00 Intake Total 120 ml 240 ml Balance 120 ml 240 ml Intake Oral 120 ml 240 ml # Voids 3 3 # Bowel Movements 1 1 Objective 03/17 saturating well on 3L NC 03/16 2D echo at the time of exam; NAD 03/15 PT eval at the time of exam General Appearance: no acute distress HEENT: normocephalic Respiratory: chest wall non-tender, lungs clear Cardiovascular: normal peripheral pulses Abdomen: normal bowel sounds Extremities: no cyanosis Laboratory Tests 03/17/20 06:25: White Blood Count 5.3#, Red Blood Count 4.33, Hemoglobin 14.1, Hematocrit 38.9, Mean Corpuscular Volume 90, Mean Corpuscular Hemoglobin 32.7H, Mean Corpuscular Hemoglobin Concent 36.3H, Red Cell Distribution Width 14.6, Platelet Count 177, Mean Platelet Volume 9.1, Neutrophils (%) (Auto) 78.8H, Lymphocytes (%) (Auto) 14.0L, Monocytes (%) (Auto) 6.5, Eosinophils (%) (Auto) 0.1, Basophils (%) (Auto) 0.5, Sodium Level 138, Potassium Level 3.3L, Chloride Level 104, Carbon Dioxide Level 25, Anion Gap 9, Blood Urea Nitrogen 19H, Creatinine 0.9, Estimat Glomerular Filtration Rate 59.7, Glucose Level 92, Calcium Level 7.7L, Total Bilirubin 0.5, Direct Bilirubin 0.2, Aspartate Amino Transf (AST/SGOT) 43H, Alanine Aminotransferase (ALT/SGPT) 36, Alkaline Phosphatase 51, Total Protein 5.9L, Albumin 2.7L, Globulin 3.2, Albumin/Globulin Ratio 0.8L Current Medications Medications (Trade) Dose Ordered Sig/Marcello Route PRN Reason Start Time Stop Time Status Last Admin Dose Admin Azithromycin 500 mg/Dextrose 275 ml @ 275 mls/hr Q24H IV 03/13/20 17:30 03/18/20 17:29 03/16/20 17:08 Ceftriaxone Sodium 1 gm/ Dextrose 55 ml @ 110 mls/hr Q24H IVPB 03/13/20 17:30 03/20/20 17:29 03/16/20 17:20 Dexamethasone Sodium Phosphate (Decadron 4mg/ml vial) 6 mg DAILY IVP 03/13/20 09:00 03/21/20 23:59 03/17/20 08:22 Enoxaparin Sodium (Lovenox) 30 mg DAILY SUBQ 03/15/20 09:00 06/13/20 08:59 03/17/20 08:23 Famotidine (Pepcid) 20 mg DAILY ORAL 03/13/20 09:00 06/11/20 08:59 03/17/20 08:22 Lorazepam (Ativan 2mg/ml 1ml) 0.5 mg Q4H PRN IV For Anxiety 03/12/20 23:45 03/19/20 23:44 Ondansetron HCl (Zofran) 4 mg Q6H PRN IVP Nausea & Vomiting 03/12/20 23:45 04/11/20 23:44 Polyethylene Glycol (Miralax) 17 gm DAILYPRN PRN ORAL Constipation 03/12/20 23:45 04/11/20 23:44 Remdesivir 100 mg/ Sodium Chloride 250 ml @ 250 mls/hr Q24H IV 03/17/20 12:00 03/17/20 13:30 Sodium Chloride 1,000 ml @ 50 mls/hr Q20H IV 03/13/20 22:45 04/12/20 22:44 03/17/20 05:43 Zolpidem Tartrate (Ambien) 5 mg HSPRN PRN ORAL Insomnia 03/12/20 23:45 03/19/20 23:44 Assessment/Plan Assessment/Plan 1. COVID-19 pneumonia with hypoxia. - On remdesivir and Decadron per ID - on ceftriaxone and azithromycin - Currently saturating well on low-flow oxygen. (3L/min) - Continue supplemental oxygen 2. Leukopenia. - interval improvement in WBC counts 3. Elevated D-dimer. - venous duplex US LE- neg - on Lovenox 4. Respiratory alkalosis. 5. CHF - s/p 2D echo The care of this patient was discussed with my supervising physician Time spent for this encounter was approximately 31 minutes The patient was seen and examined at bedside and all new and available data was reviewed in the patients chart. I agree with the above findings, impression, and plan. (Patient was seen earlier today. Signature timestamp does not reflect patient encounter time) Tan Rausch MD Mar 17, 2020 12:27 Agustín Marin MD Mar 17, 2020 13:41
--- NOTE | 2020-03-17 13:02 | Infectious Diseases Prog Note ---
Assessment/Plan Problems: (1) Suspected COVID-19 virus infection Assessment & Plan: With positive rapid test and high inflammatory markers , await PCR test to confirm, continue Remdisvir iv for 5 days and decadrone for 10 days , keep in enhanced droplets isolation . monitor inflammatory markers (2) Exposure to COVID-19 virus Assessment & Plan: most likely from her , keep in isolation, monitor PCR test to confirm , highly likely infected with COVID 19 (3) Pneumonia due to COVID-19 virus Assessment & Plan: continue Remdisvir with decadron , droplets isolation, aspiration precaution , sputum culture if she produces any (4) Acute respiratory failure due to COVID-19 Assessment & Plan: with hypoxemia , sating 90% on room air , continue high flow oxygen , attempt prone position if needed , remdisvir with decadron for now . monitor CXR and ABG Subjective Constitutional: Reports: no symptoms HEENT: Reports: no symptoms Respiratory: Reports: dry cough Breasts: Reports: no symptoms Cardiovascular: Reports: no symptoms Gastrointestinal/Abdominal: Reports: no symptoms Genitourinary: Reports: no symptoms Neurologic: Reports: weakness Psychiatric: Reports: no symptoms Skin: Reports: no symptoms Endocrine: Reports: no symptoms Hematologic: Reports: no symptoms Musculoskeletal: Reports: no symptoms Allergies: Coded Allergies: No Known Allergies (Unverified , 03/12/20) she is more awake and responsive, satting well on low flow oxygen, afebrile, no shortness of breath and no diarrhea Objective Last 24 Hour Vital Signs Date Time Temp Pulse Resp B/P (MAP) Pulse Ox O2 Delivery O2 Flow Rate FiO2 03/17/20 12:00 98.3 108 18 132/70 (90) 96 03/17/20 09:00 Nasal Cannula 3.0 03/17/20 08:00 57 03/17/20 08:00 98.1 91 18 132/69 (90) 97 03/17/20 04:00 53 03/17/20 04:00 98.2 57 17 124/81 (95) 97 03/17/20 00:00 98.1 54 18 144/84 (104) 96 03/17/20 00:00 47 03/16/20 21:00 Nasal Cannula 3.0 03/16/20 20:15 99 Nasal Cannula 3.0 32 03/16/20 20:00 98.3 54 17 128/72 (90) 99 03/16/20 20:00 51 03/16/20 16:00 54 03/16/20 16:00 97.7 80 21 131/71 (91) 98 03/16/20 13:15 97 Nasal Cannula 3.0 32 Height (Feet): 5 Height (Inches): 0.00 Weight (Pounds): 105 General Appearance: WD/WN, no acute distress HEENT: normocephalic, atraumatic, anicteric, mucous membranes moist, PERRL Respiratory/Chest: chest wall non-tender, no respiratory distress, no accessory muscle use, decreased breath sounds Cardiovascular: normal peripheral pulses, normal rate, regular rhythm, no gallop/murmur, no JVD Abdomen: normal bowel sounds, soft, non tender, no organomegaly, non distended, no mass, no scars Extremities: no cyanosis, no clubbing Skin: no rash, no lesions, no ulcers Neurologic/Psychiatric: alert, responsive Lymphatic: no groin adenopathy Laboratory Tests Test 03/17/20 06:25 White Blood Count 5.3 K/UL (4.8-10.8) # Red Blood Count 4.33 M/UL (4.20-5.40) Hemoglobin 14.1 G/DL (12.0-16.0) Hematocrit 38.9 % (37.0-47.0) Mean Corpuscular Volume 90 FL (80-99) Mean Corpuscular Hemoglobin 32.7 PG (27.0-31.0) H Mean Corpuscular Hemoglobin Concent 36.3 G/DL (32.0-36.0) H Red Cell Distribution Width 14.6 % (11.6-14.8) Platelet Count 177 K/UL (150-450) Mean Platelet Volume 9.1 FL (6.5-10.1) Neutrophils (%) (Auto) 78.8 % (45.0-75.0) H Lymphocytes (%) (Auto) 14.0 % (20.0-45.0) L Monocytes (%) (Auto) 6.5 % (1.0-10.0) Eosinophils (%) (Auto) 0.1 % (0.0-3.0) Basophils (%) (Auto) 0.5 % (0.0-2.0) Sodium Level 138 MMOL/L (136-145) Potassium Level 3.3 MMOL/L (3.5-5.1) L Chloride Level 104 MMOL/L (98-107) Carbon Dioxide Level 25 MMOL/L (21-32) Anion Gap 9 mmol/L (5-15) Blood Urea Nitrogen 19 mg/dL (7-18) H Creatinine 0.9 MG/DL (0.55-1.30) Estimat Glomerular Filtration Rate 59.7 mL/min (>60) Glucose Level 92 MG/DL (74-106) Calcium Level 7.7 MG/DL (8.5-10.1) L Total Bilirubin 0.5 MG/DL (0.2-1.0) Direct Bilirubin 0.2 MG/DL (0.0-0.3) Aspartate Amino Transf (AST/SGOT) 43 U/L (15-37) H Alanine Aminotransferase (ALT/SGPT) 36 U/L (12-78) Alkaline Phosphatase 51 U/L (46-116) Total Protein 5.9 G/DL (6.4-8.2) L Albumin 2.7 G/DL (3.4-5.0) L Globulin 3.2 g/dL Albumin/Globulin Ratio 0.8 (1.0-2.7) L Current Medications Medications (Trade) Dose Ordered Sig/Marcello Route PRN Reason Start Time Stop Time Status Last Admin Dose Admin Azithromycin 500 mg/Dextrose 275 ml @ 275 mls/hr Q24H IV 03/13/20 17:30 03/18/20 17:29 03/16/20 17:08 Ceftriaxone Sodium 1 gm/ Dextrose 55 ml @ 110 mls/hr Q24H IVPB 03/13/20 17:30 03/20/20 17:29 03/16/20 17:20 Dexamethasone Sodium Phosphate (Decadron 4mg/ml vial) 6 mg DAILY IVP 03/13/20 09:00 03/21/20 23:59 03/17/20 08:22 Enoxaparin Sodium (Lovenox) 30 mg DAILY SUBQ 03/15/20 09:00 06/13/20 08:59 03/17/20 08:23 Famotidine (Pepcid) 20 mg DAILY ORAL 03/13/20 09:00 06/11/20 08:59 03/17/20 08:22 Lorazepam (Ativan 2mg/ml 1ml) 0.5 mg Q4H PRN IV For Anxiety 03/12/20 23:45 03/19/20 23:44 Ondansetron HCl (Zofran) 4 mg Q6H PRN IVP Nausea & Vomiting 03/12/20 23:45 04/11/20 23:44 Polyethylene Glycol (Miralax) 17 gm DAILYPRN PRN ORAL Constipation 03/12/20 23:45 04/11/20 23:44 Remdesivir 100 mg/ Sodium Chloride 250 ml @ 250 mls/hr Q24H IV 03/17/20 12:00 03/17/20 13:30 03/17/20 12:41 Sodium Chloride 1,000 ml @ 50 mls/hr Q20H IV 03/13/20 22:45 04/12/20 22:44 03/17/20 05:43 Zolpidem Tartrate (Ambien) 5 mg HSPRN PRN ORAL Insomnia 03/12/20 23:45 03/19/20 23:44 Juice Moreno M.D. Mar 17, 2020 13:02
[2020-03-17 16:00] VITALS: BP 112/83
[2020-03-17] MEDS: cefTRIAXone 1 GM in D5W 55 ML IVPB SCH (17:44)
[2020-03-17] MEDS: Azithromycin 500 MG in D5W 275 ML IV SCH (18:16)
[2020-03-17 20:00] VITALS: BP 133/72
--- NOTE | 2020-03-17 21:19 | Cardiology Progress Note ---
Assessment/Plan Status Narrative Assessment/Plan 1. COVID-19 viral PNA 2. SOB/ZAPIEN 3. HTN 4. Sinus bradycardia - improved 5. CHF - echo pending 6. Troponin leak - 0.07 top 0.04 denies chest pain Pt seen today by Dr. Quevedo. Tx for viral PNA per ID. Echo done, result pending. repeat troponin negative. SR, HR and SBP normal territory Subjective ROS Limited/Unobtainable: Yes Cardiovascular: Reports: no symptoms Respiratory: Reports: shortness of breath Gastrointestinal/Abdominal: Reports: poor appetite Genitourinary: Reports: no symptoms Subjective Flu like symptoms, resting comfortably Objective Last 24 Hour Vital Signs Date Time Temp Pulse Resp B/P (MAP) Pulse Ox O2 Delivery O2 Flow Rate FiO2 03/17/20 20:00 98.1 61 18 133/72 (92) 95 03/17/20 16:00 98.4 93 18 112/83 (93) 91 03/17/20 16:00 65 03/17/20 12:00 51 03/17/20 12:00 98.3 108 18 132/70 (90) 96 03/17/20 09:00 Nasal Cannula 3.0 03/17/20 08:00 57 03/17/20 08:00 98.1 91 18 132/69 (90) 97 03/17/20 07:30 97 Nasal Cannula 3.0 32 03/17/20 04:00 53 03/17/20 04:00 98.2 57 17 124/81 (95) 97 03/17/20 00:00 98.1 54 18 144/84 (104) 96 03/17/20 00:00 47 General Appearance: no apparent distress EENT: PERRL/EOMI Neck: no JVD Rhythm: NSR Cardiovascular: regular rhythm Respiratory/Chest: no respiratory distress Intake and Output 03/16/20 03/17/20 19:00 07:00 Intake Total 120 ml 240 ml Balance 120 ml 240 ml Intake Oral 120 ml 240 ml # Voids 3 3 # Bowel Movements 1 1 Laboratory Tests Test 03/17/20 06:25 White Blood Count 5.3 K/UL (4.8-10.8) # Red Blood Count 4.33 M/UL (4.20-5.40) Hemoglobin 14.1 G/DL (12.0-16.0) Hematocrit 38.9 % (37.0-47.0) Mean Corpuscular Volume 90 FL (80-99) Mean Corpuscular Hemoglobin 32.7 PG (27.0-31.0) H Mean Corpuscular Hemoglobin Concent 36.3 G/DL (32.0-36.0) H Red Cell Distribution Width 14.6 % (11.6-14.8) Platelet Count 177 K/UL (150-450) Mean Platelet Volume 9.1 FL (6.5-10.1) Neutrophils (%) (Auto) 78.8 % (45.0-75.0) H Lymphocytes (%) (Auto) 14.0 % (20.0-45.0) L Monocytes (%) (Auto) 6.5 % (1.0-10.0) Eosinophils (%) (Auto) 0.1 % (0.0-3.0) Basophils (%) (Auto) 0.5 % (0.0-2.0) Sodium Level 138 MMOL/L (136-145) Potassium Level 3.3 MMOL/L (3.5-5.1) L Chloride Level 104 MMOL/L (98-107) Carbon Dioxide Level 25 MMOL/L (21-32) Anion Gap 9 mmol/L (5-15) Blood Urea Nitrogen 19 mg/dL (7-18) H Creatinine 0.9 MG/DL (0.55-1.30) Estimat Glomerular Filtration Rate 59.7 mL/min (>60) Glucose Level 92 MG/DL (74-106) Calcium Level 7.7 MG/DL (8.5-10.1) L Total Bilirubin 0.5 MG/DL (0.2-1.0) Direct Bilirubin 0.2 MG/DL (0.0-0.3) Aspartate Amino Transf (AST/SGOT) 43 U/L (15-37) H Alanine Aminotransferase (ALT/SGPT) 36 U/L (12-78) Alkaline Phosphatase 51 U/L (46-116) Total Protein 5.9 G/DL (6.4-8.2) L Albumin 2.7 G/DL (3.4-5.0) L Globulin 3.2 g/dL Albumin/Globulin Ratio 0.8 (1.0-2.7) L Radha Guzman PA-C Mar 17, 2020 21:19
[2020-03-18] VITALS: BP 129/81
[2020-03-18 04:00] VITALS: BP 115/75
[2020-03-18 06:52] LABS: BASOPHILS % (AUTO) 0.9 % (0.0-2.0); EOSINOPHILS % (AUTO) 0.1 % (0.0-3.0); HEMATOCRIT 40.3 % (37.0-47.0); HEMOGLOBIN 14.1 G/DL (12.0-16.0); LYMPHOCYTES % (AUTO) 11.2 % (20.0-45.0); MEAN CORPUSCULAR VOLUME 93 FL (80-99); MONOCYTES % (AUTO) 6.7 % (1.0-10.0); NEUTROPHILS % (AUTO) 81.1 % (45.0-75.0); PLATELET COUNT 193 K/UL (150-450); RED BLOOD COUNT 4.32 M/UL (4.20-5.40); RED CELL DISTRIBUTION WIDTH 12.8 % (11.6-14.8); WHITE BLOOD COUNT 5.2 K/UL (4.8-10.8)
[2020-03-18 07:44] LABS: ALANINE AMINOTRANSFERASE 32 U/L (12-78); ALBUMIN 2.7 G/DL (3.4-5.0); ALKALINE PHOSPHATASE 49 U/L (46-116); ANION GAP 7 mmol/L (5-15); ASPARTATE AMINO TRANSFERASE 33 U/L (15-37); BILIRUBIN,DIRECT < 0.1 MG/DL (0.0-0.3); BILIRUBIN,TOTAL 0.5 MG/DL (0.2-1.0); BLOOD UREA NITROGEN 16 mg/dL (7-18); CALCIUM 8.1 MG/DL (8.5-10.1); CARBON DIOXIDE 28 MMOL/L (21-32); CHLORIDE 105 MMOL/L (98-107); POTASSIUM 3.6 MMOL/L (3.5-5.1); SODIUM 140 MMOL/L (136-145)
[2020-03-18 07:58] LABS: CREATININE 0.9 MG/DL (0.55-1.30)
[2020-03-18 08:00] VITALS: BP 135/73
--- NOTE | 2020-03-18 08:52 | Hematology/Onc Progress Note ---
Assessment/Plan Assessment/Plan 1. Thrombocytopenia is very likely related to COVID-19 pneumonia++++++. --> On remdesivir and Decadron per Dr. Moreno. --> On ceftriaxone and azithromycin per Dr. Bruce. --> Currently saturating well on low-flow oxygen. --> per pulm and id recs --> hep and hiv is neg --> us abd shows fatty liver disease] --> plt 147-->193 2. Leukopenia due to covid19++ --> smear is noted 3. Elevated D-dimer. --> duplex lower legs neg 4. Respiratory alkalosis. --> per pulm 5. Dvt ppx lovenox sq Appreciate consultation and waldemar RN Subjective Constitutional: Denies: no symptoms, chills, fever, malaise, weakness, other HEENT: Denies: no symptoms, eye pain, blurred vision, tearing, double vision, ear pain, ear discharge, nose pain, nose congestion, throat pain, throat swelling, mouth pain, mouth swelling, other Respiratory: Denies: no symptoms, cough, shortness of breath, SOB with excerti on, SOB at rest, sputum, wheezing, other Gastrointestinal/Abdominal: Denies: no symptoms, abdomen distended, abdominal pain, black stools, tarry stools, blood in stool, constipated, diarrhea, difficulty swallowing, nausea, poor appetite, poor fluid intake, rectal bleeding, vomiting, other Neurologic/Psychiatric: Denies: no symptoms, anxiety, depressed, emotional problems, headache, numbness, paresthesia, pre-existing deficit, seizure, tingling, tremors, weakness, other Endocrine: Denies: no symptoms, excessive sweating, flushing, intolerance to cold, intolerance to heat, increased hunger, increased thirst, increased urine, unexplained weight gain, unexplained weight loss, other Allergies: Coded Allergies: No Known Allergies (Unverified , 03/12/20) Subjective 03/16 asymptomatic, on 2lnc, no bleeding, meds noted 03/17 on 2lnc, no bleeding, wbc 2.4, labs reviewed, meds noted 03/18 remains on 2lnc, on lovenox, ctx and dex, labs noted Objective Objective Current Medications Medications (Trade) Dose Ordered Sig/Marcello Route PRN Reason Start Time Stop Time Status Last Admin Dose Admin Azithromycin 500 mg/Dextrose 275 ml @ 275 mls/hr Q24H IV 03/13/20 17:30 03/18/20 17:29 03/17/20 18:16 Ceftriaxone Sodium 1 gm/ Dextrose 55 ml @ 110 mls/hr Q24H IVPB 03/13/20 17:30 03/20/20 17:29 03/17/20 17:44 Dexamethasone Sodium Phosphate (Decadron 4mg/ml vial) 6 mg DAILY IVP 03/13/20 09:00 03/21/20 23:59 03/17/20 08:22 Enoxaparin Sodium (Lovenox) 30 mg DAILY SUBQ 03/15/20 09:00 06/13/20 08:59 03/17/20 08:23 Famotidine (Pepcid) 20 mg DAILY ORAL 03/13/20 09:00 06/11/20 08:59 03/17/20 08:22 Lorazepam (Ativan 2mg/ml 1ml) 0.5 mg Q4H PRN IV For Anxiety 03/12/20 23:45 03/19/20 23:44 Ondansetron HCl (Zofran) 4 mg Q6H PRN IVP Nausea & Vomiting 03/12/20 23:45 04/11/20 23:44 Polyethylene Glycol (Miralax) 17 gm DAILYPRN PRN ORAL Constipation 03/12/20 23:45 04/11/20 23:44 Sodium Chloride 1,000 ml @ 50 mls/hr Q20H IV 03/13/20 22:45 04/12/20 22:44 03/18/20 02:56 Zolpidem Tartrate (Ambien) 5 mg HSPRN PRN ORAL Insomnia 03/12/20 23:45 03/19/20 23:44 Last 24 Hour Vital Signs Date Time Temp Pulse Resp B/P (MAP) Pulse Ox O2 Delivery O2 Flow Rate FiO2 03/18/20 04:00 98.1 52 19 115/75 (88) 96 03/18/20 04:00 52 03/18/20 00:00 98.4 59 18 129/81 (97) 97 03/18/20 00:00 55 03/17/20 21:00 Nasal Cannula 3.0 03/17/20 20:00 52 12/24/20 20:00 98.1 61 18 133/72 (92) 95 03/17/20 19:15 96 Nasal Cannula 3.0 32 03/17/20 16:00 98.4 93 18 112/83 (93) 91 03/17/20 16:00 65 03/17/20 12:00 51 03/17/20 12:00 98.3 108 18 132/70 (90) 96 03/17/20 09:00 Nasal Cannula 3.0 03/17/20 08:00 57 03/17/20 08:00 98.1 91 18 132/69 (90) 97 03/17/20 07:30 97 Nasal Cannula 3.0 32 03/17/20 04:00 53 03/17/20 04:00 98.2 57 17 124/81 (95) 97 03/17/20 00:00 98.1 54 18 144/84 (104) 96 03/17/20 00:00 47 03/16/20 21:00 Nasal Cannula 3.0 03/16/20 20:15 99 Nasal Cannula 3.0 32 03/16/20 20:00 98.3 54 17 128/72 (90) 99 03/16/20 20:00 51 03/16/20 16:00 54 03/16/20 16:00 97.7 80 21 131/71 (91) 98 03/16/20 13:15 97 Nasal Cannula 3.0 32 03/16/20 12:00 96.7 71 20 128/61 (83) 97 03/16/20 12:00 53 03/16/20 09:00 Nasal Cannula 3.0 Intake and Output 03/17/20 03/18/20 19:00 07:00 Intake Total 120 ml 110 ml Output Total 650 ml Balance -530 ml 110 ml Intake Oral 120 ml 110 ml Output Urine Total 650 ml # Voids 4 # Bowel Movements 1 1 Labs Test 03/15/20 18:30 03/16/20 06:15 03/17/20 06:25 03/18/20 04:00 Troponin I 0.040 ng/mL (0.000-0.056) White Blood Count 2.4 K/UL (4.8-10.8) 5.3 K/UL (4.8-10.8) 5.2 K/UL (4.8-10.8) Red Blood Count 4.32 M/UL (4.20-5.40) 4.33 M/UL (4.20-5.40) 4.32 M/UL (4.20-5.40) Hemoglobin 14.3 G/DL (12.0-16.0) 14.1 G/DL (12.0-16.0) 14.1 G/DL (12.0-16.0) Hematocrit 41.0 % (37.0-47.0) 38.9 % (37.0-47.0) 40.3 % (37.0-47.0) Mean Corpuscular Volume 95 FL (80-99) 90 FL (80-99) 93 FL (80-99) Mean Corpuscular Hemoglobin 33.0 PG (27.0-31.0) 32.7 PG (27.0-31.0) 32.8 PG (27.0-31.0) Mean Corpuscular Hemoglobin Concent 34.8 G/DL (32.0-36.0) 36.3 G/DL (32.0-36.0) 35.1 G/DL (32.0-36.0) Red Cell Distribution Width 13.1 % (11.6-14.8) 14.6 % (11.6-14.8) 12.8 % (11.6-14.8) Platelet Count 147 K/UL (150-450) 177 K/UL (150-450) 193 K/UL (150-450) Mean Platelet Volume 8.7 FL (6.5-10.1) 9.1 FL (6.5-10.1) 8.9 FL (6.5-10.1) Neutrophils (%) (Auto) % (45.0-75.0) 78.8 % (45.0-75.0) 81.1 % (45.0-75.0) Lymphocytes (%) (Auto) % (20.0-45.0) 14.0 % (20.0-45.0) 11.2 % (20.0-45.0) Monocytes (%) (Auto) % (1.0-10.0) 6.5 % (1.0-10.0) 6.7 % (1.0-10.0) Eosinophils (%) (Auto) % (0.0-3.0) 0.1 % (0.0-3.0) 0.1 % (0.0-3.0) Basophils (%) (Auto) % (0.0-2.0) 0.5 % (0.0-2.0) 0.9 % (0.0-2.0) Differential Total Cells Counted 100 Neutrophils % (Manual) 70 % (45-75) Lymphocytes % (Manual) 17 % (20-45) Monocytes % (Manual) 12 % (1-10) Eosinophils % (Manual) 1 % (0-3) Basophils % (Manual) 0 % (0-2) Band Neutrophils 0 % (0-8) Platelet Estimate Decreased Platelet Morphology Normal Red Blood Cell Morphology Normal Sodium Level 141 MMOL/L (136-145) 138 MMOL/L (136-145) 140 MMOL/L (136-145) Potassium Level 3.5 MMOL/L (3.5-5.1) 3.3 MMOL/L (3.5-5.1) 3.6 MMOL/L (3.5-5.1) Chloride Level 108 MMOL/L (98-107) 104 MMOL/L (98-107) 105 MMOL/L (98-107) Carbon Dioxide Level 25 MMOL/L (21-32) 25 MMOL/L (21-32) 28 MMOL/L (21-32) Anion Gap 8 mmol/L (5-15) 9 mmol/L (5-15) 7 mmol/L (5-15) Blood Urea Nitrogen 23 mg/dL (7-18) 19 mg/dL (7-18) 16 mg/dL (7-18) Creatinine 0.9 MG/DL (0.55-1.30) 0.9 MG/DL (0.55-1.30) 0.9 MG/DL (0.55-1.30) Estimat Glomerular Filtration Rate 59.7 mL/min (>60) 59.7 mL/min (>60) 59.7 mL/min (>60) Glucose Level 101 MG/DL (74-106) 92 MG/DL (74-106) 98 MG/DL (74-106) Calcium Level 7.6 MG/DL (8.5-10.1) 7.7 MG/DL (8.5-10.1) 8.1 MG/DL (8.5-10.1) Total Bilirubin 0.4 MG/DL (0.2-1.0) 0.5 MG/DL (0.2-1.0) 0.5 MG/DL (0.2-1.0) Direct Bilirubin 0.1 MG/DL (0.0-0.3) 0.2 MG/DL (0.0-0.3) < 0.1 MG/DL (0.0-0.3) Aspartate Amino Transf (AST/SGOT) 46 U/L (15-37) 43 U/L (15-37) 33 U/L (15-37) Alanine Aminotransferase (ALT/SGPT) 37 U/L (12-78) 36 U/L (12-78) 32 U/L (12-78) Alkaline Phosphatase 46 U/L (46-116) 51 U/L (46-116) 49 U/L (46-116) Total Protein 5.9 G/DL (6.4-8.2) 5.9 G/DL (6.4-8.2) 5.8 G/DL (6.4-8.2) Albumin 2.6 G/DL (3.4-5.0) 2.7 G/DL (3.4-5.0) 2.7 G/DL (3.4-5.0) Globulin 3.3 g/dL 3.2 g/dL 3.1 g/dL Albumin/Globulin Ratio 0.8 (1.0-2.7) 0.8 (1.0-2.7) Height (Feet): 5 Height (Inches): 0.00 Weight (Pounds): 105 Objective Physical Exam Gen: Nad Pulm: ctab, no cwr CV: rrr, no mgr Abd: soft, nt, nd Ext: no cce Omar Lynch MD Mar 18, 2020 08:52
[2020-03-18] MEDS: Enoxaparin 30mg Inj SUBQ SCH (09:43)
--- NOTE | 2020-03-18 10:36 | Pulmonology Progress Note ---
Subjective ROS Limited/Unobtainable: Yes Interval Events: None new Constitutional: Reports: no symptoms HEENT: Repors: no symptoms Respiratory: Reports: no symptoms Cardiovascular: Reports: no symptoms Gastrointestinal/Abdominal: Reports: no symptoms Psychiatric: Reports: no symptoms Skin: Reports: no symptoms Musculoskeletal: Reports: no symptoms Allergies: Coded Allergies: No Known Allergies (Unverified , 03/12/20) Objective Last 24 Hour Vital Signs Date Time Temp Pulse Resp B/P (MAP) Pulse Ox O2 Delivery O2 Flow Rate FiO2 03/18/20 04:00 98.1 52 19 115/75 (88) 96 03/18/20 04:00 52 03/18/20 00:00 98.4 59 18 129/81 (97) 97 03/18/20 00:00 55 03/17/20 21:00 Nasal Cannula 3.0 03/17/20 20:00 52 03/17/20 20:00 98.1 61 18 133/72 (92) 95 03/17/20 19:15 96 Nasal Cannula 3.0 32 03/17/20 16:00 98.4 93 18 112/83 (93) 91 03/17/20 16:00 65 03/17/20 12:00 51 03/17/20 12:00 98.3 108 18 132/70 (90) 96 Intake and Output 03/17/20 03/18/20 19:00 07:00 Intake Total 120 ml 110 ml Output Total 650 ml Balance -530 ml 110 ml Intake Oral 120 ml 110 ml Output Urine Total 650 ml # Voids 4 # Bowel Movements 1 1 Objective 03/18 saturating well on 2 L NC 03/17 saturating well on 3L NC 03/16 2D echo at the time of exam; NAD 03/15 PT eval at the time of exam General Appearance: no acute distress HEENT: normocephalic Respiratory: chest wall non-tender, lungs clear Cardiovascular: normal peripheral pulses Abdomen: normal bowel sounds Extremities: no cyanosis Laboratory Tests 03/18/20 04:00: White Blood Count 5.2, Red Blood Count 4.32, Hemoglobin 14.1, Hematocrit 40.3, Mean Corpuscular Volume 93, Mean Corpuscular Hemoglobin 32.8H, Mean Corpuscular Hemoglobin Concent 35.1, Red Cell Distribution Width 12.8, Platelet Count 193, Mean Platelet Volume 8.9, Neutrophils (%) (Auto) 81.1H, Lymphocytes (%) (Auto) 11.2L, Monocytes (%) (Auto) 6.7, Eosinophils (%) (Auto) 0.1, Basophils (%) (Auto) 0.9, Sodium Level 140, Potassium Level 3.6, Chloride Level 105, Carbon Dioxide Level 28, Anion Gap 7, Blood Urea Nitrogen 16, Creatinine 0.9, Estimat Glomerular Filtration Rate 59.7, Glucose Level 98, Calcium Level 8.1L, Total Bilirubin 0.5, Direct Bilirubin < 0.1, Aspartate Amino Transf (AST/SGOT) 33, Alanine Aminotransferase (ALT/SGPT) 32, Alkaline Phosphatase 49, Total Protein 5.8L, Albumin 2.7L, Globulin 3.1 Current Medications Medications (Trade) Dose Ordered Sig/Marcello Route PRN Reason Start Time Stop Time Status Last Admin Dose Admin Azithromycin 500 mg/Dextrose 275 ml @ 275 mls/hr Q24H IV 03/13/20 17:30 03/18/20 17:29 03/17/20 18:16 Ceftriaxone Sodium 1 gm/ Dextrose 55 ml @ 110 mls/hr Q24H IVPB 03/13/20 17:30 03/20/20 17:29 03/17/20 17:44 Dexamethasone Sodium Phosphate (Decadron 4mg/ml vial) 6 mg DAILY IVP 03/13/20 09:00 03/21/20 23:59 03/18/20 09:42 Enoxaparin Sodium (Lovenox) 30 mg DAILY SUBQ 03/15/20 09:00 06/13/20 08:59 03/18/20 09:43 Famotidine (Pepcid) 20 mg DAILY ORAL 03/13/20 09:00 06/11/20 08:59 03/18/20 09:41 Lorazepam (Ativan 2mg/ml 1ml) 0.5 mg Q4H PRN IV For Anxiety 03/12/20 23:45 03/19/20 23:44 Ondansetron HCl (Zofran) 4 mg Q6H PRN IVP Nausea & Vomiting 03/12/20 23:45 04/11/20 23:44 Polyethylene Glycol (Miralax) 17 gm DAILYPRN PRN ORAL Constipation 03/12/20 23:45 04/11/20 23:44 Sodium Chloride 1,000 ml @ 50 mls/hr Q20H IV 03/13/20 22:45 04/12/20 22:44 03/18/20 02:56 Zolpidem Tartrate (Ambien) 5 mg HSPRN PRN ORAL Insomnia 03/12/20 23:45 03/19/20 23:44 Assessment/Plan Assessment/Plan 1. COVID-19 pneumonia with hypoxia. - now off remdesivir - on Decadron per ID - on ceftriaxone and azithromycin - Currently saturating well on low-flow oxygen. (2L/min) - wean down oxygen as tolerated 2. Leukopenia. - improved 3. Elevated D-dimer. - venous duplex US LE- neg - on Lovenox 4. Respiratory alkalosis. 5. CHF - s/p 2D echo; EF 60% - per cardio The care of this patient was discussed with my supervising physician Time spent for this encounter was approximately 31 minutes Tan Garcia Mar 18, 2020 10:36 Agustín Marin MD Mar 18, 2020 11:43
[2020-03-18 12:00] VITALS: BP 136/81
[2020-03-18 16:00] VITALS: BP 108/66
--- NOTE | 2020-03-18 17:27 | Infectious Diseases Prog Note ---
Assessment/Plan Problems: (1) Suspected COVID-19 virus infection Assessment & Plan: With positive rapid test and high inflammatory markers , await PCR test to confirm, continue Remdisvir iv for 5 days and decadrone for 10 days , keep in enhanced droplets isolation . monitor inflammatory markers (2) Exposure to COVID-19 virus Assessment & Plan: most likely from her , keep in isolation, monitor PCR test to confirm , highly likely infected with COVID 19 (3) Pneumonia due to COVID-19 virus Assessment & Plan: continue Remdisvir with decadron , droplets isolation, aspiration precaution , sputum culture if she produces any (4) Acute respiratory failure due to COVID-19 Assessment & Plan: with hypoxemia , sating 90% on room air , continue high flow oxygen , attempt prone position if needed , remdisvir with decadron for now . monitor CXR and ABG Subjective Constitutional: Reports: no symptoms HEENT: Reports: no symptoms Respiratory: Reports: no symptoms Breasts: Reports: no symptoms Cardiovascular: Reports: no symptoms Gastrointestinal/Abdominal: Reports: no symptoms Genitourinary: Reports: no symptoms Neurologic: Reports: no symptoms Psychiatric: Reports: no symptoms Skin: Reports: no symptoms Endocrine: Reports: no symptoms Hematologic: Reports: no symptoms Musculoskeletal: Reports: no symptoms Allergies: Coded Allergies: No Known Allergies (Unverified , 03/12/20) she is more awake and responsive, satting well on low flow oxygen, afebrile, no shortness of breath and no diarrhea Objective Last 24 Hour Vital Signs Date Time Temp Pulse Resp B/P (MAP) Pulse Ox O2 Delivery O2 Flow Rate FiO2 03/18/20 16:00 70 03/18/20 16:00 98.2 72 18 108/66 (80) 97 03/18/20 12:00 98.4 70 18 136/81 (99) 96 03/18/20 12:00 58 03/18/20 09:00 Nasal Cannula 3.0 03/18/20 08:00 61 03/18/20 08:00 98.0 72 18 135/73 (93) 96 03/18/20 04:00 98.1 52 19 115/75 (88) 96 03/18/20 04:00 52 03/18/20 00:00 98.4 59 18 129/81 (97) 97 03/18/20 00:00 55 03/17/20 21:00 Nasal Cannula 3.0 03/17/20 20:00 52 03/17/20 20:00 98.1 61 18 133/72 (92) 95 03/17/20 19:15 96 Nasal Cannula 3.0 32 Height (Feet): 5 Height (Inches): 0.00 Weight (Pounds): 105 General Appearance: WD/WN, no acute distress HEENT: normocephalic, atraumatic, anicteric, mucous membranes moist, PERRL Respiratory/Chest: chest wall non-tender, lungs clear, normal breath sounds, no respiratory distress, no accessory muscle use Cardiovascular: normal peripheral pulses, normal rate, regular rhythm, no gallop/murmur, no JVD Abdomen: normal bowel sounds, soft, non tender, no organomegaly, non distended, no mass, no scars Genitourinary: normal external genitalia Extremities: no cyanosis, no clubbing Skin: no rash, no lesions 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, alert, responsive Lymphatic: no neck adenopathy, no groin adenopathy Musculoskeletal: normal muscle bulk, no effusion Laboratory Tests Test 03/18/20 04:00 White Blood Count 5.2 K/UL (4.8-10.8) Red Blood Count 4.32 M/UL (4.20-5.40) Hemoglobin 14.1 G/DL (12.0-16.0) Hematocrit 40.3 % (37.0-47.0) Mean Corpuscular Volume 93 FL (80-99) Mean Corpuscular Hemoglobin 32.8 PG (27.0-31.0) H Mean Corpuscular Hemoglobin Concent 35.1 G/DL (32.0-36.0) Red Cell Distribution Width 12.8 % (11.6-14.8) Platelet Count 193 K/UL (150-450) Mean Platelet Volume 8.9 FL (6.5-10.1) Neutrophils (%) (Auto) 81.1 % (45.0-75.0) H Lymphocytes (%) (Auto) 11.2 % (20.0-45.0) L Monocytes (%) (Auto) 6.7 % (1.0-10.0) Eosinophils (%) (Auto) 0.1 % (0.0-3.0) Basophils (%) (Auto) 0.9 % (0.0-2.0) Sodium Level 140 MMOL/L (136-145) Potassium Level 3.6 MMOL/L (3.5-5.1) Chloride Level 105 MMOL/L (98-107) Carbon Dioxide Level 28 MMOL/L (21-32) Anion Gap 7 mmol/L (5-15) Blood Urea Nitrogen 16 mg/dL (7-18) Creatinine 0.9 MG/DL (0.55-1.30) Estimat Glomerular Filtration Rate 59.7 mL/min (>60) Glucose Level 98 MG/DL (74-106) Calcium Level 8.1 MG/DL (8.5-10.1) L Total Bilirubin 0.5 MG/DL (0.2-1.0) Direct Bilirubin < 0.1 MG/DL (0.0-0.3) Aspartate Amino Transf (AST/SGOT) 33 U/L (15-37) Alanine Aminotransferase (ALT/SGPT) 32 U/L (12-78) Alkaline Phosphatase 49 U/L (46-116) Total Protein 5.8 G/DL (6.4-8.2) L Albumin 2.7 G/DL (3.4-5.0) L Globulin 3.1 g/dL Current Medications Medications (Trade) Dose Ordered Sig/Marcello Route PRN Reason Start Time Stop Time Status Last Admin Dose Admin Acetaminophen (Tylenol) 650 mg Q6H PRN ORAL For Headache 03/18/20 12:30 04/17/20 12:29 03/18/20 12:26 Azithromycin 500 mg/Dextrose 275 ml @ 275 mls/hr Q24H IV 03/13/20 17:30 03/18/20 17:29 03/17/20 18:16 Ceftriaxone Sodium 1 gm/ Dextrose 55 ml @ 110 mls/hr Q24H IVPB 03/13/20 17:30 03/20/20 17:29 03/17/20 17:44 Dexamethasone Sodium Phosphate (Decadron 4mg/ml vial) 6 mg DAILY IVP 03/13/20 09:00 03/21/20 23:59 03/18/20 09:42 Enoxaparin Sodium (Lovenox) 30 mg DAILY SUBQ 03/15/20 09:00 06/13/20 08:59 03/18/20 09:43 Famotidine (Pepcid) 20 mg DAILY ORAL 03/13/20 09:00 06/11/20 08:59 03/18/20 09:41 Lorazepam (Ativan 2mg/ml 1ml) 0.5 mg Q4H PRN IV For Anxiety 03/12/20 23:45 03/19/20 23:44 Ondansetron HCl (Zofran) 4 mg Q6H PRN IVP Nausea & Vomiting 03/12/20 23:45 04/11/20 23:44 Polyethylene Glycol (Miralax) 17 gm DAILYPRN PRN ORAL Constipation 03/12/20 23:45 04/11/20 23:44 Sodium Chloride 1,000 ml @ 50 mls/hr Q20H IV 03/13/20 22:45 04/12/20 22:44 03/18/20 02:56 Zolpidem Tartrate (Ambien) 5 mg HSPRN PRN ORAL Insomnia 03/12/20 23:45 03/19/20 23:44 Juice Moreno M.D. Mar 18, 2020 17:27
[2020-03-18] MEDS: cefTRIAXone 1 GM in D5W 55 ML IVPB SCH (17:39)
[2020-03-18 21:00] VITALS: BP 128/75
--- NOTE | 2020-03-18 21:18 | General Progress Note ---
Subjective Allergies: Coded Allergies: No Known Allergies (Unverified , 03/12/20) Objective Last 24 Hour Vital Signs Date Time Temp Pulse Resp B/P (MAP) Pulse Ox O2 Delivery O2 Flow Rate FiO2 03/18/20 21:00 Nasal Cannula 3.0 03/18/20 21:00 98.2 72 18 128/75 (92) 97 03/18/20 20:00 54 03/18/20 16:00 70 03/18/20 16:00 98.2 72 18 108/66 (80) 97 03/18/20 12:00 98.4 70 18 136/81 (99) 96 03/18/20 12:00 58 03/18/20 09:00 Nasal Cannula 3.0 03/18/20 08:00 61 03/18/20 08:00 98.0 72 18 135/73 (93) 96 03/18/20 04:00 98.1 52 19 115/75 (88) 96 03/18/20 04:00 52 03/18/20 00:00 98.4 59 18 129/81 (97) 97 03/18/20 00:00 55 Intake and Output 03/17/20 03/18/20 19:00 07:00 Intake Total 120 ml 160 ml Output Total 650 ml Balance -530 ml 160 ml Intake Oral 120 ml 110 ml IV Total 50 ml Output Urine Total 650 ml # Voids 4 # Bowel Movements 1 1 Laboratory Tests 03/18/20 04:00: White Blood Count 5.2, Red Blood Count 4.32, Hemoglobin 14.1, Hematocrit 40.3, Mean Corpuscular Volume 93, Mean Corpuscular Hemoglobin 32.8H, Mean Corpuscular Hemoglobin Concent 35.1, Red Cell Distribution Width 12.8, Platelet Count 193, Mean Platelet Volume 8.9, Neutrophils (%) (Auto) 81.1H, Lymphocytes (%) (Auto) 11.2L, Monocytes (%) (Auto) 6.7, Eosinophils (%) (Auto) 0.1, Basophils (%) (Auto) 0.9, Sodium Level 140, Potassium Level 3.6, Chloride Level 105, Carbon Dioxide Level 28, Anion Gap 7, Blood Urea Nitrogen 16, Creatinine 0.9, Estimat Glomerular Filtration Rate 59.7, Glucose Level 98, Calcium Level 8.1L, Total Bilirubin 0.5, Direct Bilirubin < 0.1, Aspartate Amino Transf (AST/SGOT) 33, Alanine Aminotransferase (ALT/SGPT) 32, Alkaline Phosphatase 49, Total Protein 5.8L, Albumin 2.7L, Globulin 3.1 Height (Feet): 5 Height (Inches): 0.00 Weight (Pounds): 105 Assessment/Plan Status: stable Assessment/Plan: S, O: seems comfortable, PHYSICAL EXAMINATION:HEAD AND NECK: Atraumatic and normocephalic. CHEST: Diffuse bronchial breathing sounds. HEART: S1, S2. Regular rate and rhythm. ABDOMEN: Soft. No organomegaly. MUSCULOSKELETAL: No gross lateralized motor deficit. NEUROLOGY: Patient is awake, alert, oriented x3. Meds: reviewed and reconciled ASSESSMENT AND PLAN: 1. COVID positive pneumonia. 2. Acute renal failure. 3. Leukopenia. 4. Thrombocytopenia. 5. Abnormal LFT. 6. Abnormal troponin levels. 7. GI and DVT prophylaxes. PLAN OF CARE: Current management. interval improvement in wbc counts Notes from Hem is reviewed I called and left a VM for the daughter on Mar 15 current management Alison Bruce MD Mar 18, 2020 21:18
[2020-03-19] VITALS: BP 147/77
[2020-03-19 04:00] VITALS: BP 130/78
[2020-03-19 08:00] VITALS: BP 129/71
--- NOTE | 2020-03-19 09:16 | Cardiology Progress Note ---
Assessment/Plan Status: unchanged Status Narrative Assessment/Plan 1. COVID-19 viral PNA 2. SOB/ZAPIEN 3. HTN 4. Sinus bradycardia - improved 5. CHF with O2 dependence 6. Troponin leak - 0.07 top 0.04 denies chest pain Tx for viral PNA per ID. repeat troponin negative. SR, HR and SBP normal territory Subjective ROS Limited/Unobtainable: No Cardiovascular: Reports: no symptoms Respiratory: Reports: shortness of breath Gastrointestinal/Abdominal: Reports: poor appetite Genitourinary: Reports: no symptoms Subjective No acute events, resting comfortably Objective Last 24 Hour Vital Signs Date Time Temp Pulse Resp B/P (MAP) Pulse Ox O2 Delivery O2 Flow Rate FiO2 03/19/20 04:00 54 03/19/20 04:00 97.6 63 18 130/78 (95) 97 03/19/20 00:00 54 03/19/20 00:00 97.7 58 18 147/77 (100) 97 03/18/20 21:00 Nasal Cannula 3.0 03/18/20 21:00 98.2 72 18 128/75 (92) 97 03/18/20 20:00 54 03/18/20 16:00 70 03/18/20 16:00 98.2 72 18 108/66 (80) 97 03/18/20 12:00 98.4 70 18 136/81 (99) 96 03/18/20 12:00 58 General Appearance: no apparent distress EENT: PERRL/EOMI Neck: no JVD Rhythm: NSR Cardiovascular: regular rhythm Respiratory/Chest: no respiratory distress, no accessory muscle use Intake and Output 03/18/20 03/19/20 19:00 07:00 Intake Total 750 ml 400 ml Balance 750 ml 400 ml Intake Oral 150 ml IV Total 600 ml 400 ml # Voids 2 3 # Bowel Movements 1 1 Radha Guzman PA-C Mar 19, 2020 09:16
[2020-03-19] MEDS: Enoxaparin 30mg Inj SUBQ SCH (09:23)
[2020-03-19 10:07] LABS: CREATININE 0.9 MG/DL (0.55-1.30)
--- NOTE | 2020-03-19 11:34 | Pulmonology Progress Note ---
Subjective ROS Limited/Unobtainable: No Interval Events: None new Constitutional: Reports: no symptoms HEENT: Repors: no symptoms Respiratory: Reports: no symptoms Cardiovascular: Reports: no symptoms Gastrointestinal/Abdominal: Reports: no symptoms Psychiatric: Reports: no symptoms Skin: Reports: no symptoms Musculoskeletal: Reports: no symptoms Allergies: Coded Allergies: No Known Allergies (Unverified , 03/12/20) Objective Last 24 Hour Vital Signs Date Time Temp Pulse Resp B/P (MAP) Pulse Ox O2 Delivery O2 Flow Rate FiO2 03/19/20 09:00 Nasal Cannula 3.0 03/19/20 08:00 69 03/19/20 08:00 97.6 63 18 129/71 (90) 98 03/19/20 04:00 54 03/19/20 04:00 97.6 63 18 130/78 (95) 97 03/19/20 00:00 54 03/19/20 00:00 97.7 58 18 147/77 (100) 97 03/18/20 21:00 Nasal Cannula 3.0 03/18/20 21:00 98.2 72 18 128/75 (92) 97 03/18/20 20:00 54 03/18/20 16:00 70 03/18/20 16:00 98.2 72 18 108/66 (80) 97 03/18/20 12:00 98.4 70 18 136/81 (99) 96 03/18/20 12:00 58 Intake and Output 03/18/20 03/19/20 19:00 07:00 Intake Total 750 ml 400 ml Balance 750 ml 400 ml Intake Oral 150 ml IV Total 600 ml 400 ml # Voids 2 3 # Bowel Movements 1 1 General Appearance: no acute distress HEENT: normocephalic Respiratory: chest wall non-tender, lungs clear Cardiovascular: normal peripheral pulses Abdomen: normal bowel sounds Extremities: no cyanosis Laboratory Tests 03/19/20 09:05: Sodium Level 139, Potassium Level 3.0L, Chloride Level 105, Carbon Dioxide Level 27, Anion Gap 7, Blood Urea Nitrogen 17, Creatinine 0.9, Estimat Glomerular Filtration Rate 59.7, Glucose Level 181H, Calcium Level 8.0L Current Medications Medications (Trade) Dose Ordered Sig/Marcello Route PRN Reason Start Time Stop Time Status Last Admin Dose Admin Acetaminophen (Tylenol) 650 mg Q6H PRN ORAL For Headache 03/18/20 12:30 04/17/20 12:29 03/18/20 12:26 Ceftriaxone Sodium 1 gm/ Dextrose 55 ml @ 110 mls/hr Q24H IVPB 03/13/20 17:30 03/20/20 17:29 03/18/20 17:39 Dexamethasone Sodium Phosphate (Decadron 4mg/ml vial) 6 mg DAILY IVP 03/13/20 09:00 03/21/20 23:59 03/19/20 09:21 Enoxaparin Sodium (Lovenox) 30 mg DAILY SUBQ 03/15/20 09:00 06/13/20 08:59 03/19/20 09:23 Famotidine (Pepcid) 20 mg DAILY ORAL 03/13/20 09:00 06/11/20 08:59 03/19/20 09:21 Lorazepam (Ativan 2mg/ml 1ml) 0.5 mg Q4H PRN IV For Anxiety 03/12/20 23:45 03/19/20 23:44 Ondansetron HCl (Zofran) 4 mg Q6H PRN IVP Nausea & Vomiting 03/12/20 23:45 04/11/20 23:44 Polyethylene Glycol (Miralax) 17 gm DAILYPRN PRN ORAL Constipation 03/12/20 23:45 04/11/20 23:44 Sodium Chloride 1,000 ml @ 50 mls/hr Q20H IV 03/13/20 22:45 04/12/20 22:44 03/19/20 01:41 Zolpidem Tartrate (Ambien) 5 mg HSPRN PRN ORAL Insomnia 03/12/20 23:45 03/19/20 23:44 Assessment/Plan Assessment/Plan 1. COVID-19 pneumonia with hypoxia. - On remdesivir and Decadron per ID - on ceftriaxone and azithromycin - Currently saturating well on low-flow oxygen. (3L/min) - Continue supplemental oxygen 2. Leukopenia. - interval improvement in WBC counts 3. Elevated D-dimer. - venous duplex US LE- neg - on Lovenox 4. Respiratory alkalosis. 5. CHF - s/p 2D echo (Patient was seen earlier today. Signature timestamp does not reflect patient encounter time) Agustín Diamond MD, MD Mar 19, 2020 11:34
[2020-03-19 12:00] VITALS: BP 128/65
--- NOTE | 2020-03-19 15:12 | Infectious Diseases Prog Note ---
Assessment/Plan Problems: (1) Suspected COVID-19 virus infection Assessment & Plan: With positive rapid test and high inflammatory markers ,most likely COV ID 19 viral infection,PCR test to confirmis pending, continue Remdisvir iv for 5 days and decadrone for 10 days , keep in enhanced droplets isolation . monitor inflammatory markers (2) Exposure to COVID-19 virus Assessment & Plan: most likely from her , keep in isolation, monitor PCR test to confirm , highly likely infected with COVID 19 (3) Pneumonia due to COVID-19 virus Assessment & Plan: continue Remdisvir with decadron , droplets isolation, a spiration precaution , sputum culture if she produces any (4) Acute respiratory failure due to COVID-19 Assessment & Plan: with hypoxemia , sating 90% on room air , continue high flow oxygen , attempt prone position if needed , remdisvir with decadron for now . monitor CXR and ABG Subjective Constitutional: Reports: no symptoms HEENT: Reports: no symptoms Respiratory: Reports: no symptoms Breasts: Reports: no symptoms Cardiovascular: Reports: no symptoms Gastrointestinal/Abdominal: Reports: no symptoms Genitourinary: Reports: no symptoms Neurologic: Reports: no symptoms Psychiatric: Reports: no symptoms Skin: Reports: no symptoms Endocrine: Reports: no symptoms Hematologic: Reports: no symptoms Musculoskeletal: Reports: no symptoms Allergies: Coded Allergies: No Known Allergies (Unverified , 03/12/20) she is more awake and responsive, satting well on low flow oxygen, afebrile, no shortness of breath and no diarrhea Objective Last 24 Hour Vital Signs Date Time Temp Pulse Resp B/P (MAP) Pulse Ox O2 Delivery O2 Flow Rate FiO2 03/19/20 12:00 71 03/19/20 12:00 97.5 72 18 128/65 (86) 96 03/19/20 09:00 Nasal Cannula 3.0 03/19/20 08:00 69 03/19/20 08:00 97.6 63 18 129/71 (90) 98 03/19/20 04:00 54 03/19/20 04:00 97.6 63 18 130/78 (95) 97 03/19/20 00:00 54 03/19/20 00:00 97.7 58 18 147/77 (100) 97 03/18/20 21:00 Nasal Cannula 3.0 03/18/20 21:00 98.2 72 18 128/75 (92) 97 03/18/20 20:00 54 03/18/20 16:00 70 03/18/20 16:00 98.2 72 18 108/66 (80) 97 Height (Feet): 5 Height (Inches): 0.00 Weight (Pounds): 105 General Appearance: WD/WN, no acute distress HEENT: normocephalic, atraumatic, anicteric, mucous membranes moist Respiratory/Chest: chest wall non-tender, no respiratory distress, no accessory muscle use, decreased breath sounds Cardiovascular: normal peripheral pulses, normal rate, regular rhythm, no gallop/murmur, no JVD Abdomen: normal bowel sounds, soft, non tender, no organomegaly, non distended, no mass, no scars Genitourinary: normal external genitalia Extremities: no cyanosis Skin: no rash, no lesions 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, 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 Lymphatic: no neck adenopathy, no groin adenopathy Musculoskeletal: normal muscle bulk, no effusion Laboratory Tests Test 03/19/20 09:05 Sodium Level 139 MMOL/L (136-145) Potassium Level 3.0 MMOL/L (3.5-5.1) L Chloride Level 105 MMOL/L (98-107) Carbon Dioxide Level 27 MMOL/L (21-32) Anion Gap 7 mmol/L (5-15) Blood Urea Nitrogen 17 mg/dL (7-18) Creatinine 0.9 MG/DL (0.55-1.30) Estimat Glomerular Filtration Rate 59.7 mL/min (>60) Glucose Level 181 MG/DL (74-106) H Calcium Level 8.0 MG/DL (8.5-10.1) L Current Medications Medications (Trade) Dose Ordered Sig/Marcello Route PRN Reason Start Time Stop Time Status Last Admin Dose Admin Acetaminophen (Tylenol) 650 mg Q6H PRN ORAL For Headache 03/18/20 12:30 04/17/20 12:29 03/18/20 12:26 Ceftriaxone Sodium 1 gm/ Dextrose 55 ml @ 110 mls/hr Q24H IVPB 03/13/20 17:30 03/20/20 17:29 03/18/20 17:39 Dexamethasone Sodium Phosphate (Decadron 4mg/ml vial) 6 mg DAILY IVP 03/13/20 09:00 03/21/20 23:59 03/19/20 09:21 Enoxaparin Sodium (Lovenox) 30 mg DAILY SUBQ 03/15/20 09:00 06/13/20 08:59 03/19/20 09:23 Famotidine (Pepcid) 20 mg DAILY ORAL 03/13/20 09:00 06/11/20 08:59 03/19/20 09:21 Lorazepam (Ativan 2mg/ml 1ml) 0.5 mg Q4H PRN IV For Anxiety 03/12/20 23:45 03/19/20 23:44 Ondansetron HCl (Zofran) 4 mg Q6H PRN IVP Nausea & Vomiting 03/12/20 23:45 04/11/20 23:44 Polyethylene Glycol (Miralax) 17 gm DAILYPRN PRN ORAL Constipation 03/12/20 23:45 04/11/20 23:44 Sodium Chloride 1,000 ml @ 50 mls/hr Q20H IV 03/13/20 22:45 04/12/20 22:44 03/19/20 01:41 Zolpidem Tartrate (Ambien) 5 mg HSPRN PRN ORAL Insomnia 03/12/20 23:45 03/19/20 23:44 Juice Moreno M.D. Mar 19, 2020 15:12
[2020-03-19 16:00] VITALS: BP 129/85
[2020-03-19] MEDS: cefTRIAXone 1 GM in D5W 55 ML IVPB SCH (17:03)
[2020-03-19 20:00] VITALS: BP 131/85
--- NOTE | 2020-03-19 21:53 | General Progress Note ---
Subjective Allergies: Coded Allergies: No Known Allergies (Unverified , 03/12/20) Objective Last 24 Hour Vital Signs Date Time Temp Pulse Resp B/P (MAP) Pulse Ox O2 Delivery O2 Flow Rate FiO2 03/19/20 21:00 Nasal Cannula 3.0 03/19/20 20:00 98.2 65 18 131/85 (100) 97 03/19/20 20:00 81 03/19/20 16:00 62 03/19/20 16:00 98.2 65 18 129/85 (100) 97 03/19/20 12:00 71 03/19/20 12:00 97.5 72 18 128/65 (86) 96 03/19/20 09:00 Nasal Cannula 3.0 03/19/20 08:00 69 03/19/20 08:00 97.6 63 18 129/71 (90) 98 03/19/20 04:00 54 03/19/20 04:00 97.6 63 18 130/78 (95) 97 03/19/20 00:00 54 03/19/20 00:00 97.7 58 18 147/77 (100) 97 Intake and Output 03/18/20 03/19/20 19:00 07:00 Intake Total 750 ml 450 ml Balance 750 ml 450 ml Intake Oral 150 ml IV Total 600 ml 450 ml # Voids 2 3 # Bowel Movements 1 1 Laboratory Tests 03/19/20 09:05: Sodium Level 139, Potassium Level 3.0L, Chloride Level 105, Carbon Dioxide Level 27, Anion Gap 7, Blood Urea Nitrogen 17, Creatinine 0.9, Estimat Glomerular Filtration Rate 59.7, Glucose Level 181H, Calcium Level 8.0L Height (Feet): 5 Height (Inches): 0.00 Weight (Pounds): 105 Assessment/Plan Status: unchanged Assessment/Plan: S, O: seems comfortable, PHYSICAL EXAMINATION:HEAD AND NECK: Atraumatic and normocephalic. CHEST: Diffuse bronchial breathing sounds. HEART: S1, S2. Regular rate and rhythm. ABDOMEN: Soft. No organomegaly. MUSCULOSKELETAL: No gross lateralized motor deficit. NEUROLOGY: Patient is awake, alert, oriented x3. Meds: reviewed and reconciled ASSESSMENT AND PLAN: 1. COVID positive pneumonia. 2. Acute renal failure. 3. Leukopenia. 4. Thrombocytopenia. 5. Abnormal LFT. 6. Abnormal troponin levels. 7. GI and DVT prophylaxes. PLAN OF CARE: Current management. interval improvement in wbc counts Notes from [facility] is reviewed I called and left a VM for the daughter on Mar 15 current management Alison Bruce MD Mar 19, 2020 21:52
[2020-03-20] VITALS: BP 1/132
[2020-03-20 04:00] VITALS: BP 131/67
[2020-03-20 08:00] VITALS: BP 134/81
[2020-03-20] MEDS: Enoxaparin 30mg Inj SUBQ SCH (09:00)
--- NOTE | 2020-03-20 09:16 | Hematology/Onc Progress Note ---
Assessment/Plan Assessment/Plan 1. Thrombocytopenia is very likely related to COVID-19 pneumonia++++++. --> On remdesivir and Decadron per Dr. Moreno. --> On ceftriaxone and azithromycin per Dr. Bruce. --> Currently saturating well on low-flow oxygen. --> per pulm and id recs --> hep and hiv is neg --> us abd shows fatty liver disease] --> plt 147-->193 2. Leukopenia due to covid19++ --> smear is noted 3. Elevated D-dimer. --> duplex lower legs neg 4. Respiratory alkalosis. --> per pulm 5. Dvt ppx lovenox sq Appreciate consultation and waldemar RN Subjective HEENT: Denies: no symptoms, eye pain, blurred vision, tearing, double vision, ear pain, ear discharge, nose pain, nose congestion, throat pain, throat swelling, mouth pain, mouth swelling, other Cardiovascular: Denies: no symptoms, chest pain, edema, irregular heart rate, lightheadedness, palpitations, syncope, other Respiratory: Denies: no symptoms, cough, shortness of breath, SOB with excertion, SOB at rest, sputum, wheezing, other Gastrointestinal/Abdominal: Denies: no symptoms, abdomen distended, abdominal pain, black stools, tarry stools, blood in stool, constipated, diarrhea, difficulty swallowing, nausea, poor appetite, poor fluid intake, rectal bleeding, vomiting, other Genitourinary: Denies: no symptoms, burning, discharge, frequency, flank pain, hematuria, incontinence, pain, urgency, other Neurologic/Psychiatric: Denies: no symptoms, anxiety, depressed, emotional problems, headache, numbness, paresthesia, pre-existing deficit, seizure, tingling, tremors, weakness, other Endocrine: Denies: no symptoms, excessive sweating, flushing, intolerance to cold, intolerance to heat, increased hunger, increased thirst, increased urine, unexplained weight gain, unexplained weight loss, other Hematologic/Lymphatic: Denies: no symptoms, anemia, easy bleeding, easy bruising, adenopathy, other Allergies: Coded Allergies: No Known Allergies (Unverified , 03/12/20) Subjective 03/16 asymptomatic, on 2lnc, no bleeding, meds noted 03/17 on 2lnc, no bleeding, wbc 2.4, labs reviewed, meds noted 03/18 remains on 2lnc, on lovenox, ctx and dex, labs noted 03/20 labs from am pending, no bleeding or night sweats Objective Objective Current Medications Medications (Trade) Dose Ordered Sig/Marcello Route PRN Reason Start Time Stop Time Status Last Admin Dose Admin Acetaminophen (Tylenol) 650 mg Q6H PRN ORAL For Headache 03/18/20 12:30 04/17/20 12:29 03/18/20 12:26 Ceftriaxone Sodium 1 gm/ Dextrose 55 ml @ 110 mls/hr Q24H IVPB 03/13/20 17:30 03/20/20 17:29 03/19/20 17:03 Dexamethasone Sodium Phosphate (Decadron 4mg/ml vial) 6 mg DAILY IVP 03/13/20 09:00 03/21/20 23:59 03/19/20 09:21 Enoxaparin Sodium (Lovenox) 30 mg DAILY SUBQ 03/15/20 09:00 06/13/20 08:59 03/19/20 09:23 Famotidine (Pepcid) 20 mg DAILY ORAL 03/13/20 09:00 06/11/20 08:59 03/19/20 09:21 Ondansetron HCl (Zofran) 4 mg Q6H PRN IVP Nausea & Vomiting 03/12/20 23:45 04/11/20 23:44 Polyethylene Glycol (Miralax) 17 gm DAILYPRN PRN ORAL Constipation 03/12/20 23:45 04/11/20 23:44 Sodium Chloride 1,000 ml @ 50 mls/hr Q20H IV 03/13/20 22:45 04/12/20 22:44 03/19/20 17:58 Last 24 Hour Vital Signs Date Time Temp Pulse Resp B/P (MAP) Pulse Ox O2 Delivery O2 Flow Rate FiO2 03/20/20 08:44 96 Nasal Cannula 2.0 28 03/20/20 08:39 Nasal Cannula 3.0 03/20/20 08:36 84 03/20/20 04:00 97.4 63 18 131/67 (88) 97 03/20/20 04:00 92 03/20/20 00:00 97.3 65 18 1/132 (89) 97 03/20/20 00:00 49 03/19/20 21:00 Nasal Cannula 3.0 03/19/20 20:00 98.2 65 18 131/85 (100) 97 03/19/20 20:00 81 03/19/20 16:00 62 03/19/20 16:00 98.2 65 18 129/85 (100) 97 03/19/20 12:00 71 03/19/20 12:00 97.5 72 18 128/65 (86) 96 03/19/20 09:00 Nasal Cannula 3.0 03/19/20 08:00 69 03/19/20 08:00 97.6 63 18 129/71 (90) 98 03/19/20 04:00 54 03/19/20 04:00 97.6 63 18 130/78 (95) 97 03/19/20 00:00 54 03/19/20 00:00 97.7 58 18 147/77 (100) 97 03/18/20 21:00 Nasal Cannula 3.0 03/18/20 21:00 98.2 72 18 128/75 (92) 97 03/18/20 20:00 54 03/18/20 16:00 70 03/18/20 16:00 98.2 72 18 108/66 (80) 97 03/18/20 12:00 98.4 70 18 136/81 (99) 96 03/18/20 12:00 58 l Intake and Output 03/19/20 03/20/20 19:00 07:00 Intake Total 1250 ml 1200 ml Balance 1250 ml 1200 ml Intake Oral 650 ml 50 ml IV Total 600 ml 1150 ml # Voids 3 # Bowel Movements 1 1 Labs Test 03/18/20 04:00 03/19/20 09:05 White Blood Count 5.2 K/UL (4.8-10.8) Red Blood Count 4.32 M/UL (4.20-5.40) Hemoglobin 14.1 G/DL (12.0-16.0) Hematocrit 40.3 % (37.0-47.0) Mean Corpuscular Volume 93 FL (80-99) Mean Corpuscular Hemoglobin 32.8 PG (27.0-31.0) Mean Corpuscular Hemoglobin Concent 35.1 G/DL (32.0-36.0) Red Cell Distribution Width 12.8 % (11.6-14.8) Platelet Count 193 K/UL (150-450) Mean Platelet Volume 8.9 FL (6.5-10.1) Neutrophils (%) (Auto) 81.1 % (45.0-75.0) Lymphocytes (%) (Auto) 11.2 % (20.0-45.0) Monocytes (%) (Auto) 6.7 % (1.0-10.0) Eosinophils (%) (Auto) 0.1 % (0.0-3.0) Basophils (%) (Auto) 0.9 % (0.0-2.0) Sodium Level 140 MMOL/L (136-145) 139 MMOL/L (136-145) Potassium Level 3.6 MMOL/L (3.5-5.1) 3.0 MMOL/L (3.5-5.1) Chloride Level 105 MMOL/L (98-107) 105 MMOL/L (98-107) Carbon Dioxide Level 28 MMOL/L (21-32) 27 MMOL/L (21-32) Anion Gap 7 mmol/L (5-15) 7 mmol/L (5-15) Blood Urea Nitrogen 16 mg/dL (7-18) 17 mg/dL (7-18) Creatinine 0.9 MG/DL (0.55-1.30) 0.9 MG/DL (0.55-1.30) Estimat Glomerular Filtration Rate 59.7 mL/min (>60) 59.7 mL/min (>60) Glucose Level 98 MG/DL (74-106) 181 MG/DL (74-106) Calcium Level 8.1 MG/DL (8.5-10.1) 8.0 MG/DL (8.5-10.1) Total Bilirubin 0.5 MG/DL (0.2-1.0) Direct Bilirubin < 0.1 MG/DL (0.0-0.3) Aspartate Amino Transf (AST/SGOT) 33 U/L (15-37) Alanine Aminotransferase (ALT/SGPT) 32 U/L (12-78) Alkaline Phosphatase 49 U/L (46-116) Total Protein 5.8 G/DL (6.4-8.2) Albumin 2.7 G/DL (3.4-5.0) Globulin 3.1 g/dL Height (Feet): 5 Height (Inches): 0.00 Weight (Pounds): 105 Objective Physical Exam Gen: Nad Pulm: ctab, no cwr CV: rrr, no mgr Abd: soft, nt, nd Ext: no cce Omar Lynch MD Mar 20, 2020 09:15
[2020-03-20 09:49] LABS: HEMATOCRIT 40.8 % (37.0-47.0); HEMOGLOBIN 14.5 G/DL (12.0-16.0); MEAN CORPUSCULAR VOLUME 92 FL (80-99); PLATELET COUNT 246 K/UL (150-450); RED BLOOD COUNT 4.42 M/UL (4.20-5.40); RED CELL DISTRIBUTION WIDTH 13.8 % (11.6-14.8); WHITE BLOOD COUNT 5.2 K/UL (4.8-10.8)
--- NOTE | 2020-03-20 10:02 | Pulmonology Progress Note ---
Subjective ROS Limited/Unobtainable: No Interval Events: None new Constitutional: Reports: no symptoms HEENT: Repors: no symptoms Respiratory: Reports: no symptoms Cardiovascular: Reports: no symptoms Gastrointestinal/Abdominal: Reports: no symptoms Psychiatric: Reports: no symptoms Skin: Reports: no symptoms Musculoskeletal: Reports: no symptoms Allergies: Coded Allergies: No Known Allergies (Unverified , 03/12/20) Objective Last 24 Hour Vital Signs Date Time Temp Pulse Resp B/P (MAP) Pulse Ox O2 Delivery O2 Flow Rate FiO2 03/20/20 08:44 96 Nasal Cannula 2.0 28 03/20/20 08:39 Nasal Cannula 3.0 03/20/20 08:36 84 03/20/20 04:00 97.4 63 18 131/67 (88) 97 03/20/20 04:00 92 03/20/20 00:00 97.3 65 18 1/132 (89) 97 03/20/20 00:00 49 03/19/20 21:00 Nasal Cannula 3.0 03/19/20 20:00 98.2 65 18 131/85 (100) 97 03/19/20 20:00 81 03/19/20 16:00 62 03/19/20 16:00 98.2 65 18 129/85 (100) 97 03/19/20 12:00 71 03/19/20 12:00 97.5 72 18 128/65 (86) 96 Intake and Output 03/19/20 03/20/20 19:00 07:00 Intake Total 1250 ml 1200 ml Balance 1250 ml 1200 ml Intake Oral 650 ml 50 ml IV Total 600 ml 1150 ml # Voids 3 # Bowel Movements 1 1 General Appearance: no acute distress HEENT: normocephalic Respiratory: chest wall non-tender, lungs clear Cardiovascular: normal peripheral pulses Abdomen: normal bowel sounds Extremities: no cyanosis Laboratory Tests 03/20/20 08:00: White Blood Count 5.2, Red Blood Count 4.42, Hemoglobin 14.5, Hematocrit 40.8, Mean Corpuscular Volume 92, Mean Corpuscular Hemoglobin 32.7H, Mean Corpuscular Hemoglobin Concent 35.5, Red Cell Distribution Width 13.8, Platelet Count 246, Mean Platelet Volume 8.1, Neutrophils (%) (Auto) , Lymphocytes (%) (Auto) , Monocytes (%) (Auto) , Eosinophils (%) (Auto) , Basophils (%) (Auto) , Neutrophils % (Manual) [Pending], Lymphocytes % (Manual) [Pending], Platelet Estimate [Pending], Platelet Morphology [Pending], Sodium Level [Pending], Potassium Level [Pending], Chloride Level [Pending], Carbon Dioxide Level [Pending], Blood Urea Nitrogen [Pending], Creatinine [Pending], Estimat Glomerular Filtration Rate [Pending], Glucose Level [Pending], Calcium Level [Pending] Current Medications Medications (Trade) Dose Ordered Sig/Marcello Route PRN Reason Start Time Stop Time Status Last Admin Dose Admin Acetaminophen (Tylenol) 650 mg Q6H PRN ORAL For Headache 03/18/20 12:30 04/17/20 12:29 03/18/20 12:26 Ceftriaxone Sodium 1 gm/ Dextrose 55 ml @ 110 mls/hr Q24H IVPB 03/13/20 17:30 03/20/20 17:29 03/19/20 17:03 Dexamethasone Sodium Phosphate (Decadron 4mg/ml vial) 6 mg DAILY IVP 03/13/20 09:00 03/21/20 23:59 03/20/20 09:00 Enoxaparin Sodium (Lovenox) 30 mg DAILY SUBQ 03/15/20 09:00 06/13/20 08:59 03/20/20 09:00 Famotidine (Pepcid) 20 mg DAILY ORAL 03/13/20 09:00 06/11/20 08:59 03/20/20 09:00 Ondansetron HCl (Zofran) 4 mg Q6H PRN IVP Nausea & Vomiting 03/12/20 23:45 04/11/20 23:44 Polyethylene Glycol (Miralax) 17 gm DAILYPRN PRN ORAL Constipation 03/12/20 23:45 04/11/20 23:44 Sodium Chloride 1,000 ml @ 50 mls/hr Q20H IV 03/13/20 22:45 04/12/20 22:44 03/19/20 17:58 Assessment/Plan Assessment/Plan 1. COVID-19 pneumonia with hypoxia. - On remdesivir and Decadron per ID - on ceftriaxone and azithromycin - Currently saturating well on low-flow oxygen. (3L/min) - Continue supplemental oxygen 2. Leukopenia. - interval improvement in WBC counts 3. Elevated D-dimer. - venous duplex US LE- neg - on Lovenox 4. Respiratory alkalosis. 5. CHF - s/p 2D echo (Patient was seen earlier today. Signature timestamp does not reflect patient encounter time) Agustín Diamond MD, MD Mar 20, 2020 10:02
[2020-03-20 10:47] LABS: ANION GAP 8 mmol/L (5-15); BLOOD UREA NITROGEN 17 mg/dL (7-18); CALCIUM 8.7 MG/DL (8.5-10.1); CARBON DIOXIDE 27 MMOL/L (21-32); CHLORIDE 106 MMOL/L (98-107); CREATININE 0.8 MG/DL (0.55-1.30); POTASSIUM 3.5 MMOL/L (3.5-5.1); SODIUM 140 MMOL/L (136-145)
[2020-03-20 12:03] VITALS: BP 139/67
[2020-03-20 16:00] VITALS: BP 138/76
[2020-03-20 20:00] VITALS: BP 155/87
--- NOTE | 2020-03-20 21:28 | Infectious Diseases Prog Note ---
Assessment/Plan Problems: (1) Suspected COVID-19 virus infection Assessment & Plan: With positive rapid test and high inflammatory markers ,most likely COV ID 19 viral infection,PCR test to confirmis pending, continue Remdisvir iv for 5 days and decadrone for 10 days , keep in enhanced droplets isolation . monitor inflammatory markers (2) Exposure to COVID-19 virus Assessment & Plan: most likely from her , keep in isolation, monitor PCR test to confirm , highly likely infected with COVID 19 (3) Pneumonia due to COVID-19 virus Assessment & Plan: continue Remdisvir with decadron , droplets isolation, a spiration precaution , sputum culture if she produces any (4) Acute respiratory failure due to COVID-19 Assessment & Plan: with hypoxemia , sating 90% on room air , continue high flow oxygen , attempt prone position if needed , remdisvir with decadron for now . monitor CXR and ABG Subjective Constitutional: Reports: no symptoms HEENT: Reports: no symptoms Respiratory: Reports: no symptoms Breasts: Reports: no symptoms Cardiovascular: Reports: no symptoms Gastrointestinal/Abdominal: Reports: no symptoms Genitourinary: Reports: no symptoms Neurologic: Reports: no symptoms Psychiatric: Reports: no symptoms Skin: Reports: no symptoms Endocrine: Reports: no symptoms Hematologic: Reports: no symptoms Musculoskeletal: Reports: no symptoms Allergies: Coded Allergies: No Known Allergies (Unverified , 03/12/20) she is more awake and responsive, satting well on low flow oxygen, afebrile, no shortness of breath and no diarrhea Objective Last 24 Hour Vital Signs Date Time Temp Pulse Resp B/P (MAP) Pulse Ox O2 Delivery O2 Flow Rate FiO2 03/20/20 20:00 97.0 63 18 155/87 (109) 97 03/20/20 16:00 96.5 81 20 138/76 (96) 100 03/20/20 16:00 82 03/20/20 12:03 97.7 67 19 139/67 (91) 100 03/20/20 12:00 75 03/20/20 08:44 96 Nasal Cannula 2.0 28 03/20/20 08:39 Nasal Cannula 3.0 03/20/20 08:36 84 03/20/20 08:00 96.6 100 21 134/81 (98) 97 03/20/20 04:00 97.4 63 18 131/67 (88) 97 03/20/20 04:00 92 03/20/20 00:00 97.3 65 18 1/132 (89) 97 03/20/20 00:00 49 Height (Feet): 5 Height (Inches): 0.00 Weight (Pounds): 105 General Appearance: WD/WN, no acute distress HEENT: normocephalic, atraumatic, anicteric, mucous membranes moist, PERRL Respiratory/Chest: chest wall non-tender, lungs clear, normal breath sounds, no respiratory distress, no accessory muscle use Cardiovascular: normal peripheral pulses, normal rate, regular rhythm, no JVD Abdomen: normal bowel sounds, soft, non tender, no organomegaly, non distended, no mass Extremities: no cyanosis, no clubbing Skin: no rash, no lesions Neurologic/Psychiatric: medical dermatologist II-XII grossly normal, alert, responsive Lymphatic: no neck adenopathy, no groin adenopathy Musculoskeletal: normal muscle bulk Laboratory Tests Test 03/20/20 08:00 White Blood Count 5.2 K/UL (4.8-10.8) Red Blood Count 4.42 M/UL (4.20-5.40) Hemoglobin 14.5 G/DL (12.0-16.0) Hematocrit 40.8 % (37.0-47.0) Mean Corpuscular Volume 92 FL (80-99) Mean Corpuscular Hemoglobin 32.7 PG (27.0-31.0) H Mean Corpuscular Hemoglobin Concent 35.5 G/DL (32.0-36.0) Red Cell Distribution Width 13.8 % (11.6-14.8) Platelet Count 246 K/UL (150-450) Mean Platelet Volume 8.1 FL (6.5-10.1) Neutrophils (%) (Auto) % (45.0-75.0) Lymphocytes (%) (Auto) % (20.0-45.0) Monocytes (%) (Auto) % (1.0-10.0) Eosinophils (%) (Auto) % (0.0-3.0) Basophils (%) (Auto) % (0.0-2.0) Differential Total Cells Counted 100 Neutrophils % (Manual) 83 % (45-75) H Lymphocytes % (Manual) 10 % (20-45) L Monocytes % (Manual) 7 % (1-10) Eosinophils % (Manual) 0 % (0-3) Basophils % (Manual) 0 % (0-2) Band Neutrophils 0 % (0-8) Platelet Estimate Adequate Platelet Morphology Normal Red Blood Cell Morphology Normal Sodium Level 140 MMOL/L (136-145) Potassium Level 3.5 MMOL/L (3.5-5.1) Chloride Level 106 MMOL/L (98-107) Carbon Dioxide Level 27 MMOL/L (21-32) Anion Gap 8 mmol/L (5-15) Blood Urea Nitrogen 17 mg/dL (7-18) Creatinine 0.8 MG/DL (0.55-1.30) Estimat Glomerular Filtration Rate > 60 mL/min (>60) Glucose Level 124 MG/DL (74-106) H Calcium Level 8.7 MG/DL (8.5-10.1) Current Medications Medications (Trade) Dose Ordered Sig/Marcello Route PRN Reason Start Time Stop Time Status Last Admin Dose Admin Acetaminophen (Tylenol) 650 mg Q6H PRN ORAL For Headache 03/18/20 12:30 04/17/20 12:29 03/18/20 12:26 Dexamethasone Sodium Phosphate (Decadron 4mg/ml vial) 6 mg DAILY IVP 03/13/20 09:00 03/21/20 23:59 03/20/20 09:00 Enoxaparin Sodium (Lovenox) 30 mg DAILY SUBQ 03/15/20 09:00 06/13/20 08:59 03/20/20 09:00 Famotidine (Pepcid) 20 mg DAILY ORAL 03/13/20 09:00 06/11/20 08:59 03/20/20 09:00 Ondansetron HCl (Zofran) 4 mg Q6H PRN IVP Nausea & Vomiting 03/12/20 23:45 04/11/20 23:44 Polyethylene Glycol (Miralax) 17 gm DAILYPRN PRN ORAL Constipation 03/12/20 23:45 04/11/20 23:44 Sodium Chloride 1,000 ml @ 50 mls/hr Q20H IV 03/13/20 22:45 04/12/20 22:44 03/20/20 16:43 Juice Moreno M.D. Mar 20, 2020 21:28
[2020-03-21] VITALS: BP 149/82
[2020-03-21 04:00] VITALS: BP 134/76
--- NOTE | 2020-03-21 06:36 | Hematology/Onc Progress Note ---
Assessment/Plan Assessment/Plan 1. Thrombocytopenia is very likely related to COVID-19 pneumonia++++++. --> On remdesivir and Decadron per Dr. Moreno. --> On ceftriaxone and azithromycin per Dr. Bruce. --> Currently saturating well on low-flow oxygen. --> per pulm and id recs --> hep and hiv is neg --> us abd shows fatty liver disease] --> plt 147-->193 2. Leukopenia due to covid19++ --> smear is noted 3. Elevated D-dimer. --> duplex lower legs neg 4. Respiratory alkalosis. --> per pulm 5. Dvt ppx lovenox sq Appreciate consultation and waldemar RN Subjective Constitutional: Denies: no symptoms, chills, fever, malaise, weakness, other HEENT: Denies: no symptoms, eye pain, blurred vision, tearing, double vision, ear pain, ear discharge, nose pain, nose congestion, throat pain, throat swelling, mouth pain, mouth swelling, other Cardiovascular: Denies: no symptoms, chest pain, edema, irregular heart rate, lightheadedness, palpitations, syncope, other Respiratory: Denies: no symptoms, cough, shortness of breath, SOB with excertion, SOB at rest, sputum, wheezing, other Gastrointestinal/Abdominal: Denies: no symptoms, abdomen distended, abdominal pain, black stools, tarry stools, blood in stool, constipated, diarrhea, difficulty swallowing, nausea, poor appetite, poor fluid intake, rectal bleeding, vomiting, other Genitourinary: Denies: no symptoms, burning, discharge, frequency, flank pain, hematuria, incontinence, pain, urgency, other Neurologic/Psychiatric: Denies: no symptoms, anxiety, depressed, emotional problems, headache, numbness, paresthesia, pre-existing deficit, seizure, tingling, tremors, weakness, other Allergies: Coded Allergies: No Known Allergies (Unverified , 03/12/20) Subjective 03/16 asymptomatic, on 2lnc, no bleeding, meds noted 03/17 on 2lnc, no bleeding, wbc 2.4, labs reviewed, meds noted 03/18 remains on 2lnc, on lovenox, ctx and dex, labs noted 03/20 labs from am pending, no bleeding or night sweats 03/21 denies any pain, no bleeding or chills, labs reviewed yesterdays Objective Objective Current Medications Medications (Trade) Dose Ordered Sig/Marcello Route PRN Reason Start Time Stop Time Status Last Admin Dose Admin Acetaminophen (Tylenol) 650 mg Q6H PRN ORAL For Headache 03/18/20 12:30 04/17/20 12:29 03/18/20 12:26 Dexamethasone Sodium Phosphate (Decadron 4mg/ml vial) 6 mg DAILY IVP 03/13/20 09:00 03/21/20 23:59 03/20/20 09:00 Enoxaparin Sodium (Lovenox) 30 mg DAILY SUBQ 03/15/20 09:00 06/13/20 08:59 03/20/20 09:00 Famotidine (Pepcid) 20 mg DAILY ORAL 03/13/20 09:00 06/11/20 08:59 03/20/20 09:00 Ondansetron HCl (Zofran) 4 mg Q6H PRN IVP Nausea & Vomiting 03/12/20 23:45 04/11/20 23:44 Polyethylene Glycol (Miralax) 17 gm DAILYPRN PRN ORAL Constipation 03/12/20 23:45 04/11/20 23:44 Sodium Chloride 1,000 ml @ 50 mls/hr Q20H IV 03/13/20 22:45 04/12/20 22:44 03/20/20 16:43 Last 24 Hour Vital Signs Date Time Temp Pulse Resp B/P (MAP) Pulse Ox O2 Delivery O2 Flow Rate FiO2 03/21/20 04:00 97.3 79 18 134/76 (95) 99 03/21/20 00:00 97.6 67 18 149/82 (104) 96 03/20/20 23:57 50 03/20/20 21:00 Nasal Cannula 3.0 03/20/20 21:00 94 Nasal Cannula 2.0 28 03/20/20 20:00 53 03/20/20 20:00 97.0 63 18 155/87 (109) 97 03/20/20 16:00 96.5 81 20 138/76 (96) 100 03/20/20 16:00 82 03/20/20 12:03 97.7 67 19 139/67 (91) 100 03/20/20 12:00 75 03/20/20 08:44 96 Nasal Cannula 2.0 28 03/20/20 08:39 Nasal Cannula 3.0 03/20/20 08:36 84 03/20/20 08:00 96.6 100 21 134/81 (98) 97 03/20/20 04:00 97.4 63 18 131/67 (88) 97 03/20/20 04:00 92 03/20/20 00:00 97.3 65 18 1/132 (89) 97 03/20/20 00:00 49 03/19/20 21:00 Nasal Cannula 3.0 03/19/20 20:00 98.2 65 18 131/85 (100) 97 03/19/20 20:00 81 03/19/20 16:00 62 03/19/20 16:00 98.2 65 18 129/85 (100) 97 03/19/20 12:00 71 03/19/20 12:00 97.5 72 18 128/65 (86) 96 03/19/20 09:00 Nasal Cannula 3.0 03/19/20 08:00 69 03/19/20 08:00 97.6 63 18 129/71 (90) 98 Intake and Output 03/20/20 03/21/20 19:00 07:00 Intake Total 290 ml 860 ml Output Total 1200 ml Balance -910 ml 860 ml Intake Oral 140 ml 360 ml IV Total 150 ml 500 ml Output Urine Total 1200 ml # Voids 3 4 Labs Test 03/19/20 09:05 03/20/20 08:00 Sodium Level 139 MMOL/L (136-145) 140 MMOL/L (136-145) Potassium Level 3.0 MMOL/L (3.5-5.1) 3.5 MMOL/L (3.5-5.1) Chloride Level 105 MMOL/L (98-107) 106 MMOL/L (98-107) Carbon Dioxide Level 27 MMOL/L (21-32) 27 MMOL/L (21-32) Anion Gap 7 mmol/L (5-15) 8 mmol/L (5-15) Blood Urea Nitrogen 17 mg/dL (7-18) 17 mg/dL (7-18) Creatinine 0.9 MG/DL (0.55-1.30) 0.8 MG/DL (0.55-1.30) Estimat Glomerular Filtration Rate 59.7 mL/min (>60) > 60 mL/min (>60) Glucose Level 181 MG/DL (74-106) 124 MG/DL (74-106) Calcium Level 8.0 MG/DL (8.5-10.1) 8.7 MG/DL (8.5-10.1) White Blood Count 5.2 K/UL (4.8-10.8) Red Blood Count 4.42 M/UL (4.20-5.40) Hemoglobin 14.5 G/DL (12.0-16.0) Hematocrit 40.8 % (37.0-47.0) Mean Corpuscular Volume 92 FL (80-99) Mean Corpuscular Hemoglobin 32.7 PG (27.0-31.0) Mean Corpuscular Hemoglobin Concent 35.5 G/DL (32.0-36.0) Red Cell Distribution Width 13.8 % (11.6-14.8) Platelet Count 246 K/UL (150-450) Mean Platelet Volume 8.1 FL (6.5-10.1) Neutrophils (%) (Auto) % (45.0-75.0) Lymphocytes (%) (Auto) % (20.0-45.0) Monocytes (%) (Auto) % (1.0-10.0) Eosinophils (%) (Auto) % (0.0-3.0) Basophils (%) (Auto) % (0.0-2.0) Differential Total Cells Counted 100 Neutrophils % (Manual) 83 % (45-75) Lymphocytes % (Manual) 10 % (20-45) Monocytes % (Manual) 7 % (1-10) Eosinophils % (Manual) 0 % (0-3) Basophils % (Manual) 0 % (0-2) Band Neutrophils 0 % (0-8) Platelet Estimate Adequate Platelet Morphology Normal Red Blood Cell Morphology Normal Height (Feet): 5 Height (Inches): 0.00 Weight (Pounds): 105 Objective Physical Exam Gen: Nad Pulm: ctab, no cwr CV: rrr, no mgr Abd: soft, nt, nd Ext: no cce Omar Lynch MD Mar 21, 2020 06:36
[2020-03-21 08:00] VITALS: BP 130/91
[2020-03-21] MEDS ORDERED: 1/2 NS 1000ml IV ONE (08:18)
[2020-03-21] MEDS: Enoxaparin 30mg Inj SUBQ SCH (09:51)
[2020-03-21 12:00] VITALS: BP 139/87
--- NOTE | 2020-03-21 12:32 | Pulmonology Progress Note ---
Subjective ROS Limited/Unobtainable: No Interval Events: None new Constitutional: Reports: no symptoms HEENT: Repors: no symptoms Respiratory: Reports: no symptoms Cardiovascular: Reports: no symptoms Gastrointestinal/Abdominal: Reports: no symptoms Psychiatric: Reports: no symptoms Skin: Reports: no symptoms Musculoskeletal: Reports: no symptoms Allergies: Coded Allergies: No Known Allergies (Unverified , 03/12/20) Objective Last 24 Hour Vital Signs Date Time Temp Pulse Resp B/P (MAP) Pulse Ox O2 Delivery O2 Flow Rate FiO2 03/21/20 09:00 Nasal Cannula 2.0 03/21/20 08:00 96.8 61 20 130/91 (104) 97 03/21/20 08:00 57 03/21/20 04:00 49 03/21/20 04:00 97.3 79 18 134/76 (95) 99 03/21/20 00:00 97.6 67 18 149/82 (104) 96 03/20/20 23:57 50 03/20/20 21:00 Nasal Cannula 3.0 03/20/20 21:00 94 Nasal Cannula 2.0 28 03/20/20 20:00 53 03/20/20 20:00 97.0 63 18 155/87 (109) 97 03/20/20 16:00 96.5 81 20 138/76 (96) 100 03/20/20 16:00 82 Intake and Output 03/20/20 03/21/20 19:00 07:00 Intake Total 290 ml 910 ml Output Total 1200 ml Balance -910 ml 910 ml Intake Oral 140 ml 360 ml IV Total 150 ml 550 ml Output Urine Total 1200 ml # Voids 3 4 Objective 03/21 no change; wean down oxygen as tolerated 03/18 saturating well on 2 L NC 03/17 saturating well on 3L NC 03/16 2D echo at the time of exam; NAD 03/15 PT eval at the time of exam General Appearance: no acute distress HEENT: normocephalic Respiratory: chest wall non-tender, lungs clear Cardiovascular: normal peripheral pulses Abdomen: normal bowel sounds Extremities: no cyanosis Current Medications Medications (Trade) Dose Ordered Sig/Marcello Route PRN Reason Start Time Stop Time Status Last Admin Dose Admin Acetaminophen (Tylenol) 650 mg Q6H PRN ORAL For Headache 03/18/20 12:30 04/17/20 12:29 03/18/20 12:26 Dexamethasone Sodium Phosphate (Decadron 4mg/ml vial) 6 mg DAILY IVP 03/13/20 09:00 03/21/20 23:59 03/21/20 09:50 Enoxaparin Sodium (Lovenox) 30 mg DAILY SUBQ 03/15/20 09:00 06/13/20 08:59 03/21/20 09:51 Famotidine (Pepcid) 20 mg DAILY ORAL 03/13/20 09:00 06/11/20 08:59 03/21/20 09:50 Ondansetron HCl (Zofran) 4 mg Q6H PRN IVP Nausea & Vomiting 03/12/20 23:45 04/11/20 23:44 Polyethylene Glycol (Miralax) 17 gm DAILYPRN PRN ORAL Constipation 03/12/20 23:45 04/11/20 23:44 Sodium Chloride 1,000 ml @ 50 mls/hr Q20H IV 03/13/20 22:45 04/12/20 22:44 03/21/20 09:49 Assessment/Plan Assessment/Plan 1. COVID-19 pneumonia with hypoxia. - on Decadron per ID - s/p remdesivir, ceftriaxone and azithromycin - Currently saturating well on low-flow oxygen. (2L/min) - wean down oxygen as tolerated 2. Leukopenia. - improved 3. Elevated D-dimer. - venous duplex US LE- neg - on Lovenox 4. Respiratory alkalosis. 5. CHF - s/p 2D echo; EF 60-65% - management per cardio The care of this patient was discussed with my supervising physician Time spent for this encounter was approximately 31 minutes Tan Garcia Mar 21, 2020 12:32
--- NOTE | 2020-03-21 14:17 | General Progress Note ---
Subjective Allergies: Coded Allergies: No Known Allergies (Unverified , 03/12/20) Objective Last 24 Hour Vital Signs Date Time Temp Pulse Resp B/P (MAP) Pulse Ox O2 Delivery O2 Flow Rate FiO2 03/21/20 12:00 98.9 89 19 139/87 (104) 96 03/21/20 12:00 107 03/21/20 09:00 Nasal Cannula 2.0 03/21/20 08:00 96.8 61 20 130/91 (104) 97 03/21/20 08:00 57 03/21/20 04:00 49 03/21/20 04:00 97.3 79 18 134/76 (95) 99 03/21/20 00:00 97.6 67 18 149/82 (104) 96 03/20/20 23:57 50 03/20/20 21:00 Nasal Cannula 3.0 03/20/20 21:00 94 Nasal Cannula 2.0 28 03/20/20 20:00 53 03/20/20 20:00 97.0 63 18 155/87 (109) 97 03/20/20 16:00 96.5 81 20 138/76 (96) 100 03/20/20 16:00 82 Intake and Output 03/20/20 03/21/20 19:00 07:00 Intake Total 290 ml 910 ml Output Total 1200 ml Balance -910 ml 910 ml Intake Oral 140 ml 360 ml IV Total 150 ml 550 ml Output Urine Total 1200 ml # Voids 3 4 Height (Feet): 5 Height (Inches): 0.00 Weight (Pounds): 105 Assessment/Plan Status: unchanged Assessment/Plan: S, O: MIld SOB, seems comfortable, PHYSICAL EXAMINATION:HEAD AND NECK: Atraumatic and normocephalic. CHEST: Diffuse bronchial breathing sounds. HEART: S1, S2. Regular rate and rhythm. ABDOMEN: Soft. No organomegaly. MUSCULOSKELETAL: No gross lateralized motor deficit. NEUROLOGY: Patient is awake, alert, oriented x3. Meds: reviewed and reconciled ASSESSMENT AND PLAN: 1. COVID positive pneumonia. 2. Acute renal failure. 3. Leukopenia. 4. Thrombocytopenia. 5. Abnormal LFT. 6. Abnormal troponin levels. 7. GI and DVT prophylaxes. PLAN OF CARE: Current management. interval improvement in wbc counts Notes from Hem is reviewed I called and left a for the daughter on Mar 15 current management minimal sob, once clear from pulmonary , will be ok to continue isolation at home Alison Bruce MD Mar 21, 2020 14:17
[2020-03-21 16:00] VITALS: BP 120/77
--- NOTE | 2020-03-21 17:25 | Infectious Diseases Prog Note ---
Assessment/Plan Problems: (1) Suspected COVID-19 virus infection Assessment & Plan: With positive rapid test and high inflammatory markers ,most likely COV ID 19 viral infection,PCR test to confirm is pending, continue Remdisvir iv for 5 days and decadrone for 10 days , keep in enhanced droplets isolation . monitor inflammatory markers (2) Exposure to COVID-19 virus Assessment & Plan: most likely from her , keep in isolation, monitor PCR test to confirm , highly likely infected with COVID 19 (3) Pneumonia due to COVID-19 virus Assessment & Plan: continue Remdisvir with decadron , droplets isolation, aspiration precaution , sputum culture if she produces any (4) Acute respiratory failure due to COVID-19 Assessment & Plan: with hypoxemia , sating 90% on room air , continue high flow oxygen , attempt prone position if needed , remdisvir with decadron for now . monitor CXR and ABG Subjective Constitutional: Reports: no symptoms HEENT: Reports: no symptoms Respiratory: Reports: no symptoms Breasts: Reports: no symptoms Cardiovascular: Reports: no symptoms Gastrointestinal/Abdominal: Reports: no symptoms Genitourinary: Reports: no symptoms Neurologic: Reports: no symptoms Psychiatric: Reports: no symptoms Skin: Reports: no symptoms Endocrine: Reports: no symptoms Hematologic: Reports: no symptoms Musculoskeletal: Reports: no symptoms Allergies: Coded Allergies: No Known Allergies (Unverified , 03/12/20) she is more awake and responsive, satting well on low flow oxygen, afebrile, no shortness of breath and no diarrhea Objective Last 24 Hour Vital Signs Date Time Temp Pulse Resp B/P (MAP) Pulse Ox O2 Delivery O2 Flow Rate FiO2 03/21/20 12:00 98.9 89 19 139/87 (104) 96 03/21/20 12:00 107 03/21/20 09:00 Nasal Cannula 2.0 03/21/20 08:00 96.8 61 20 130/91 (104) 97 03/21/20 08:00 57 03/21/20 04:00 49 03/21/20 04:00 97.3 79 18 134/76 (95) 99 03/21/20 00:00 97.6 67 18 149/82 (104) 96 03/20/20 23:57 50 03/20/20 21:00 Nasal Cannula 3.0 03/20/20 21:00 94 Nasal Cannula 2.0 28 03/20/20 20:00 53 03/20/20 20:00 97.0 63 18 155/87 (109) 97 Height (Feet): 5 Height (Inches): 0.00 Weight (Pounds): 105 General Appearance: WD/WN, no acute distress HEENT: normocephalic, atraumatic, anicteric, mucous membranes moist, PERRL Respiratory/Chest: chest wall non-tender, lungs clear, normal breath sounds, no respiratory distress, no accessory muscle use Cardiovascular: normal peripheral pulses, normal rate, regular rhythm, no gallop/murmur, no JVD Abdomen: normal bowel sounds, soft, non tender, no organomegaly, non distended, no mass, no scars Genitourinary: normal external genitalia Extremities: no cyanosis, no clubbing Skin: no rash, no lesions 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, alert, responsive Lymphatic: no neck adenopathy, no groin adenopathy Musculoskeletal: normal muscle bulk, no effusion Current Medications Medications (Trade) Dose Ordered Sig/Marcello Route PRN Reason Start Time Stop Time Status Last Admin Dose Admin Acetaminophen (Tylenol) 650 mg Q6H PRN ORAL For Headache 03/18/20 12:30 04/17/20 12:29 03/18/20 12:26 Dexamethasone Sodium Phosphate (Decadron 4mg/ml vial) 6 mg DAILY IVP 03/13/20 09:00 03/21/20 23:59 03/21/20 09:50 Enoxaparin Sodium (Lovenox) 30 mg DAILY SUBQ 03/15/20 09:00 06/13/20 08:59 03/21/20 09:51 Famotidine (Pepcid) 20 mg DAILY ORAL 03/13/20 09:00 06/11/20 08:59 03/21/20 09:50 Ondansetron HCl (Zofran) 4 mg Q6H PRN IVP Nausea & Vomiting 03/12/20 23:45 04/11/20 23:44 Polyethylene Glycol (Miralax) 17 gm DAILYPRN PRN ORAL Constipation 03/12/20 23:45 04/11/20 23:44 Sodium Chloride 1,000 ml @ 50 mls/hr Q20H IV 03/13/20 22:45 04/12/20 22:44 03/21/20 09:49 Juice Moreno M.D. Mar 21, 2020 17:25
[2020-03-21 20:00] VITALS: BP 155/84
--- NOTE | 2020-03-21 20:54 | Cardiology Progress Note ---
Assessment/Plan Status: stable Status Narrative Assessment/Plan 1. COVID-19 viral PNA 2. SOB/ZAPIEN 3. HTN 4. Sinus bradycardia - improved 5. CHF with O2 dependence 6. Troponin leak - 0.07 top 0.04 denies chest pain Tx for viral PNA per ID. repeat troponin negative. SR, HR and SBP normal territory Subjective ROS Limited/Unobtainable: No Cardiovascular: Reports: no symptoms Respiratory: Reports: shortness of breath Gastrointestinal/Abdominal: Reports: poor appetite Genitourinary: Reports: no symptoms Subjective No acute events, resting comfortably Objective Last 24 Hour Vital Signs Date Time Temp Pulse Resp B/P (MAP) Pulse Ox O2 Delivery O2 Flow Rate FiO2 03/21/20 16:00 62 03/21/20 16:00 98.1 87 20 120/77 (91) 98 03/21/20 12:00 98.9 89 19 139/87 (104) 96 03/21/20 12:00 107 03/21/20 09:00 Nasal Cannula 2.0 03/21/20 08:00 96.8 61 20 130/91 (104) 97 03/21/20 08:00 57 03/21/20 04:00 49 03/21/20 04:00 97.3 79 18 134/76 (95) 99 03/21/20 00:00 97.6 67 18 149/82 (104) 96 03/20/20 23:57 50 03/20/20 21:00 Nasal Cannula 3.0 03/20/20 21:00 94 Nasal Cannula 2.0 28 General Appearance: no apparent distress EENT: PERRL/EOMI Neck: no JVD Cardiovascular: regular rhythm Respiratory/Chest: no respiratory distress, no accessory muscle use Intake and Output 03/20/20 03/21/20 19:00 07:00 Intake Total 290 ml 910 ml Output Total 1200 ml Balance -910 ml 910 ml Intake Oral 140 ml 360 ml IV Total 150 ml 550 ml Output Urine Total 1200 ml # Voids 3 4 Radha Guzman PA-C Mar 21, 2020 20:54
[2020-03-22] VITALS: BP 137/96
[2020-03-22 04:00] VITALS: BP 143/86
--- NOTE | 2020-03-22 06:13 | Hematology/Onc Progress Note ---
Assessment/Plan Assessment/Plan 1. Thrombocytopenia is very likely related to COVID-19 pneumonia++++++. --> On remdesivir and Decadron per Dr. Moreno. --> On ceftriaxone and azithromycin per Dr. Bruce. --> Currently saturating well on low-flow oxygen. --> per pulm and id recs --> hep and hiv is neg --> us abd shows fatty liver disease] --> plt 147-->193 2. Leukopenia due to covid19++ --> smear is noted 3. Elevated D-dimer. --> duplex lower legs neg 4. Respiratory alkalosis. --> per pulm 5. Dvt ppx lovenox sq Appreciate consultation and waldemar RN Subjective Constitutional: Denies: no symptoms, chills, fever, malaise, weakness, other HEENT: Denies: no symptoms, eye pain, blurred vision, tearing, double vision, ear pain, ear discharge, nose pain, nose congestion, throat pain, throat swelling, mouth pain, mouth swelling, other Cardiovascular: Denies: no symptoms, chest pain, edema, irregular heart rate, lightheadedness, palpitations, syncope, other Respiratory: Denies: no symptoms, cough, shortness of breath, SOB with excertion, SOB at rest, sputum, wheezing, other Gastrointestinal/Abdominal: Denies: no symptoms, abdomen distended, abdominal pain, black stools, tarry stools, blood in stool, constipated, diarrhea, difficulty swallowing, nausea, poor appetite, poor fluid intake, rectal bleeding, vomiting, other Endocrine: Denies: no symptoms, excessive sweating, flushing, intolerance to cold, intolerance to heat, increased hunger, increased thirst, increased urine, unexplained weight gain, unexplained weight loss, other Allergies: Coded Allergies: No Known Allergies (Unverified , 03/12/20) Subjective 03/16 asymptomatic, on 2lnc, no bleeding, meds noted 03/17 on 2lnc, no bleeding, wbc 2.4, labs reviewed, meds noted 03/18 remains on 2lnc, on lovenox, ctx and dex, labs noted 03/20 labs from am pending, no bleeding or night sweats 03/21 denies any pain, no bleeding or chills, labs reviewed yesterdays 03/22 labs noted, is on lovenox, tolerating well, meds reviewed Objective Objective Current Medications Medications (Trade) Dose Ordered Sig/Marcello Route PRN Reason Start Time Stop Time Status Last Admin Dose Admin Acetaminophen (Tylenol) 650 mg Q6H PRN ORAL For Headache 03/18/20 12:30 04/17/20 12:29 03/18/20 12:26 Enoxaparin Sodium (Lovenox) 30 mg DAILY SUBQ 03/15/20 09:00 06/13/20 08:59 03/21/20 09:51 Famotidine (Pepcid) 20 mg DAILY ORAL 03/13/20 09:00 06/11/20 08:59 03/21/20 09:50 Ondansetron HCl (Zofran) 4 mg Q6H PRN IVP Nausea & Vomiting 03/12/20 23:45 04/11/20 23:44 Polyethylene Glycol (Miralax) 17 gm DAILYPRN PRN ORAL Constipation 03/12/20 23:45 04/11/20 23:44 Sodium Chloride 1,000 ml @ 50 mls/hr Q20H IV 03/13/20 22:45 04/12/20 22:44 03/22/20 04:34 Last 24 Hour Vital Signs Date Time Temp Pulse Resp B/P (MAP) Pulse Ox O2 Delivery O2 Flow Rate FiO2 03/22/20 04:00 98.3 60 16 143/86 (105) 97 03/22/20 04:00 53 03/22/20 00:00 53 03/22/20 00:00 98.5 62 15 137/96 (110) 97 03/21/20 21:00 Room Air 03/21/20 20:00 98.3 69 16 155/84 (107) 95 03/21/20 20:00 60 03/21/20 16:00 62 03/21/20 16:00 98.1 87 20 120/77 (91) 98 03/21/20 12:00 98.9 89 19 139/87 (104) 96 03/21/20 12:00 107 03/21/20 09:00 Nasal Cannula 2.0 03/21/20 08:00 96.8 61 20 130/91 (104) 97 03/21/20 08:00 57 03/21/20 04:00 49 03/21/20 04:00 97.3 79 18 134/76 (95) 99 03/21/20 00:00 97.6 67 18 149/82 (104) 96 03/20/20 23:57 50 03/20/20 21:00 Nasal Cannula 3.0 03/20/20 21:00 94 Nasal Cannula 2.0 28 03/20/20 20:00 53 03/20/20 20:00 97.0 63 18 155/87 (109) 97 03/20/20 16:00 96.5 81 20 138/76 (96) 100 03/20/20 16:00 82 03/20/20 12:03 97.7 67 19 139/67 (91) 100 03/20/20 12:00 75 03/20/20 08:44 96 Nasal Cannula 2.0 03/20/20 08:39 Nasal Cannula 3.0 03/20/20 08:36 84 03/20/20 08:00 96.6 100 21 134/81 (98) 97 Intake and Output 03/21/20 03/22/20 19:00 07:00 Intake Total 450 ml 810 ml Balance 450 ml 810 ml Intake Oral 400 ml 360 ml IV Total 50 ml 450 ml # Voids 3 4 # Bowel Movements 1 Labs Test 03/19/20 09:05 03/20/20 08:00 Sodium Level 139 MMOL/L (136-145) 140 MMOL/L (136-145) Potassium Level 3.0 MMOL/L (3.5-5.1) 3.5 MMOL/L (3.5-5.1) Chloride Level 105 MMOL/L (98-107) 106 MMOL/L (98-107) Carbon Dioxide Level 27 MMOL/L (21-32) 27 MMOL/L (21-32) Anion Gap 7 mmol/L (5-15) 8 mmol/L (5-15) Blood Urea Nitrogen 17 mg/dL (7-18) 17 mg/dL (7-18) Creatinine 0.9 MG/DL (0.55-1.30) 0.8 MG/DL (0.55-1.30) Estimat Glomerular Filtration Rate 59.7 mL/min (>60) > 60 mL/min (>60) Glucose Level 181 MG/DL (74-106) 124 MG/DL (74-106) Calcium Level 8.0 MG/DL (8.5-10.1) 8.7 MG/DL (8.5-10.1) White Blood Count 5.2 K/UL (4.8-10.8) Red Blood Count 4.42 M/UL (4.20-5.40) Hemoglobin 14.5 G/DL (12.0-16.0) Hematocrit 40.8 % (37.0-47.0) Mean Corpuscular Volume 92 FL (80-99) Mean Corpuscular Hemoglobin 32.7 PG (27.0-31.0) Mean Corpuscular Hemoglobin Concent 35.5 G/DL (32.0-36.0) Red Cell Distribution Width 13.8 % (11.6-14.8) Platelet Count 246 K/UL (150-450) Mean Platelet Volume 8.1 FL (6.5-10.1) Neutrophils (%) (Auto) % (45.0-75.0) Lymphocytes (%) (Auto) % (20.0-45.0) Monocytes (%) (Auto) % (1.0-10.0) Eosinophils (%) (Auto) % (0.0-3.0) Basophils (%) (Auto) % (0.0-2.0) Differential Total Cells Counted 100 Neutrophils % (Manual) 83 % (45-75) Lymphocytes % (Manual) 10 % (20-45) Monocytes % (Manual) 7 % (1-10) Eosinophils % (Manual) 0 % (0-3) Basophils % (Manual) 0 % (0-2) Band Neutrophils 0 % (0-8) Platelet Estimate Adequate Platelet Morphology Normal Red Blood Cell Morphology Normal Height (Feet): 5 Height (Inches): 0.00 Weight (Pounds): 105 Objective Physical Exam Gen: Nad Pulm: ctab, no cwr CV: rrr, no mgr Abd: soft, nt, nd Ext: no cce Omar Lynch MD Mar 22, 2020 06:13
[2020-03-22 08:00] VITALS: BP 122/66
[2020-03-22] MEDS: Enoxaparin 30mg Inj SUBQ SCH (08:54)
--- NOTE | 2020-03-22 10:40 | Cardiology Progress Note ---
Assessment/Plan Status Narrative Assessment/Plan 1. COVID-19 viral PNA 2. SOB/ZAPIEN 3. HTN 4. Sinus bradycardia - improved 5. CHF with O2 dependence 6. Troponin leak - 0.07 top 0.04 denies chest pain Tx for viral PNA per ID. repeat troponin negative. SR, HR and SBP normal territory Subjective Cardiovascular: Reports: no symptoms Respiratory: Reports: shortness of breath Gastrointestinal/Abdominal: Reports: poor appetite Genitourinary: Reports: no symptoms Subjective No acute events, resting comfortably Objective Last 24 Hour Vital Signs Date Time Temp Pulse Resp B/P (MAP) Pulse Ox O2 Delivery O2 Flow Rate FiO2 03/22/20 08:14 97 Room Air 21 03/22/20 08:00 75 03/22/20 04:00 98.3 60 16 143/86 (105) 97 03/22/20 04:00 53 03/22/20 00:00 53 03/22/20 00:00 98.5 62 15 137/96 (110) 97 03/21/20 21:00 Room Air 03/21/20 20:00 98.3 69 16 155/84 (107) 95 03/21/20 20:00 60 03/21/20 16:00 62 03/21/20 16:00 98.1 87 20 120/77 (91) 98 03/21/20 12:00 98.9 89 19 139/87 (104) 96 03/21/20 12:00 107 General Appearance: no apparent distress EENT: PERRL/EOMI Neck: no JVD Rhythm: NSR Cardiovascular: normal rate Respiratory/Chest: no respiratory distress Abdomen: soft Intake and Output 03/21/20 03/22/20 19:00 07:00 Intake Total 450 ml 810 ml Balance 450 ml 810 ml Intake Oral 400 ml 360 ml IV Total 50 ml 450 ml # Voids 3 4 # Bowel Movements 1 Radha Guzman PA-C Mar 22, 2020 10:40
--- NOTE | 2020-03-22 11:15 | General Progress Note ---
Subjective Allergies: Coded Allergies: No Known Allergies (Unverified , 03/12/20) Objective Last 24 Hour Vital Signs Date Time Temp Pulse Resp B/P (MAP) Pulse Ox O2 Delivery O2 Flow Rate FiO2 03/22/20 08:14 97 Room Air 21 03/22/20 08:00 75 03/22/20 04:00 98.3 60 16 143/86 (105) 97 03/22/20 04:00 53 03/22/20 00:00 53 03/22/20 00:00 98.5 62 15 137/96 (110) 97 03/21/20 21:00 Room Air 03/21/20 20:00 98.3 69 16 155/84 (107) 95 03/21/20 20:00 60 03/21/20 16:00 62 03/21/20 16:00 98.1 87 20 120/77 (91) 98 03/21/20 12:00 98.9 89 19 139/87 (104) 96 03/21/20 12:00 107 Intake and Output 03/21/20 03/22/20 19:00 07:00 Intake Total 450 ml 810 ml Balance 450 ml 810 ml Intake Oral 400 ml 360 ml IV Total 50 ml 450 ml # Voids 3 4 # Bowel Movements 1 Height (Feet): 5 Height (Inches): 0.00 Weight (Pounds): 105 Assessment/Plan Status: stable Assessment/Plan: S, O: MIld SOB, seems comfortable, PHYSICAL EXAMINATION:HEAD AND NECK: Atraumatic and normocephalic. CHEST: Diffuse bronchial breathing sounds. HEART: S1, S2. Regular rate and rhythm. ABDOMEN: Soft. No organomegaly. MUSCULOSKELETAL: No gross lateralized motor deficit. NEUROLOGY: Patient is awake, alert, oriented x3. Meds: reviewed and reconciled ASSESSMENT AND PLAN: 1. COVID positive pneumonia. 2. Acute renal failure. 3. Leukopenia. 4. Thrombocytopenia. 5. Abnormal LFT. 6. Abnormal troponin levels. 7. GI and DVT prophylaxes. PLAN OF CARE: Current management. interval improvement in wbc counts Notes from Hem is reviewed I called and left a VM for the daughter on Mar 15 current management minimal sob, once clear from pulmonary , will be ok to continue isolation at home D/w Pulmonary and Ms Gar NEELA, cleared from Pulmonary view point for DC home with Home O2 Alison Bruce MD Mar 22, 2020 11:15
[2020-03-22 12:00] VITALS: BP 109/70
--- NOTE | 2020-03-22 12:32 | Pulmonology Progress Note ---
Subjective ROS Limited/Unobtainable: No Interval Events: None new Constitutional: Reports: no symptoms HEENT: Repors: no symptoms Respiratory: Reports: no symptoms Cardiovascular: Reports: no symptoms Gastrointestinal/Abdominal: Reports: no symptoms Psychiatric: Reports: no symptoms Skin: Reports: no symptoms Musculoskeletal: Reports: no symptoms Allergies: Coded Allergies: No Known Allergies (Unverified , 03/12/20) Objective Last 24 Hour Vital Signs Date Time Temp Pulse Resp B/P (MAP) Pulse Ox O2 Delivery O2 Flow Rate FiO2 03/22/20 08:14 97 Room Air 21 03/22/20 08:00 75 03/22/20 04:00 98.3 60 16 143/86 (105) 97 03/22/20 04:00 53 03/22/20 00:00 53 03/22/20 00:00 98.5 62 15 137/96 (110) 97 03/21/20 21:00 Room Air 03/21/20 20:00 98.3 69 16 155/84 (107) 95 03/21/20 20:00 60 03/21/20 16:00 62 03/21/20 16:00 98.1 87 20 120/77 (91) 98 Intake and Output 03/21/20 03/22/20 19:00 07:00 Intake Total 450 ml 810 ml Balance 450 ml 810 ml Intake Oral 400 ml 360 ml IV Total 50 ml 450 ml # Voids 3 4 # Bowel Movements 1 Objective 03/22 saturating well on RA 03/21 no change; wean down oxygen as tolerated 03/18 saturating well on 2 L NC 03/17 saturating well on 3L NC 03/16 2D echo at the time of exam; NAD 03/15 PT eval at the time of exam General Appearance: no acute distress HEENT: normocephalic Respiratory: chest wall non-tender, lungs clear Cardiovascular: normal peripheral pulses Abdomen: normal bowel sounds Extremities: no cyanosis Current Medications Medications (Trade) Dose Ordered Sig/Marcello Route PRN Reason Start Time Stop Time Status Last Admin Dose Admin Acetaminophen (Tylenol) 650 mg Q6H PRN ORAL For Headache 03/18/20 12:30 04/17/20 12:29 03/18/20 12:26 Enoxaparin Sodium (Lovenox) 30 mg DAILY SUBQ 03/15/20 09:00 06/13/20 08:59 03/22/20 08:54 Famotidine (Pepcid) 20 mg DAILY ORAL 03/13/20 09:00 06/11/20 08:59 03/22/20 08:53 Ondansetron HCl (Zofran) 4 mg Q6H PRN IVP Nausea & Vomiting 03/12/20 23:45 04/11/20 23:44 Polyethylene Glycol (Miralax) 17 gm DAILYPRN PRN ORAL Constipation 03/12/20 23:45 04/11/20 23:44 Sodium Chloride 1,000 ml @ 50 mls/hr Q20H IV 03/13/20 22:45 04/12/20 22:44 03/22/20 04:34 Assessment/Plan Assessment/Plan 1. COVID-19 pneumonia with hypoxia. - Completed Decadron - s/p remdesivir, ceftriaxone and azithromycin - Currently saturating well on RA 2. Leukopenia. - improved 3. Elevated D-dimer. - venous duplex US LE- neg - on Lovenox 4. Respiratory alkalosis. 5. CHF - s/p 2D echo; EF 60-65% - management per cardio medically stable for discharge from pulmonary stand point of view The care of this patient was discussed with my supervising physician Time spent for this encounter was approximately 31 minutes Tan Garcia Mar 22, 2020 12:32
[2020-03-22 16:00] VITALS: BP 113/72
[2020-03-22 20:00] VITALS: BP 139/84
--- NOTE | 2020-03-22 20:50 | Infectious Diseases Prog Note ---
Assessment/Plan Problems: (1) Suspected COVID-19 virus infection Assessment & Plan: With positive rapid test , and PCR and high inflammatory markers due to COVID 19 viral infection, S/P Remdisvir iv for 5 days and decadrone for 10 days , keep in enhanced droplets isolation . (2) Exposure to COVID-19 virus Assessment & Plan: most likely from her , keep in isolation, WITH POSITIVE PCR which confirm the diagnosis of COVID 19 (3) Pneumonia due to COVID-19 virus Assessment & Plan: improving , S/P Remdisvir with decadron , droplets isolation, aspiration precaution (4) Acute respiratory failure due to COVID-19 Assessment & Plan: with hypoxemia , resolved sating well on room air , S/P d ecadron and remdisvir Subjective Constitutional: Reports: no symptoms HEENT: Reports: no symptoms Respiratory: Reports: no symptoms Breasts: Reports: no symptoms Cardiovascular: Reports: no symptoms Gastrointestinal/Abdominal: Reports: no symptoms Genitourinary: Reports: no symptoms Neurologic: Reports: no symptoms Psychiatric: Reports: no symptoms Skin: Reports: no symptoms Endocrine: Reports: no symptoms Hematologic: Reports: no symptoms Musculoskeletal: Reports: no symptoms Allergies: Coded Allergies: No Known Allergies (Unverified , 03/12/20) she is more awake and responsive, satting well on low flow oxygen, afebrile, no shortness of breath and no diarrhea Objective Last 24 Hour Vital Signs Date Time Temp Pulse Resp B/P (MAP) Pulse Ox O2 Delivery O2 Flow Rate FiO2 03/22/20 20:20 96 Room Air 21 03/22/20 16:00 97.5 88 18 113/72 (86) 97 03/22/20 16:00 74 03/22/20 12:00 97.5 92 22 109/70 (83) 99 03/22/20 12:00 71 03/22/20 09:00 Room Air 03/22/20 08:14 97 Room Air 21 03/22/20 08:00 75 03/22/20 08:00 97.7 76 20 122/66 (84) 97 03/22/20 04:00 98.3 60 16 143/86 (105) 97 03/22/20 04:00 53 03/22/20 00:00 53 03/22/20 00:00 98.5 62 15 137/96 (110) 97 03/21/20 21:00 Room Air Height (Feet): 5 Height (Inches): 0.00 Weight (Pounds): 105 General Appearance: WD/WN, no acute distress HEENT: normocephalic, atraumatic, anicteric, mucous membranes moist, PERRL Respiratory/Chest: chest wall non-tender, lungs clear, normal breath sounds, no respiratory distress, no accessory muscle use Cardiovascular: normal peripheral pulses, normal rate, regular rhythm, no gallop/murmur, no JVD Abdomen: normal bowel sounds, soft, non tender, no organomegaly, non distended, no mass, no scars Genitourinary: normal external genitalia Extremities: no cyanosis, no clubbing Skin: no rash, no lesions, no ulcers 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, alert, responsive Lymphatic: no neck adenopathy, no groin adenopathy Musculoskeletal: normal muscle bulk, no effusion Current Medications Medications (Trade) Dose Ordered Sig/Marcello Route PRN Reason Start Time Stop Time Status Last Admin Dose Admin Acetaminophen (Tylenol) 650 mg Q6H PRN ORAL For Headache 03/18/20 12:30 04/17/20 12:29 03/18/20 12:26 Enoxaparin Sodium (Lovenox) 30 mg DAILY SUBQ 03/15/20 09:00 06/13/20 08:59 03/22/20 08:54 Famotidine (Pepcid) 20 mg DAILY ORAL 03/13/20 09:00 06/11/20 08:59 03/22/20 08:53 Ondansetron HCl (Zofran) 4 mg Q6H PRN IVP Nausea & Vomiting 03/12/20 23:45 04/11/20 23:44 Polyethylene Glycol (Miralax) 17 gm DAILYPRN PRN ORAL Constipation 03/12/20 23:45 04/11/20 23:44 Sodium Chloride 1,000 ml @ 50 mls/hr Q20H IV 03/13/20 22:45 04/12/20 22:44 03/22/20 04:34 Juice Moreno M.D. Mar 22, 2020 20:50
[2020-03-23] VITALS: BP 124/65
[2020-03-23 04:00] VITALS: BP 122/65
--- NOTE | 2020-03-23 06:24 | Hematology/Onc Progress Note ---
Assessment/Plan Assessment/Plan 1. Thrombocytopenia is very likely related to COVID-19 pneumonia++++++. --> On remdesivir and Decadron per Dr. Moreno. --> On ceftriaxone and azithromycin per Dr. Bruce. --> Currently saturating well on low-flow oxygen. --> per pulm and id recs --> hep and hiv is neg --> us abd shows fatty liver disease] --> plt 147-->193 2. Leukopenia due to covid19++ --> smear is noted 3. Elevated D-dimer. --> duplex lower legs neg 4. Respiratory alkalosis. --> per pulm 5. Dvt ppx lovenox sq Appreciate consultation and waldemar RN Subjective HEENT: Denies: no symptoms, eye pain, blurred vision, tearing, double vision, ear pain, ear discharge, nose pain, nose congestion, throat pain, throat swelling, mouth pain, mouth swelling, other Cardiovascular: Denies: no symptoms, chest pain, edema, irregular heart rate, lightheadedness, palpitations, syncope, other Respiratory: Denies: no symptoms, cough, shortness of breath, SOB with excertion, SOB at rest, sputum, wheezing, other Gastrointestinal/Abdominal: Denies: no symptoms, abdomen distended, abdominal pain, black stools, tarry stools, blood in stool, constipated, diarrhea, difficulty swallowing, nausea, poor appetite, poor fluid intake, rectal bleeding, vomiting, other Genitourinary: Denies: no symptoms, burning, discharge, frequency, flank pain, hematuria, incontinence, pain, urgency, other Neurologic/Psychiatric: Denies: no symptoms, anxiety, depressed, emotional problems, headache, numbness, paresthesia, pre-existing deficit, seizure, tingling, tremors, weakness, other Endocrine: Denies: no symptoms, excessive sweating, flushing, intolerance to cold, intolerance to heat, increased hunger, increased thirst, increased urine, unexplained weight gain, unexplained weight loss, other Hematologic/Lymphatic: Denies: no symptoms, anemia, easy bleeding, easy bruising, adenopathy, other Allergies: Coded Allergies: No Known Allergies (Unverified , 03/12/20) Subjective 03/16 asymptomatic, on 2lnc, no bleeding, meds noted 03/17 on 2lnc, no bleeding, wbc 2.4, labs reviewed, meds noted 03/18 remains on 2lnc, on lovenox, ctx and dex, labs noted 03/20 labs from am pending, no bleeding or night sweats 03/21 denies any pain, no bleeding or chills, labs reviewed yesterdays 03/22 labs noted, is on lovenox, tolerating well, meds reviewed 03/23 stable, no events, on lovenox, completed abx Objective Objective Current Medications Medications (Trade) Dose Ordered Sig/Marcello Route PRN Reason Start Time Stop Time Status Last Admin Dose Admin Acetaminophen (Tylenol) 650 mg Q6H PRN ORAL For Headache 03/18/20 12:30 04/17/20 12:29 03/18/20 12:26 Enoxaparin Sodium (Lovenox) 30 mg DAILY SUBQ 03/15/20 09:00 06/13/20 08:59 03/22/20 08:54 Famotidine (Pepcid) 20 mg DAILY ORAL 03/13/20 09:00 06/11/20 08:59 03/22/20 08:53 Ondansetron HCl (Zofran) 4 mg Q6H PRN IVP Nausea & Vomiting 03/12/20 23:45 04/11/20 23:44 Polyethylene Glycol (Miralax) 17 gm DAILYPRN PRN ORAL Constipation 03/12/20 23:45 04/11/20 23:44 Sodium Chloride 1,000 ml @ 50 mls/hr Q20H IV 03/13/20 22:45 04/12/20 22:44 03/22/20 23:15 Last 24 Hour Vital Signs Date Time Temp Pulse Resp B/P (MAP) Pulse Ox O2 Delivery O2 Flow Rate FiO2 03/23/20 04:00 98 03/23/20 04:00 17 122/65 (84) 98 03/23/20 00:00 97.0 74 18 124/65 (84) 98 03/23/20 00:00 98 03/23/20 00:00 98 03/22/20 21:00 Room Air 03/22/20 20:20 96 Room Air 21 03/22/20 20:00 98.4 74 18 139/84 (102) 98 03/22/20 20:00 98 03/22/20 16:00 97.5 88 18 113/72 (86) 97 03/22/20 16:00 74 03/22/20 12:00 97.5 92 22 109/70 (83) 99 03/22/20 12:00 71 03/22/20 09:00 Room Air 03/22/20 08:14 97 Room Air 21 03/22/20 08:00 75 03/22/20 08:00 97.7 76 20 122/66 (84) 97 03/22/20 04:00 98.3 60 16 143/86 (105) 97 03/22/20 04:00 53 03/22/20 00:00 53 03/22/20 00:00 98.5 62 15 137/96 (110) 97 03/21/20 21:00 Room Air 03/21/20 20:00 98.3 69 16 155/84 (107) 95 03/21/20 20:00 60 03/21/20 16:00 62 03/21/20 16:00 98.1 87 20 120/77 (91) 98 03/21/20 12:00 98.9 89 19 139/87 (104) 96 03/21/20 12:00 107 03/21/20 09:00 Nasal Cannula 2.0 03/21/20 08:00 96.8 61 20 130/91 (104) 97 03/21/20 08:00 57 Intake and Output 03/22/20 03/23/20 19:00 07:00 Intake Total 250 ml 350 ml Balance 250 ml 350 ml Intake Oral 200 ml IV Total 50 ml 350 ml # Voids 2 Labs Test 03/20/20 08:00 White Blood Count 5.2 K/UL (4.8-10.8) Red Blood Count 4.42 M/UL (4.20-5.40) Hemoglobin 14.5 G/DL (12.0-16.0) Hematocrit 40.8 % (37.0-47.0) Mean Corpuscular Volume 92 FL (80-99) Mean Corpuscular Hemoglobin 32.7 PG (27.0-31.0) Mean Corpuscular Hemoglobin Concent 35.5 G/DL (32.0-36.0) Red Cell Distribution Width 13.8 % (11.6-14.8) Platelet Count 246 K/UL (150-450) Mean Platelet Volume 8.1 FL (6.5-10.1) Neutrophils (%) (Auto) % (45.0-75.0) Lymphocytes (%) (Auto) % (20.0-45.0) Monocytes (%) (Auto) % (1.0-10.0) Eosinophils (%) (Auto) % (0.0-3.0) Basophils (%) (Auto) % (0.0-2.0) Differential Total Cells Counted 100 Neutrophils % (Manual) 83 % (45-75) Lymphocytes % (Manual) 10 % (20-45) Monocytes % (Manual) 7 % (1-10) Eosinophils % (Manual) 0 % (0-3) Basophils % (Manual) 0 % (0-2) Band Neutrophils 0 % (0-8) Platelet Estimate Adequate Platelet Morphology Normal Red Blood Cell Morphology Normal Sodium Level 140 MMOL/L (136-145) Potassium Level 3.5 MMOL/L (3.5-5.1) Chloride Level 106 MMOL/L (98-107) Carbon Dioxide Level 27 MMOL/L (21-32) Anion Gap 8 mmol/L (5-15) Blood Urea Nitrogen 17 mg/dL (7-18) Creatinine 0.8 MG/DL (0.55-1.30) Estimat Glomerular Filtration Rate > 60 mL/min (>60) Glucose Level 124 MG/DL (74-106) Calcium Level 8.7 MG/DL (8.5-10.1) Height (Feet): 5 Height (Inches): 0.00 Weight (Pounds): 105 Objective Physical Exam Gen: Nad Pulm: ctab, no cwr CV: rrr, no mgr Abd: soft, nt, nd Ext: no cce Omar Lynch MD Mar 23, 2020 06:24
[2020-03-23 08:00] VITALS: BP 122/73
--- NOTE | 2020-03-23 10:22 | Cardiology Progress Note ---
Assessment/Plan Status: stable Status Narrative Assessment/Plan 1. COVID-19 viral PNA 2. SOB/ZAPIEN 3. HTN 4. Sinus bradycardia - improved 5. CHF with O2 dependence 6. Troponin leak - 0.07 down to 0.04 denies chest pain Tx for viral PNA per ID. repeat troponin negative. SR, HR and SBP normal territory. Continue medical therapy. Subjective ROS Limited/Unobtainable: No Cardiovascular: Reports: no symptoms Respiratory: Reports: shortness of breath Gastrointestinal/Abdominal: Reports: poor appetite Genitourinary: Reports: no symptoms Subjective No acute events, resting comfortably Objective Last 24 Hour Vital Signs Date Time Temp Pulse Resp B/P (MAP) Pulse Ox O2 Delivery O2 Flow Rate FiO2 03/23/20 08:38 Room Air 03/23/20 08:00 97.5 76 18 122/73 (89) 96 03/23/20 04:00 98 03/23/20 04:00 17 122/65 (84) 98 03/23/20 00:00 97.0 74 18 124/65 (84) 98 03/23/20 00:00 98 03/23/20 00:00 98 03/22/20 21:00 Room Air 03/22/20 20:20 96 Room Air 21 03/22/20 20:00 98.4 74 18 139/84 (102) 98 03/22/20 20:00 98 03/22/20 16:00 97.5 88 18 113/72 (86) 97 03/22/20 16:00 74 03/22/20 12:00 97.5 92 22 109/70 (83) 99 03/22/20 12:00 71 General Appearance: no apparent distress EENT: PERRL/EOMI Neck: no JVD Cardiovascular: normal rate Respiratory/Chest: no respiratory distress Abdomen: soft Extremities: trace edema Intake and Output 03/22/20 03/23/20 19:00 07:00 Intake Total 250 ml 900 ml Balance 250 ml 900 ml Intake Oral 200 ml 100 ml IV Total 50 ml 800 ml # Voids 2 Radha Guzman PA-C Mar 23, 2020 10:22
--- NOTE | 2020-03-25 15:18 | Discharge Summary ---
Discharge Summary Discharge Summary _ Date of admission: 03/12/2020 Date of discharge: 03/23/[address] Bruce History of Present Illness and Brief Hospital Course Ms. Mckeon is a 84-year-old primarily Thai speaking female with history of hypertension, who presented to the ED for evaluation of myalgias, fevers, and shortness of breath. Patient reported 1 day history of diffuse aches and muscles, fatigue, decreased appetite, nonproductive cough and low-grade fevers. According to the patient her was hospitalized with COVID-19 pneumonia at [facility]. Patient tested positive for COVID-19 in the ER. Patient was saturating at 90% on room air, but improved with supplemental oxygen. Chest x- ray showed bilateral lung opacities. She received ceftriaxone and azithromycin as well as Decadron in the ER and was admitted to the hospital for further management in care. She tested positive for COVID-19 with rapid test. A PCR test was ordered to co nfirm the diagnosis. Remdesivir was added to the regimen, and she was kept in enhanced droplet isolation. Inflammatory markers and D-dimer were closely monitored. Patient was provided with low flow oxygen which was titrated as tolerated at the later stage of her admission. Patient initially presented with elevated D-dimer. However venous duplex ultrasound of lower extremities showed no evidence for DVT. Patient was started on Lovenox for DVT prophylaxis measure during her admission. Her labs revealed troponin level of 0.07 and was evaluated with 2D echocardiogram which revealed left ventricular ejection fraction of 60%. By the day of discharge patient showed normal work of breathing on room air, without any signs of respiratory distress. Patient no longer complained of cough, myalgia, fevers, or shortness of breath. Patient was picked up by her daughter and was instructed to continue self-isolation for the next 5 days. Consultants: Cardiology SULLY Conde Hematology oncology Dr. Lynch Infectious disease Dr. Moreno Pulmonology Dr. Marin Discharge Condition Stable and improved Discharge Activity As tolerated Final diagnoses Acute renal failure Leukopenia Thrombocytopenia Abnormal LFT Abnormal troponin levels Hypertension Sinus bradycardia CHF I have been assigned to dictate discharge summary for this account. Tan Garcia Mar 25, 2020 15:18
== END 2020-03-23 09:45 | disposition home health service (06) | DRG 177 ==
LOC: EDBD 16:49 → EMR 17:20 → 2E 18:26 → EDBEDREQ 03-13 18:23 → 2E 03-14 16:48
DX: U07.1 COVID-19 (principal); J12.89 Other viral pneumonia; J96.01 Acute respiratory failure with hypoxia; N17.9 Acute kidney failure, unspecified; E87.3 Alkalosis; D69.6 Thrombocytopenia, unspecified; I11.0 Hypertensive heart disease with heart failure; R00.1 Bradycardia, unspecified; I50.9 Heart failure, unspecified
CPT/HCPCS: 36415; 71045; 76700; 80048; 80053; 81003; 82248; 82550; 82553; 82728; 82803; 83605; 83615; 83690; 83735; 83880; 84100; 84484; 85007; 85025; 85060; 85379; 85610; 85730; 86140; 86703; 86705; 86709; 86710; 86803; 87040; 87340; 93005; 93306; 93970; 96365; 96367; 96375; 99291; J3490; J7030; J8499; U0002